=== PATIENT | female | born 1975 | race Caucasian/White ===

== ENCOUNTER → 2017-05-15 11:53 | Outpatient (CLI) | payer OTHER, SELFPAY ==
--- NOTE | 2017-05-15 11:55 | HPBI_ITS ---
MAMMOGRAPHY - BILATERAL SCREENING REASON FOR EXAM: Female, 42 years old. Routine annual screening examination. PERTINENT HISTORY: Sister with breast cancer. Aunts with breast cancer. TECHNIQUE: Digital bilateral breast robert (3D mammographic acquisition) in the CC and MLO projections. 2-D mediolateral oblique (MLO) and craniocaudad (CC) views of both breasts were obtained. CAD: Full Field Digital Mammography with Computer Added Detection was performed. COMPARISON: Comparison is made with prior study dated April 18, 2016 and November 17, 2014. FINDINGS: Breast Composition: There are scattered areas of fibroglandular density. There are no dominant masses or suspicious calcifications. No other significant abnormalities are identified. There has been no significant change since the prior study. HPBI/SCREENING MAMM (CAD), BILAT IMPRESSION: Stable bilateral screening mammogram. Yearly follow-up mammogram recommended. (A) ASSESSMENT CATEGORY: BIRADS Category 1: Negative. A letter regarding these results will be sent to the patient by the facility within 30 days. Approximately 10% of breast cancers are not detected by mammography. A normal mammogram should not delay biopsy of a clinically suspicious abnormality. [id number] Electronically Signed: Matteo Najera MD at 14:32 EDT Tel [phone], Service support ,
== END ==
PROVIDERS: Family Provider Family Medicine; PCP Family Medicine; Visit Provider Obstetrics & Gynecology
DX: Z12.31 Encounter for screening mammogram for malignant neoplasm of breast (principal)
CPT/HCPCS: 77063; 77067

== ENCOUNTER → 2018-06-01 14:48 | Outpatient (CLI) | payer OTHER, SELFPAY ==
--- NOTE | 2018-06-01 15:00 | BD_ITS ---
STUDY: DUAL ENERGY X-RAY ABSORPTIOMETRY / DXA REASON FOR EXAM: Female, 43 years old. Early menopause. Loss of height. TECHNIQUE: Bone Mineral Density (BMD) measurements of lumbar spine and bilateral hips were obtained. COMPARISON: None. FINDINGS: Lumbar Spine (L1-L4): g/cm2 (1.339) / T-score (1.3) / Z-score (1.3) Findings are suggestive of normal bone density with a low fracture risk. Left Femur Total: g/cm2 (1.062) / T-score (0.4) / Z-score (0.7) Left Femoral Neck: g/cm2 (1.075) / T-score (0.3) / Z-score (0.8) Right Femur Total: g/cm2 (0.950) / T-score (-0.5) / Z-score (-0.2) Right Femoral Neck: g/cm2 (0.958) / T-score (-0.6) / Z-score (0.0) BD/Dexa Bone Density Study IMPRESSION: The patient is considered normal as outlined below according to World [place] Organization (WHO) criteria with a low fracture risk. Reference Information: The T-score is the number of standard deviations above or below the standard which is normal for young adults at their peak bone mineral density. The World Health Organization (WHO) interprets the T-scores as follows: Above -1 Normal bone density Between -1 and -2.5 Osteopenia Equal to / or below -2.5 Osteoporosis As a practical clinical guideline, osteopenia may be graded as follows: Mild -1 through -1.5 Moderate -1.6 through -2.0 Severe -2.1 through -2.4 The Z-score is the number of standard deviations above or below age-matched controls. A Z-score of less than -1.5 would be considered abnormal. References: 1. NIH Osteoporosis and Related Bone Diseases http://www.osteo.org 2. International Society for Clinical Densitometry http://www.iscd.org 3. National Osteoporosis Foundation http://www.nof.org Electronically Signed: Matteo Najera, at 11:34 EDT , Service support ,
[2018-06-01 15:44] LABS: Absolute Lymphocyte Count 1.74 X10^3/ul (0.83-4.51); Absolute Neutrophil Count 2.7 X10^3/uL (2.0-7.7); Basophil# 0.03 X10^3/uL; Basophil% 0.6 % (0-1); Hemoglobin 14.2 g/dl (12.0-15.0); Lymphocyte # 1.74 X10^3/ul (4.0); Lymphocyte % 34.8 % (19-41); Mean Corp Hgb Conc 33.8 g/gl (32-36); Mean Corpuscular Hgb 30.1 pg (27.0-32.0); Mean Corpuscular Volume 89.2 fL (81-99); Mean Platelet Vol. 11.3 fl (6.2-12.0); Monocyte# 0.45 X10^3/uL; Neutrophil # 2.67 X10^3/uL (2.7-7.7); Neutrophil % 53.4 % (47-70); Platelet Count 203 K/mm3 (150-450); RBC Distribution Width CV 12.6 % (11.6-14.6); RBC Distribution Width SD 40.6 fl (35.1-43.9); Red Blood Count 4.71 M/mm3 (4.2-5.4)
[2018-06-01 15:45] LABS: POSITIVE COUNT NO; POSITIVE DIFFERENTIAL NO; POSITIVE MORPHOLOGY NO
[2018-06-01 16:06] LABS: Erythrocyte Sedimentation Rate 11 mm/hr (0-20)
[2018-06-01 16:15] LABS: CRP, High Sensitivity Cardiac 1.93 mg/L
[2018-06-01 16:24] LABS: Vitamin D,25 Hydroxy 38.6 ng/mL (29.95-100.01)
[2018-06-03 16:07] LABS: PROEL- A/G Ratio 1.2 (0.7-1.7); PROEL- Albumin 3.9 g/dL (2.9-4.4); PROEL- Alpha-1 Globulin 0.2 g/dL (0.0-0.4); PROEL- Alpha-2 Globulin 0.7 g/dL (0.4-1.0); PROEL- Beta Globulin 1.3 g/dL (0.7-1.3); PROEL- Globulin, Total 3.2 g/dL (2.2-3.9); PROEL- TOTAL PROTEIN 7.1 g/dL (6.0-8.5)
== END ==
LOC: OPBD 14:53 → PAVLAB 15:13
PROVIDERS: Referring Provider Orthopaedic Surgery; Visit Provider Orthopaedic Surgery
DX: M53.3 Sacrococcygeal disorders, not elsewhere classified (principal)
CPT/HCPCS: 36415; 77080; 82306; 84165; 85025; 85652; 86141

== ENCOUNTER → 2018-06-11 10:25 | Outpatient (CLI) | payer OTHER, SELFPAY ==
[2014-12-18 18:49] VITALS: BMI 36.5
--- NOTE | 2018-06-11 10:29 | NM_ITS ---
CLINICAL: 43-year-old female with reported history of bilateral hip, pelvic and low back pain. WHOLE BODY 99m Tc MDP RADIONUCLIDE BONE SCINTIGRAPHY COMPARISON: None available FINDINGS: Following the intravenous administration of 23.3 mCi of 99m Tc MDP, whole body bone images reveal: 1. Increased radiopharmaceutical concentration is identified in the acromioclavicular and sternoclavicular compartments of both shoulders, the patellofemoral compartments of the bilateral knees, second lumbar vertebra posteriorly on the left. 2. The remaining skeletal structures are scintigraphically unremarkable with normal-appearing renal images and urinary bladder activity identified. Facilitated tracer concentration appears evident in the medial femoral and lateral tibial component of the presumably asymptomatic right knee prosthesis. No definitive increased uptake is noted in the left knee arthroplasty. Subtle facilitated uptake is noted in the greater trochanteric aspect of the left proximal femur most consistent with periostitis or trochanteric bursitis. NM/Bone Scan Whole Body IMPRESSION: 1. The increase in radiopharmaceutical concentration finding the acromioclavicular and sternoclavicular compartments of both shoulders, second lumbar vertebra and patellofemoral compartments of the bilateral knees (in the absence of patellar hardware placement) is most consistent with degenerative arthritis. 2. No other definitive scintigraphic abnormalities are defined. Electronically Signed: Gautam Vann DO at 14:10 EDT Tel , Service support ,
== END ==
PROVIDERS: Referring Provider Orthopaedic Surgery; Visit Provider Orthopaedic Surgery
DX: M53.3 Sacrococcygeal disorders, not elsewhere classified (principal)
CPT/HCPCS: 78306

== ENCOUNTER → 2018-06-18 11:52 | Outpatient (CLI) | payer OTHER, SELFPAY ==
--- NOTE | 2018-06-18 11:54 | BI_ITS ---
MAMMOGRAPHY - BILATERAL SCREENING REASON FOR EXAM: Female, 43 years old. Routine annual screening examination. PERTINENT HISTORY: Sister with breast cancer. Aunt with breast cancer. TECHNIQUE: Digital bilateral breast robert (3D mammographic acquisition) in the CC and MLO projections. 2-D mediolateral oblique (MLO) and craniocaudad (CC) views of both breasts were obtained. CAD: Full Field Digital Mammography with Computer Added Detection was performed. COMPARISON: Comparison is made with prior study dated May 15, 2017 and April 18, 1999 FINDINGS: Breast Composition: There are scattered areas of fibroglandular density. There are no dominant masses or suspicious calcifications. Stable small bilateral axillary lymph nodes. No other significant abnormalities are identified. There has been no significant change since the prior study. BI/SCREENING MAMM (CAD), BILAT IMPRESSION: Stable bilateral screening mammogram. Yearly follow-up mammogram recommended. (A) ASSESSMENT CATEGORY: BIRADS Category 2: Benign. A letter regarding these results will be sent to the patient by the facility within 30 days. Approximately 10% of breast cancers are not detected by mammography. A normal mammogram should not delay biopsy of a clinically suspicious abnormality. [id number] Electronically Signed: Matteo Najera, at 13:41 EDT , Service support ,
== END ==
PROVIDERS: Referring Provider Obstetrics & Gynecology; Visit Provider Obstetrics & Gynecology
DX: Z12.31 Encounter for screening mammogram for malignant neoplasm of breast (principal)
CPT/HCPCS: 77063; 77067

== ENCOUNTER → 2018-12-01 14:05 | Outpatient (CLI) | payer OTHER, SELFPAY ==
--- NOTE | 2018-12-01 14:15 | VDLE_ITS ---
Reason For Study: Pain/Edema Procedure LEFT Exam performed in department. GSV is normal. A preliminary report was called and/or faxed CFV is compressible, spontaneous, phasic, to Premiriamsh. competent, and demonstrates normal augmentation. FV is compressible, spontaneous, phasic, competent and demonstrates normal augmentation. POP V is compressible, spontaneous, phasic, competent and demonstrates normal augmentation. T/P Trunk is compressible. PTV is compressible. LT PerV is compressible. Interpretation Summary Deep veins of the left lower extremity are patent and compressible segmentally. There is no evidence of left lower extremity deep vein thrombosis. Valvular competence appears intact within the proximal deep venous system on the left . The left great saphenous vein appears patent and compressible segmentally. Ordering Physician: Hansa Diaz Performed By: Zohra Mathis RVT
== END ==
PROVIDERS: Referring Provider Nurse Practitioner Family; Visit Provider Nurse Practitioner Family
DX: M79.605 Pain in left leg (principal); R60.0 Localized edema
CPT/HCPCS: 93971

== ENCOUNTER 2018-12-03 13:00 | Outpatient (RCR) | payer OTHER, SELFPAY ==
--- NOTE | 2018-11-12 13:56 | HP.PTEVAL_ITS ---
Patient's Visit Information OZZY BAILON is a 43 year old F referred to Physical Therapy by Zaire Severino MD with a diagnosis of bursitis, DDD, radiculopathy. 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 - Subjective Findings: Has multiple injections in LB and L and R hips. Has had bonescans and MRIs. Has h/o B TKA. H/O SI paina nd sciatica. L hip hurts laterally. Turning in bed really hurts L hip . Doctor thinks it is coming from her LB. Has two falls long ago which hurt back/tailbone area. Can't walk too long. Loves to golf and has not been able to due to this injury this year. Swimming on vacation seemed to help. Drives an hour to work here in [place] for 10 years. L hip has hurt for 2 years. Injecctions have not helped. Had therapy for LB and hip which did not help. Had massage whcih did not help. Sleeping is tough as she cannot roll in bed. 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 Has tried to stand and is slightly better. Has some LBP but not as bad as hip. Sometimes gets numb and tingly in L leg with sitting. No problem coughing or sneexing - Pain L hip Pain Intensity (Out of 10): 0 Pain Intensity Range: 0, 9 LBP Pain Intensity (Out of 10): 0 Pain Intensity Range: 0, 10 - Objective Walks normal. Trasnfers slowly and painfully hesitantly from supine. I out of chair. L/S AROM limited in extension with slight L deviation but no pain. SB min limited without pain. flexion feels tight in LB but no increased pain. Tender to touch B gluts and into ITB and torchanteric area. Sensation WNl to gross light touch in LE. reflexes 1/3 patella and achilles. Strength LE 3+/5 hip abd and ext adn flexion without pain, knee flexion/ext 4-, ankles strength 4-. HS mod tight at -45 L 90/90 test limited with pain + SLR and -30 on R. - R SLR. ITB mod tight B. Weak core and hesitant to move especially supine. Normal hip AROM without increased pain. - Goals Goal 1:: I approp HEP water or land for stretching and ROM of LB and core strength. Goal Time Frame: 4-6 Weeks Goal 2:: LEFS <20% disability Goal Time Frame: 4-6 Weeks Goal 3:: Patient feel 50% better overall with pain no worse than 4/10 Goal Time Frame: 4-6 Weeks Goal 4:: Transfer from supine without pain or hesitancy Goal Time Frame: 4-6 Weeks - Rehabilitation Potential Physical Therapy Diagnosis: Radiculopathy and FM pain Rehabilitation Potential: Questionable - Anticipated Interventions Patient/Client Instruction: Educate patient on: Condition, Plan of Care For the Purpose of:: To decrease pain, To increase ROM, To improve muscle performance and motor function, To improve ability of physical actions for home/community/work/leisure Therapeutic Exercise to Include: Strength training, Flexibilty training, In an aquatic setting, Passive ROM, Active ROM, Dynamic Lumbar Stabilization For the Purpose of:: To decrease pain, To improve muscle performance and motor function, To improve ability of physical actions for home/communit y/work/leisure, To improve gait and locomotor functions Thank you for the opportunity to evaluate your patient. For Medicare and Medicare HMO plans, please review the plan of care and approve it. It will need to be FAXED BACK to us at [phone] for Medicare purposes. For Medicare only, by signing this I certify the plan of care. Please let me know if there are questions or concerns regarding this plan of care. Physician Signature: Date:
--- NOTE | 2018-12-03 13:41 | HP.PTDCSUM ---
HP - PT D/C Summary It has been my pleasure to treat OZZY BAILON under orders from Zaire Severino MD, for the diagnosis of bursitis, DDD, radiculopathy for a total of 5 visit(s). Discharge Date: 12/03/18 Please see the following information for a summary of their discharge status. - Subjective Subjective: Today and yesterday have actually been really good days. But, I have had a lot of issues with back and hip pain for about 2 years and it has really limited my function. - Pain L hip Pain Intensity (Out of 10): 3 LBP Pain Intensity (Out of 10): 3 - Overall Improvement % Improvement: 10 - Objective Objective/Function: Pain is intermittent and fluctuates based on the day. Two straight days of very mild or light discomfort. Able to play with her dog 45 minutes. However, states that her pain is generally very limiting in her activities. Pain free low back range of motion. - Goals Goal 1:: I approp HEP water or land for stretching and ROM of LB and core strength. Goal Progress: Not Progressing Goal 2:: LEFS <20% disability Goal Progress: Not Progressing Goal 3:: Patient feel 50% better overall with pain no worse than 4/10 Goal Progress: Not Progressing Goal 4:: Transfer from supine without pain or hesitancy Goal Progress: not tested - Plan Plan: Per conversation with doctor , d/c PT today for f/u visit with doctor - D/C Information Discharge Comments: per doctor request, will f/u with doctor. If there are questions or concerns regarding this patient's physical therapy, please feel free to call me at [phone]. Thank you for the referral of this patient. Sincerely, Curry Bailey, DPT, OCS, CSCS
== END 2018-12-03 19:00 | disposition home or self-care (01) ==
LOC: PT 13:00
PROVIDERS: Referring Provider Anesthesiology Pain Medicine; Visit Provider Anesthesiology Pain Medicine
DX: M51.37 Other intervertebral disc degeneration, lumbosacral region (principal); M70.72 Other bursitis of hip, left hip; M54.17 Radiculopathy, lumbosacral region
CPT/HCPCS: 97110; 97113; 97162; 97530

== ENCOUNTER → 2020-03-30 11:16 | Outpatient (CLI) | payer OTHER, SELFPAY ==
--- NOTE | 2020-03-30 11:23 | BI_ITS ---
MAMMOGRAPHY - BILATERAL SCREENING REASON FOR EXAM: Female, 44 years old. Routine annual screening examination. PERTINENT HISTORY: Sister with breast cancer. Aunts with breast cancer. TECHNIQUE: Digital bilateral breast abdifatah (3D mammographic acquisition) in the CC and MLO projections. 2-D mediolateral oblique (MLO) and craniocaudad (CC) views of both breasts were obtained. CAD: Full Field Digital Mammography with Computer Added Detection was performed. COMPARISON: Comparison is made with prior examination 06/18/2018 and 05/15/2017. FINDINGS: Breast Composition: There are scattered areas of fibroglandular density. There are no dominant masses or suspicious calcifications. Stable benign-appearing bilateral axillary lymph nodes. No other significant abnormalities are identified. There has been no significant change since the prior study. BI/SCRN MAMM (CAD)W/ABDIFATAH BILAT IMPRESSION: Stable bilateral screening mammogram. Yearly follow-up mammogram recommended. (A) ASSESSMENT CATEGORY: BIRADS Category 2: Benign. A letter regarding these results will be sent to the patient by the facility within 30 days. Approximately 10% of breast cancers are not detected by mammography. A normal mammogram should not delay biopsy of a clinically suspicious abnormality. [id number] Electronically Signed: Matteo Najera MD at 13:48 EST , Service support ,
== END ==
PROVIDERS: Referring Provider Student in an Organized Health Care Education/Training Program; Visit Provider Student in an Organized Health Care Education/Training Program
DX: Z12.31 Encounter for screening mammogram for malignant neoplasm of breast (principal)
CPT/HCPCS: 77063; 77067

== ENCOUNTER 2020-06-20 07:59 | Outpatient (RCR) | payer OTHER, SELFPAY ==
[2014-12-18 18:49] VITALS: BMI 36.5
[2020-06-20] MEDS: COVID-19 VACC, MRNA(PFIZER)/PF 30 MCG/0.3 ML SYRINGE IM (13:23)
[2020-07-11] MEDS: COVID-19 VACC, MRNA(PFIZER)/PF 30 MCG/0.3 ML SYRINGE IM (13:00)
== END 2020-08-07 23:59 ==
LOC: IMMUN 07:59
PROVIDERS: Referring Provider Family Medicine; Visit Provider Family Medicine
DX: Z23 Encounter for immunization (principal)
CPT/HCPCS: 0001A; 0002A; 91300

== ENCOUNTER 2021-02-28 05:23 | Day surgery (SDC) | payer OTHER, SELFPAY ==
[2021-02-28] MEDS: Lactated Ringers 1,000 ML 15 ML IV (05:35)
[2021-02-28 05:50] VITALS: BP 147/80; PULSE 59; RESP 16; TEMP 36.4; O2SAT 95; BMI 35.9
--- NOTE | 2021-02-28 06:30 | EGD_PTH ---
PATIENT: OZZY BAILON LOC: EN U#:[id number] AGE/SX: 45/F ROOM: RE02/28/[address]: Dr. Prosper Eric DO : 1975 BED: DIS: 02/28/2021 SPEC #: [id number] RECD: 02/28/21 11:49 STATUS: DOROTHY ROSAS #: [id number] NIKO: 02/28/21 06:[address]: Prosper Eric DEPT: SURGICAL PATHOLOGY RECD BY: Liv Schneider Tissues: A - Gastric mucous membrane B - Duodenum, NOS C - Esophagus, NOS Procedures: Special Stain Group II Surgery Specimen Level IV Alcian Blue/PAS (control) HEADER OPERATION: [place] [place]OP DIAGNOSIS: Brody?s esophagus, GERD TISSUE SUBMITTED: A ? Gastric antrum biopsy for histo and H. pylori, B ? Duodenum biopsy, C ? Distal esophagus biopsy MICROSCOPIC DIAGNOSIS A. Gastric antrum, biopsy: Chronic active gastritis. See comment. B. Duodenum, biopsy: No pathologic change. C. Distal esophagus, biopsy: Gastroesophageal junction with chronic inflammation. Focal intestinal metaplasia consistent with Brody?s esophagus. No evidence of dysplasia. See comment. AM:eren 03/04/2021 COMMENT A. The results of immunohistochemistry for Helicobacter pylori will be reported separately ([id number]). C. Immunohistochemistry ([id number]) for P53 and Ki-67 will be performed and results will be reported separately. Alcian blue/PAS stain with matched control supports the above diagnosis. MICROSCOPIC DESCRIPTION Slides are reviewed. GROSS DESCRIPTION A - Received in fixative is one container labeled with the patient's name and designated gastric antrum biopsy. The specimen consists of multiple irregular fragments of light dewitt soft tissue that in aggregate measure 1 x 0.5 x 0.1 cm. The specimen is totally submitted in one cassette. B - Received in fixative is one container labeled with the patient's name and designated duodenum biopsy. The specimen consists of multiple irregular fragments of light dewitt soft tissue that in aggregate measure 0.7 x 0.5 x 0.1 cm. The specimen is totally submitted in one cassette. C - Received in fixative is one container labeled with the patient's name and designated distal esophagus biopsy. The specimen consists of multiple irregular fragments of light dewitt soft tissue that in aggregate measure 1.5 x 0.5 x 0.1 cm. The specimen is totally submitted in one cassette. / SJ:rg 02/28/21 TC:3 CPT: 31599 x3, 57792
--- NOTE | 2021-02-28 06:30 | IMM_PTH ---
PATIENT: OZZY BAILON LOC: EN U#:[id number] AGE/SX: 45/F ROOM: RE02/28/[address]: Dr. Prosper Eric DO : 1975 BED: DIS: 02/28/2021 SPEC #: [id number] RECD: 02/28/21 13:06 STATUS: DOROTHY RECandelaria #: [id number] NIKO: 02/28/21 06:[address]: Prosper Eric DEPT: IMMUNOHISTOCHEMISTRY RECD BY: Anne Roman Tissues: A - Stomach, NOS C - Esophagus, NOS Procedures: H Pylori (initial) P53 (initial) KI-67 (add) PHYSICIAN & INSTITUTION [place] [id number] SPECIMEN INFORMATION: Tissue Source: A ? Gastric antrum, C ? Distal esophagus biopsy Clinical Info: Brody?s esophagus, GERD Specimen Number: [id number] A & C CPT code: 27209 x2, 76198 METHODOLOGY: Deparaffinized sections of prefer/formalin-fixed tissue or PAP/DQ stained slides are incubated with monoclonal/polyclonal antibodies/oligonucleotide probes. Localization is made via biotin free immunoperoxidase method. Appropriate controls are performed and reacted as expected. Results on target cell population are indicated in the following table: RESULTS: ANTIBODY / CLONE RESULT Block A H Pylori (polyclonal) negative Block C P53 (DO-7) negative Ki-67 (30-9) positive, low These tests were developed and their performance characteristics determined by [facility]. They may not have been cleared or approved by the U.S. Food and Drug Administration. The FDA has determined that such clearance or approval is not necessary. The above immunohistochemical/dualISH markers are ordered and reviewed by the pathologist. INTERPRETATION: A. Gastric antrum, biopsy: Negative for Helicobacter pylori organisms. C. Distal esophagus, biopsy: No evidence of dysplasia. AM:eren 03/05/2021
--- NOTE | 2021-02-28 06:42 | HP.PCM_ITS ---
History and Physical Date of Admission: 02/28/21 45 F who presents to the office today for Referred to this office for evaluation of GERD. Previously seen by other contracts manager for reflux. Taking omeprazole 20mg daily. Takes Gaviscon PRN for acute reflux. Diet modification has included reduction of spicy foods, elimination of nuts and popcorn. Continues to get some reflux in the middle of the night. Additional history of Barretts esophagus, fibromyalgia with costochondritis, arthritis, osteoarthritis. Last colonoscopy and EGD performed 1999 with reports of Brody?s esophagus. 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 ROS Const Constitutional: No anorexia, fatigue, fever(s), weight change or sleep problems Eyes Eyes: No change in vision ENT ENT: No abnormal hearing, difficulty swallowing, mouth lesions, tongue swelling or throat swelling Resp Respiratory: No cough or shortness of breath Cardio Cardiology: No chest pain at rest, chest pain with exertion, shortness of breath or dyspnea on exertion Gastro GI: No difficulty swallowing Genitourinary-Female: No difficulty urinating or burning urination Musc Musculoskeletal: No joint pain, joint swelling, muscle weakness or decreased muscle mass Skin Skin: No hair loss in leg, yellowing of the eye, itchy eyes, rash, skin ulcer or skin swelling Neuro Neurology: No abnormal hearing, abnormal movements, confusion, unsteady gait/balance or memory loss Psych Psychiatric: No anxiety, No confusion and No memory loss Endo Endocrine: No fatigue or weight change Aller/Imm Allergy/Immunologic: No itchy eyes, throat swelling or tongue swelling Esvin/Lymp Hematologic/Lymphatic: No easy bleeding, easy bruising or enlarged lymph nodes Exam Const General: cooperative and comfortable Nutritional Appearance: average body habitus and well nourished [facility] Head: normal to inspection Ears: hearing grossly normal bilaterally Nose: external nose normal Face and sinus: normal facial exam Mouth: oral mucosae normal Throat: posterior oropharynx normal Eyes General: appearance normal, both eyes and all related structures Neck Neck: normal visual inspection Chest Chest palpation & inspection: normal inspection of the chest and normal palpation of entire chest wall Resp Effort & Inspection: normal respiratory effort Auscultation: Bilateral: Clear to Auscultation Cardio Palpation: normal PMI Rate: regular rate Rhythm: regular rhythm GI Inspection: normal to inspection Auscultation: normal bowel sounds Percussion: normal to percussion Palpation: no hepatosplenomegaly Skin General: no rashes or lesions noted Neuro General: patient alert Extrem General: normal to inspection Psych Affect: normal affect Quality Reporting Tobacco Screening ([facility] 138) Smoking Status: Never smoker Assessment and Plan Assessment and Plan (1) Gastroesophageal reflux disease: Plan - Dr. Cheng Friend, DO: Since she is having breakthrough GERD. We will add famotidine at night. (2) Brody esophagus: Status: Acute Plan - Dr. Cheng Friend, DO: We will continue a.m. PPI therapy. We will also perform upper endoscopy for surveillance of Brody's esophagus. She was explained alternatives, risk, benefits including not withstanding bleeding, infection, sepsis, perforation, need for urgent . Have ASA of 1. 3 she will undergo sreening colonoscopy she was explained alternatives, risk, benefits including not withstanding bleeding, infection, sepsis, perforation, need for emergent urgent . She will have ASA of 1. Plan Details Other Medications: New: famotidine 40 mg PO QHS 90 tabs 3RF I have re-examined the patient. There are no clinical changes since date of exam.
[2021-02-28 07:00] VITALS: BP 119/55; BP 147/80; PULSE 55; RESP 16; TEMP 36.1; O2SAT 100
--- NOTE | 2021-02-28 07:02 | OP.EGD_ITS ---
Patient Name: Evy Alves Procedure Date: 02/28/2021 6:13 AM Date of : 1975 Age: 45 Procedure: Upper GI endoscopy Indications: Brody's esophagus Providers: Prosper Eric DO Medicines: See the Anesthesia note for documentation of the administered medications Patient Profile: This is a 45 year old female. Refer to note in patient chart for documentation of history and physical. Patient has symptoms of chronic heartburn. She is status post EGD for Brody's biopsy within the past three years. Complications: No immediate complications. Procedure: Pre-Anesthesia Assessment: - Prior to the procedure, a History and Physical was performed, and patient medications and allergies were reviewed. The patient is competent. The risks and benefits of the procedure and the sedation options and risks were discussed with the patient. All questions were answered and informed consent was obtained. Patient identification and proposed procedure were verified by the physician in the pre-procedure area. Mental Status Examination: alert and oriented. Airway Examination: normal oropharyngeal airway and neck mobility. Respiratory Examination: clear to auscultation. CV Examination: normal. Prophylactic Antibiotics: The patient does not require prophylactic antibiotics. Prior Anticoagulants: The patient has taken no previous anticoagulant or antiplatelet agents. ASA Grade Assessment: II - A patient with mild systemic disease. After reviewing the risks and benefits, the patient was deemed in satisfactory condition to undergo the procedure. The anesthesia plan was to use moderate sedation / analgesia (conscious sedation). Immediately prior to administration of medications, the patient was re-assessed for adequacy to receive sedatives. The heart rate, respiratory rate, oxygen saturations, blood pressure, adequacy of pulmonary ventilation, and response to care were monitored throughout the procedure. The physical status of the patient was re-assessed after the procedure. After obtaining informed consent, the endoscope was passed under direct vision. Throughout the procedure, the patient's blood pressure, pulse, and oxygen saturations were monitored continuously. The Endoscope was introduced through the mouth, and advanced to the second part of duodenum. The upper GI endoscopy was accomplished without difficulty. The patient tolerated the procedure well. Moderate Sedation: Moderate (conscious) sedation was administered by the endoscopy nurse and supervised by the endoscopist. The patient's oxygen saturation, heart rate, blood pressure and response to care were monitored. Total physician intraservice time was 15 minutes. Scope In: 6:49:12 AM Scope Out: 6:56:13 AM Total Procedure Duration Time 0 hours 7 minutes 1 second Findings: LA Grade A (one or more mucosal breaks less than 5 mm, not extending between tops of 2 mucosal folds) esophagitis with no bleeding was found 33 to 37 cm from the incisors. Biopsies were taken with a cold forceps for histology. Verification of patient identification for the specimen was done. Estimated blood loss was minimal. Localized mildly erythematous mucosa without bleeding was found in the gastric antrum. Biopsies were taken with a cold forceps for histology. Estimated blood loss was minimal. Patchy mildly erythematous mucosa without active bleeding and with no stigmata of bleeding was found in the duodenal bulb, in the first portion of the duodenum and in the second portion of the duodenum. This was biopsied with a cold forceps for histology. Verification of patient identification for the specimen was done. Estimated blood loss was minimal. Impression: - LA Grade A reflux esophagitis. Rule out Brody's esophagus. Biopsied. - Erythematous mucosa in the antrum. Biopsied. Recommendation: - Discharge patient to home. - Resume previous diet. - Continue present medications. - Await pathology results. - Repeat upper endoscopy in 1 year for surveillance based on pathology results. - Return to GI office in 2 weeks. Procedure Code(s): --- Professional --- 67086, Esophagogastroduodenoscopy, flexible, transoral; with biopsy, single or multiple 87388, 59, Moderate sedation services provided by the same physician or other qualified health transitional care liaison performing the diagnostic or therapeutic service that the sedation supports, requiring the presence of an independent trained observer to assist in the monitoring of the patient's level of consciousness and physiological status; initial 15 minutes of intraservice time, patient age 5 years or older CPT copyright 2017 [employer]. All rights reserved. The codes documented in this report are preliminary and upon barratte operator review may be revised to meet current compliance requirements. Prosper Eric DO 02/28/2021 7:01:29 AM This report has been signed electronically. Number of Addenda: 1 Note Initiated On: 02/28/2021 6:13 AM Addendum Number: 1 Addendum Date: 11/06/2021 7:29:19 AM MAC was used instead of moderate sedation for the patient. Prosper Eric DO 11/06/2021 7:29:23 AM This report has been signed electronically.
[2021-02-28 07:05] VITALS: BP 115/62; BP 147/80; PULSE 53; RESP 16; O2SAT 98
[2021-02-28 07:10] VITALS: BP 110/70; BP 147/80; PULSE 54; RESP 16; O2SAT 97
[2021-02-28 07:15] VITALS: BP 112/52; BP 147/80; PULSE 55; RESP 16; TEMP 36.2; O2SAT 98
[2021-02-28 07:25] VITALS: BP 147/80
== END 2021-02-28 07:43 | disposition home or self-care (01) ==
LOC: EN 05:27 → AC 05:28
PROVIDERS: Referring Provider Internal Medicine Gastroenterology; Visit Provider Internal Medicine Gastroenterology
PROC: 0DJ08ZZ Inspection of Upper Intestinal Tract, Via Natural or Artificial Opening Endoscopic (ICD-10-PCS; CPT 43235; principal; 2021-02-28 06:25)
DX: K29.50 Unspecified chronic gastritis without bleeding (principal); K21.00 Gastro-esophageal reflux disease with esophagitis, without bleeding; K22.70 Barrett's esophagus without dysplasia; K31.89 Other diseases of stomach and duodenum; M19.90 Unspecified osteoarthritis, unspecified site; Z79.899 Other long term (current) drug therapy
CPT/HCPCS: 43239; 88305; 88313; 88341; 88342; J7120; J2405

== ENCOUNTER 2021-04-01 15:14 | Outpatient (CLI) | payer OTHER, SELFPAY ==
--- NOTE | 2021-04-01 15:16 | BI_ITS ---
MAMMOGRAPHY - BILATERAL SCREENING REASON FOR EXAM: Female, 45 years old. Routine annual screening examination. PERTINENT HISTORY: Sister with breast cancer. Aunts with breast cancer. TECHNIQUE: Digital bilateral breast abdifatah (3D mammographic acquisition) in the CC and MLO projections. 2-D mediolateral oblique (MLO) and craniocaudad (CC) views of both breasts were obtained. CAD: Full Field Digital Mammography with Computer Added Detection was performed. COMPARISON: Comparison is made with prior study dated 03/30/2020 and 06/18/2018. FINDINGS: Breast Composition: There are scattered areas of fibroglandular density. There are no dominant masses or suspicious calcifications. No other significant abnormalities are identified. There has been no significant change since the prior study. BI/SCRN MAMM (CAD)W/ABDIFATAH BILAT IMPRESSION: Stable bilateral screening mammogram. Yearly follow-up mammogram recommended. (A) ASSESSMENT CATEGORY: BIRADS Category 1: Negative. A letter regarding these results will be sent to the patient by the facility within 30 days. Approximately 10% of breast cancers are not detected by mammography. A normal mammogram should not delay biopsy of a clinically suspicious abnormality. [id number] Electronically Signed: Matteo Najera MD at 8:34 EST ,
== END 2021-04-01 23:59 | disposition short-term general hospital (02) ==
LOC: OPBI 15:15
PROVIDERS: Referring Provider Obstetrics & Gynecology; Visit Provider Obstetrics & Gynecology
DX: Z12.31 Encounter for screening mammogram for malignant neoplasm of breast (principal)
CPT/HCPCS: 77063; 77067

== ENCOUNTER 2021-04-08 15:07 | Outpatient (CLI) | payer OTHER, SELFPAY | END 2021-04-08 23:59 | disposition home or self-care (01) | LOC: IMMUN 04-09 15:07 | PROVIDERS: Referring Provider Family Medicine; Visit Provider Family Medicine | DX: Z23 Encounter for immunization (principal) ==

== ENCOUNTER → 2022-06-03 | Outpatient (CLI) | payer OTHER, SELFPAY ==
--- NOTE | 2022-06-03 12:57 | BI_ITS ---
MAMMOGRAPHY - BILATERAL SCREENING REASON FOR EXAM: Female, 47 years old. Routine annual screening examination. PERTINENT HISTORY: Sister with breast cancer. Aunts with breast cancer. TECHNIQUE: Digital bilateral breast abdifatah (3D mammographic acquisition) in the CC and MLO projections. 2-D mediolateral oblique (MLO) and craniocaudad (CC) views of both breasts were obtained. CAD: Full Field Digital Mammography with Computer Added Detection was performed. COMPARISON: Comparison is made with prior study dated April 01, 2021 and March 30, 2020. FINDINGS: Breast Composition: There are scattered areas of fibroglandular density. There are no dominant masses or suspicious calcifications. No other significant abnormalities are identified. There has been no significant change since the prior study. BI/SCRN MAMM (CAD)W/ABDIFATAH BILAT IMPRESSION: Stable bilateral screening mammogram. Yearly follow-up mammogram recommended. (A) ASSESSMENT CATEGORY: BIRADS Category 1: Negative. A letter regarding these results will be sent to the patient by the facility within 30 days. Approximately 10% of breast cancers are not detected by mammography. A normal mammogram should not delay biopsy of a clinically suspicious abnormality. [id number] Electronically Signed: Matteo Najera MD at 15:16 EDT ,
== END | disposition home or self-care (01) ==
LOC: OPBI 12:55
PROVIDERS: PCP Family Medicine; Visit Provider Obstetrics & Gynecology
DX: Z12.31 Encounter for screening mammogram for malignant neoplasm of breast (principal)
CPT/HCPCS: 77063; 77067

== ENCOUNTER 2022-06-12 05:23 | Day surgery (SDC) | payer OTHER, SELFPAY ==
[2022-06-12] VITALS (8 sets, daily range): BP systolic 112–128; BP diastolic 61–76; PULSE 62–69; RESP 16–18; TEMP 36.2–36.9; O2SAT 95–100; BMI 36.8
--- NOTE | 2022-06-12 | GASB_PTH ---
PATIENT: OZZY BAILON LOC: EN U#:[id number] AGE/SX: 47/F ROOM: RE06/12/[address]: Dr. Prosper Eric DO : 1975 BED: DIS: 06/12/2022 SPEC #: [id number] RECD: 06/12/22 12:17 STATUS: DOROTHY RECandelaria #: [id number] NIKO: 06/12/22 00:[address]: rPosper Eric DEPT: SURGICAL PATHOLOGY RECD BY: John Dhaliwal ENTERED: 06/12/22 12:18 SP TYPE: Gastric Bx OTHR DR: Karey Urbina DO Tissues: A - Gastric mucous membrane B - Esophageal mucous membrane Procedures: Special Stain Group II Surgery Specimen Level IV Alcian Blue/PAS (control) HEADER OPERATION: Colonoscopy, EGD ([facility]), biopsy PRE-OP DIAGNOSIS: Brody?s esophagus, gastric reflux, screening TISSUE SUBMITTED: A ? Gastric body biopsy, B ? Distal esophagus biopsy MICROSCOPIC DIAGNOSIS A. Gastric body, biopsy: Mild gastritis. See microscopic description and comment. B. Distal esophagus, biopsy: Fragments of gastric mucosa with chronic inflammation. Intestinal metaplasia (goblet cell metaplasia) not identified. See comment. SJ:rg 06/13/2022 COMMENT A. The results of immunohistochemistry for Helicobacter pylori will be reported separately ([id number]). B. Alcian blue/PAS stain with matched control is used in the evaluation of the specimen. MICROSCOPIC DESCRIPTION Slides are reviewed. A. The specimen shows fragments of gastric mucosa with chronic inflammatory cell infiltrates in the lamina propria consisting of lymphocytes and plasma cells, consistent with mild chronic gastritis. GROSS DESCRIPTION A - Received in fixative is one container labeled with the patient's name and designated gastric body biopsy. The specimen consists of two irregular fragments of light dewitt soft tissue that in aggregate measure 0.6 x 0.3 x 0.1 cm. The specimen is totally submitted in one cassette. B - Received in fixative is one container labeled with the patient's name and designated distal esophagus biopsy. The specimen consists of two irregular fragments of light dewitt soft tissue that in aggregate measure 0.6 x 0.3 x 0.1 cm. The specimen is totally submitted in one cassette. / JOSI:eren 06/12/2022 TC:3 CPT: 05919 x2, 04309
[2022-06-12] MEDS: Lactated Ringers 1,000 ML 15 ML IV (05:57)
--- NOTE | 2022-06-12 06:30 | IMM_PTH ---
PATIENT: OZZY BAILON LOC: EN U#:[id number] AGE/SX: 47/F ROOM: RE06/12/[address]: Dr. Prosper Eric DO : 1975 BED: DIS: 06/12/2022 SPEC #: [id number] RECD: 06/12/22 14:23 STATUS: DOROTHY REQ #: [id number] NIKO: 06/12/22 06:[address]: Prosper Eric DEPT: IMMUNOHISTOCHEMISTRY RECD BY: Anne Roman ENTERED: 06/12/22 14:23 SP TYPE: IMMUNO OTHR DR: Karey Urbina DO Tissues: A - Stomach, NOS Procedures: H Pylori (initial) PHYSICIAN & INSTITUTION [address] [address] SPECIMEN INFORMATION: Tissue Source: A ? Gastric body biopsy Clinical Info: Brody?s esophagus, gastric reflux, screening Specimen Number: [id number] CPT code: 62333 METHODOLOGY: Deparaffinized sections of prefer/formalin-fixed tissue or PAP/DQ stained slides are incubated with monoclonal/polyclonal antibodies/oligonucleotide probes. Localization is made via biotin free immunoperoxidase method. Appropriate controls are performed and reacted as expected. Results on target cell population are indicated in the following table: RESULTS: ANTIBODY / CLONE RESULT Block A H Pylori (polyclonal) negative These tests were developed and their performance characteristics determined by [facility]. They may not have been cleared or approved by the U.S. Food and Drug Administration. The FDA has determined that such clearance or approval is not necessary. The above immunohistochemical/dualISH markers are ordered and reviewed by the Pathologist. INTERPRETATION: A. Gastric body, biopsy: Negative for Helicobacter pylori organisms. SJ:eren 06/13/2022
--- NOTE | 2022-06-12 06:35 | PCM.HP.BLA ---
History and Physical Date of Admission: 06/12/22 OZZY BAILON, is a 46 F who presents to the office today for Follow up. PMH fibromyalgia with costochondritis; arthritis/osteoarthritis GI, outside, established previously for reflux with recommendation for omeprazole 20mg QD and PRN Gaviscon. Reports endoscopy in 1999?s with Brody?s esophagus finding. *BGI established 02.21.21. ?EGD 02.28.21?LA Grade A reflux esophagitis, Brody?s; erythematous antrum and duodenal bulb, gastritis. ?Start sucralfate, omeprazole 40mgQAM and famotidine 40mg QHS Feels she is doing well overall since LV. Reports that with omeprazole 40mg she is not having any symptoms. Currently taking Omeprazole 40mg only. ROS Const Constitutional: No anorexia, fatigue, fever(s), weight change or sleep problems Eyes Eyes: No change in vision ENT ENT: No abnormal hearing, difficulty swallowing, mouth lesions, tongue swelling or throat swelling Resp Respiratory: No cough or shortness of breath Cardio Cardiology: No chest pain at rest, chest pain with exertion, shortness of breath or dyspnea on exertion Gastro GI: No difficulty swallowing Genitourinary-Female: No difficulty urinating or burning urination Musc Musculoskeletal: No joint pain, joint swelling, muscle weakness or decreased muscle mass Skin Skin: No hair loss in leg, yellowing of the eye, itchy eyes, rash, skin ulcer or skin swelling Neuro Neurology: No abnormal hearing, abnormal movements, confusion, unsteady gait/balance or memory loss Psych Psychiatric: No anxiety, No confusion and No memory loss Endo Endocrine: No fatigue or weight change Aller/Imm Allergy/Immunologic: No itchy eyes, throat swelling or tongue swelling Esvin/Lymp Hematologic/Lymphatic: No easy bleeding, easy bruising or enlarged lymph nodes Exam Const General: cooperative and comfortable Nutritional Appearance: average body habitus and well nourished [facility] Head: normal to inspection Ears: hearing grossly normal bilaterally Nose: external nose normal Face and sinus: normal facial exam Mouth: oral mucosae normal Throat: posterior oropharynx normal Eyes General: appearance normal, both eyes and all related structures Neck Neck: normal visual inspection Chest Chest palpation & inspection: normal inspection of the chest and normal palpation of entire chest wall Resp Effort & Inspection: normal respiratory effort Auscultation: Bilateral: Clear to Auscultation Cardio Palpation: normal PMI Rate: regular rate Rhythm: regular rhythm GI Inspection: normal to inspection Auscultation: normal bowel sounds Percussion: normal to percussion Palpation: no hepatosplenomegaly Skin General: no rashes or lesions noted Neuro General: patient alert Extrem General: normal to inspection Psych Affect: normal affect Quality Reporting Tobacco Screening ([facility] 138) Smoking Status: Never smoker Assessment and Plan Assessment and Plan (1) Brody esophagus: ?Status:?Chronic ?Plan: Patient doing very well on pantoprazole.? She has had 1 or 2 breakthrough episodes of acid reflux disease.? She denies any nausea.? She denies any chest pain or shortness of breath.? She does not seem to be experiencing any side effects from PPI therapy.? She takes a vitamin D supplement, probiotic supplement, zinc supplement and vitamin D supplement along with calcium.? She will undergo surveillance upper endoscopy.? She was explained alternatives, risk, benefits including outstanding bleeding, infection, sepsis, perforation, need for emergent surgery? and .? She will have an ASA of 1. (2) Gastric reflux: ?Status:?Chronic (3) Screening for colon cancer: ?Status:?Acute ?Plan: She will need to undergo screening for colon cancer.? National guidelines for screening for colonoscopy is 45 years of age.? She is 46 years old.? She does not have any abdominal pain.? She is not having any cramping.? She has had no change in bowel movements.? She is not having any bleeding per rectum.? Overall she is in very good health.? She was explained alternatives, risk, benefits including not withstanding bleeding, infection, sepsis, perforation, need for emergent surgery and .? She will have an ASA 1. I have examined the patient and the H&P has been reviewed. There are no clinical changes since date of exam.
--- NOTE | 2022-06-12 07:10 | OP.EGD_ITS ---
Patient Name: Evy Alves Procedure Date: 06/12/2022 6:21 AM Date of : 1975 Age: 47 Procedure: Upper GI endoscopy Indications: Esophageal reflux Providers: Prosper Eric DO Referring MD: Prosper Eric DO Medicines: Monitored Anesthesia Care Patient Profile: This is a 47 year old female. Refer to note in patient chart for documentation of history and physical. Patient has symptoms of chronic heartburn. Complications: No immediate complications. Procedure: Pre-Anesthesia Assessment: - Prior to the procedure, a History and Physical was performed, and patient medications and allergies were reviewed. The risks and benefits of the procedure and the sedation options and risks were discussed with the patient. All questions were answered and informed consent was obtained. Patient identification and proposed procedure were verified by the physician in the pre-procedure area. Mental Status Examination: alert and oriented. Airway Examination: normal oropharyngeal airway and neck mobility. Respiratory Examination: clear to auscultation. CV Examination: normal. Prophylactic Antibiotics: The patient does not require prophylactic antibiotics. Prior Anticoagulants: The patient has taken no previous anticoagulant or antiplatelet agents. After reviewing the risks and benefits, the patient was deemed in satisfactory condition to undergo the procedure. The anesthesia plan was to use monitored anesthesia care (MAC). Immediately prior to administration of medications, the patient was re-assessed for adequacy to receive sedatives. The heart rate, respiratory rate, oxygen saturations, blood pressure, adequacy of pulmonary ventilation, and response to care were monitored throughout the procedure. The physical status of the patient was re-assessed after the procedure. After obtaining informed consent, the endoscope was passed under direct vision. Throughout the procedure, the patient's blood pressure, pulse, and oxygen saturations were monitored continuously. The Colonoscope was introduced through the mouth, and advanced to the second part of duodenum. The upper GI endoscopy was accomplished without difficulty. The patient tolerated the procedure well. Scope In: 6:39:43 AM Scope Out: 6:44:38 AM Total Procedure Duration Time 0 hours 4 minutes 55 seconds Findings: The Z-line was irregular and was found 40 cm from the incisors. Biopsies were taken with a cold forceps for histology. Verification of patient identification for the specimen was done. Estimated blood loss was minimal. A small hiatal hernia was present. No other significant abnormalities were identified in a careful examination of the stomach. The second portion of the duodenum was normal. Patchy mildly erythematous mucosa without bleeding was found in the gastric body. Biopsies were taken with a cold forceps for histology. Verification of patient identification for the specimen was done. Estimated blood loss was minimal. Impression: - Z-line irregular, 40 cm from the incisors. Biopsied. - Small hiatal hernia. - Normal second portion of the duodenum. - Erythematous mucosa in the gastric body. Biopsied. Recommendation: - Discharge patient to home. - Resume previous diet. - Continue present medications. Procedure Code(s): --- Professional --- 95963, Esophagogastroduodenoscopy, flexible, transoral; with biopsy, single or multiple CPT copyright 2017 [employer]. All rights reserved. The codes documented in this report are preliminary and upon beater operator review may be revised to meet current compliance requirements. Prosper Eric DO 06/12/2022 7:09:43 AM This report has been signed electronically. Number of Addenda: 0 Note Initiated On: 06/12/2022 6:21 AM
--- NOTE | 2022-06-12 07:10 | OP.CCLET_ITS ---
06/12/2022 Karey Urbina Do Re : Upper GI endoscopy procedure for Evy Alves Dear Ciara This procedure was performed on May. My impressions and recommendations are as follows: Impressions : - Z-line irregular, 40 cm from the incisors. Biopsied. - Small hiatal hernia. - Normal second portion of the duodenum. - Erythematous mucosa in the gastric body. Biopsied. Recommendations : - Discharge patient to home. - Resume previous diet. - Continue present medications. My findings are described in the full procedure note, which is enclosed. If I can be of further assistance, please feel free to contact me at . Sincerely, Prosper Eric, 06/12/2022 7:09:43 AM This report has been signed electronically.
--- NOTE | 2022-06-12 07:12 | OP.COLON_ITS ---
Patient Name: Evy Alves Procedure Date: 06/12/2022 6:44 AM Date of : 1975 Age: 47 Procedure: Colonoscopy Indications: Screening for colorectal malignant neoplasm Providers: Prosper Eric DO Referring MD: Prosper Eric DO Medicines: Monitored Anesthesia Care Patient Profile: This is a 47 year old female. Refer to note in patient chart for documentation of history and physical. Patient has symptoms of chronic heartburn. Last Colonoscopy: none. The patient's first colonoscopy is today. Complications: No immediate complications. Procedure: Pre-Anesthesia Assessment: - Prior to the procedure, a History and Physical was performed, and patient medications and allergies were reviewed. The risks and benefits of the procedure and the sedation options and risks were discussed with the patient. All questions were answered and informed consent was obtained. Patient identification and proposed procedure were verified by the physician in the pre-procedure area. Mental Status Examination: alert and oriented. Airway Examination: normal oropharyngeal airway and neck mobility. Respiratory Examination: clear to auscultation. CV Examination: normal. Prophylactic Antibiotics: The patient does not require prophylactic antibiotics. Prior Anticoagulants: The patient has taken no previous anticoagulant or antiplatelet agents. After reviewing the risks and benefits, the patient was deemed in satisfactory condition to undergo the procedure. The anesthesia plan was to use monitored anesthesia care (MAC). Immediately prior to administration of medications, the patient was re-assessed for adequacy to receive sedatives. The heart rate, respiratory rate, oxygen saturations, blood pressure, adequacy of pulmonary ventilation, and response to care were monitored throughout the procedure. The physical status of the patient was re-assessed after the procedure. After I obtained informed consent, the scope was passed under direct vision. Throughout the procedure, the patient's blood pressure, pulse, and oxygen saturations were monitored continuously. The Colonoscope was introduced through the anus and advanced to the cecum, identified by appendiceal orifice and ileocecal valve. The colonoscopy was performed without difficulty. The patient tolerated the procedure well. The quality of the bowel preparation was fair. Scope In: 6:46:49 AM Scope Withdrawal Time 0 hours 11 minutes 44 seconds Scope Out: 7:03:12 AM Total Procedure Duration Time 0 hours 16 minutes 23 seconds Findings: The perianal and digital rectal examinations were normal. Semi-liquid stool was found in the sigmoid colon, at the hepatic flexure, in the ascending colon and in the cecum, making visualization difficult. Lavage of the area was performed, resulting in clearance with fair visualization. The exam was otherwise without abnormality on direct and retroflexion views. Impression: - Preparation of the colon was fair. - Stool in the sigmoid colon, at the hepatic flexure, in the ascending colon and in the cecum. - The examination was otherwise normal on direct and retroflexion views. - No specimens collected. Recommendation: - Discharge patient to home. - Resume previous diet. - Continue present medications. - Repeat colonoscopy in 5 years for screening purposes. Procedure Code(s): --- Professional --- G0121, Colorectal cancer screening; colonoscopy on individual not meeting criteria for high risk CPT copyright 2017 [employer]. All rights reserved. The codes documented in this report are preliminary and upon lead software tester review may be revised to meet current compliance requirements. Prosper Eric DO 06/12/2022 7:12:27 AM This report has been signed electronically. Number of Addenda: 0 Note Initiated On: 06/12/2022 6:44 AM
--- NOTE | 2022-06-12 07:13 | OP.CCLET_ITS ---
06/12/2022 Karey Urbina Do Re : Colonoscopy procedure for Evy Alves Dear Ciara This procedure was performed on May. My impressions and recommendations are as follows: Impressions : - Preparation of the colon was fair. - Stool in the sigmoid colon, at the hepatic flexure, in the ascending colon and in the cecum. - The examination was otherwise normal on direct and retroflexion views. - No specimens collected. Recommendations : - Discharge patient to home. - Resume previous diet. - Continue present medications. - Repeat colonoscopy in 5 years for screening purposes. My findings are described in the full procedure note, which is enclosed. If I can be of further assistance, please feel free to contact me at . Sincerely, Prosper Eric, 06/12/2022 7:12:27 AM This report has been signed electronically.
[2022-06-12] MEDS: Mag Hydrox/Al Hydrox/Simeth 30 ML UDC 15 ML PO (08:04)
== END 2022-06-12 08:19 | disposition home or self-care (01) ==
LOC: EN 05:24 → AC 05:27
PROVIDERS: PCP Family Medicine; Referring Provider Family Medicine; Visit Provider Internal Medicine Gastroenterology
PROC: 0DJD8ZZ Inspection of Lower Intestinal Tract, Via Natural or Artificial Opening Endoscopic (ICD-10-PCS; CPT 45378; principal; 2022-06-12 06:25)
DX: Z12.11 Encounter for screening for malignant neoplasm of colon (principal); K44.9 Diaphragmatic hernia without obstruction or gangrene; K31.89 Other diseases of stomach and duodenum; K22.70 Barrett's esophagus without dysplasia; K29.70 Gastritis, unspecified, without bleeding; K21.00 Gastro-esophageal reflux disease with esophagitis, without bleeding
CPT/HCPCS: 43239; G0121; 88305; 88313; 88342; J7120; J2405

== ENCOUNTER → 2023-04-13 | Outpatient (CLI) | payer OTHER, SELFPAY ==
--- OUTSIDE RECORDS SUMMARY | 2023-04-13 09:58 | XMS RPT_ITS | CCD ---
Author Name Unknown Address [address] [place] [address] Organization [facility] Care Team Providers Care On Air Director Name Role Phone SRIKANTH SOLIZ Unavailable Unavailable SRIKANTH SOLIZ Unavailable Unavailable SRIKANTH SOLIZ Unavailable Unavailable Srikanth Soliz Unavailable Beverly Warner Primary Care Provider [phone] Srikanth Soliz Unavailable Beverly Warner MD Primary Care Provider [phone] SRIKANTH SOLIZ MD Primary Care Physician [phone] CHEKO LONG, SILVIO Goldsmith Attending Unavailable MARTÍNEZ SCHOFIELD., DR. SRIKANTH Hernandez Primary Care Unavai lable Allergies Allergy Classification Reported Allergen(s) Allergy Type Date of Onset Reaction(s) Facility Contrast Media (2 sources) Contrast media Substance Allergy 05-08-2017 [facility] Opioid Agonists (4 sources) Codeine Drug Allergy 05-27-2007 Vomiting [facility] Work Phone: Penicillins (antibiotic) (2 sources) Penicillins Drug Allergy 05-27-2007 [facility] Work Phone: (8 sources) Codeine Drug Allergy 05-27-2007 Vomiting [facility] (4 sources) Contrast media Drug Allergy 05-08-2017 [facility] (4 sources) Penicillins Propensity to adverse reactions 05-27-2007 [facility] Medications Completed/Discontinued Medications Medication Drug Class(es) Dates Sig (Normalized) Sig (Original) ascorbic acid 1000 mg oral tablet (6 sources) Vitamin C Start: 05-28-2007 ascorbic acid(VITAMIN C 1,000 MG TAB) Take one(1) tablet daily. 0 05/28/2007 Active Problems Active Problems Problem Classification Problem Date Documented Date Episodic/Chronic Esophageal disorders (7 sources) Gastroesophageal reflux disease without esophagitis; Translations: [Gastro-esophageal reflux disease without esophagitis] Onset: 08-26-2015 05-08-2017 Chronic Other circulatory disease (1 source) Elevated blood-pressure reading without diagnosis of hypertension; Translations: [Elevated blood pressure reading without diagnosis of hypertension] Episodic Other non-traumatic joint disorders (1 source) Joint pain; Translations: [Pain in unspecified joint] Episodic Other screening for suspected conditions (not mental disorders or infectious disease) (1 source) Patient encounter status; Translations: [Encounter for screening mammogram for malignant neoplasm of breast] Episodic Unclassified (1 source) Unknown / UNK(Unknown) Onset: 09-10-2016 Unclassified (3 sources) Patient encounter status; Translations: [Routine lab draw] Past or Other Problems Problem Classification Problem Date Documented Da te Episodic/Chronic Unclassified (1 source) XRAY OF SPINE, T14.8,M54.5 Onset: 09-10-2016 Results Test Name Value Interpretation Reference Range Facil ity Vital Signs Date Time Vital Sign Value Performing Clinician Faci lity 05-03-2021 13:18-0500 Body height 180.3 cm Beverly Warner MD Work Phone: [facility] 05-03-2021 13:18-0500 Body temperature 97.2 [degF] Beverly Warner MD Work Phone: [facility] 05-03-2021 13:18-0500 Body weight 119.3 kg Beverly Warner MD Work Phone: [facility] 05-03-2021 13:18-0500 Diastolic blood pressure 80 mm[Hg] Beverly Warner MD Work Phone: [facility] 05-03-2021 13:18-0500 Heart rate 87 /min Beverly Warner MD Work Phone: [facility] 05-03-2021 13:18-0500 SaO2% (BldA) [Mass fraction] 97 % Beverly Warner MD Work Phone: [facility] 05-03-2021 13:18-0500 Systolic blood pressure 124 mm[Hg] Beverly Warner MD Work Phone: [facility] 03-09-2020 15:52-0500 BP Diastolic 100 mm[Hg] [facility] 03-09-2020 15:52-0500 BP Systolic 140 mm[Hg] [facility] 03-09-2020 12:58-0500 Body Temperature 97.9 [degF] [facility] 03-09-2020 12:58-0500 Body weight 123.38 kg [facility] 03-09-2020 12:58-0500 Height 180.3 cm [facility] 03-09-2020 12:58-0500 Pulse (Heart Rate) 73 /min [facility] 03-09-2020 12:58-0500 Pulse Oximetry 97 % [facility] Encounters Encounter Date Encounter Type Care Provider Facility Start: 01-10-2022 End: 01-11-2022 ambulatory SILVIO STILL PA-C Facility:B Start: 01-10-2022 End: 01-10-2022 Patient encounter procedure SILVIO STILL PA-C [facility] Start: 05-03-2021 End: 05-03-2021 Patient encounter procedure Beverly Warner MD Work Phone: [facility] Primary Care Procedures Date Procedure Procedure Detail Performing Clinician Start: 05-03-2021 Adult depression scr eening assessment Beverly Warner MD Work Phone: Start: 04-15-2021 Mammography Beverly terrazas MD Work Phone: Start: 03-09-2020 Adult depression scr eening assessment Beverly Warner MD Work Phone: Start: 12-06-2018 Mammography [facility] Provid er Plan of Treatment Date Care Activity Detail Author Start: 05-09-2027 Urine microalbumin profile [facility] Start: 06-22-2025 LIPID SCREEN LIPID SCREEN [facility] Start: 06-23-2023 DIABETES SCREEN DIABETES SCREEN [facility] Start: 05-09-2022 LIPID SCREEN LIPID SCREEN [facility] Start: 05-03-2022 Adult depression scr eening assessment DEPRESSION SCREENING [facility] Start: 04-15-2022 Mammography MAMMOGRAM [facility] Start: 03-04-2022 DIABETES SCREEN DIABETES SCREEN [facility] Start: 08-29-2021 Influenza vaccination INFLUENZA (#1) [facility] Immunizations Immunization Date Immunization Notes Care Provider Fa cility 05-08-2017 tetanus toxoid, redu rosalva diphtheria toxoid, and acellular pertussis vaccine, adsorbed [facility] Provider [facility] 10-01-2016 tetanus toxoid, redu rosalva diphtheria toxoid, and acellular pertussis vaccine, adsorbed [facility] Provider [facility] 12-31-2012 influenza, seasonal, injectable [facility] Provider [facility] Payers Date Payer Category Payer Unknown [id number] 2013 Unknown [id number] 1975 Unknown [id number] Social History Date Type Detail Facility Start: 05-08-2017 End: 04-22-2019 Tobacco smoking status NHIS Never smoker [facility] Start: 05-08-2017 End: 04-22-2019 Tobacco use and exposure Never used [facility] Start: 04-22-2019 End: 05-03-2021 Alcohol intake Current drinker of alcohol (finding) [facility] Start: 05-08-2017 Alcohol Comment sometimes [facility] Start: 1975 Sex Assigned At Not on file [facility] Exposure to SARS-CoV -2 (event) Not sure [facility] Tobacco smoking status No Smokin g Status Entered [facility] Sex Assigned At Female [facility] Clinical Notes 06-28-2020 to 01-10-2022 Patient Kai Warner MD - 05/03/2021 1:18 PM ESTTelephone Encounter - Za Lux - 01/16/2021 11:11 AM ESTTelephone Encounter - Ara Yepez Ma - 06/28/2020 2:06 PM EDT Note Date & Type Note Facility 01-10-2022 Note ORIGINAL EXAMINATION: MRI OF THE RIGHT ELBOW WITHOUT CONTRAST 01/10/2022 11:35 am TECHNIQUE: Multiplanar multisequence MRI of the right elbow was performed without the administration of intravenous contrast. COMPARISON: None. HISTORY: ORDERING SYSTEM PROVIDED HISTORY: Reason for Exam: CONTUSION OF RIGHT ELBOW, SPRAIN OF RIGHT ELBOW FINDINGS: The biceps tendon and triceps tendon appear intact. The common extensor tendon and common flexor tendons appear intact with mild increased signal. The ulnar collateral ligament, lateral ligament complex and annular ligament appear intact. There is a an elbow effusion. No asymmetric muscle atrophy or intramuscular edema seen. No fracture or aggressive bony lesion identified. IMPRESSION: Joint effusion Mild tendinosis of the common flexor and common extensor tendons. Interpreted by: Zachary Granda MD Preliminary Report By: Zachary Granda MD Electronically signed By Zachary Granda MD Dictated Date: 01/10/2022 12:50:14 PM Prelim Date: 01/10/2022 12:53:13 PM Sign Date: 01/10/2022 12:53:13 PM Ordering Provider: [facility] [address] 01-10-2022 Note ORIGINAL EXAMINATION: MRI OF THE RIGHT ELBOW WITHOUT CONTRAST 01/10/2022 11:35 am TECHNIQUE: Multiplanar multisequence MRI of the right elbow was performed without the administration of intravenous contrast. COMPARISON: None. HISTORY: ORDERING SYSTEM PROVIDED HISTORY: Reason for Exam: CONTUSION OF RIGHT ELBOW, SPRAIN OF RIGHT ELBOW FINDINGS: The biceps tendon and triceps tendon appear intact. The common extensor tendon and common flexor tendons appear intact with mild increased signal. The ulnar collateral ligament, lateral ligament complex and annular ligament appear intact. There is a an elbow effusion. No asymmetric muscle atrophy or intramuscular edema seen. No fracture or aggressive bony lesion identified. IMPRESSION: Joint effusion Mild tendinosis of the common flexor and common extensor tendons. Interpreted by: Zachary Granda MD Preliminary Report By: Zachary Granda MD Electronically signed By Zachary Granda MD Dictated Date: 01/10/2022 12:50:14 PM Prelim Date: 01/10/2022 12:53:13 PM Sign Date: 01/10/2022 12:53:13 PM Ordering Provider: SILVIO STILL [facility] 05-03-2021 Note HNO ID: [id number] Author: Beverly Warner MD Service: ? Author Type: Physician Type: Progress Notes Filed: 05/03/2021 1:50 PM Note Text: Subjective Evy Alves is a 45 year old female who presents for Physical The history is provided by the patient. 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 She has family history of rheumatoid arthritis in mother. Review of Systems Constitutional: Negative for fever, malaise/fatigue and weight loss. HENT: Negative for hearing loss and tinnitus. Eyes: Negative for blurred vision and double vision. Respiratory: Negative for cough and shortness of breath. Cardiovascular: Negative for chest pain and palpitations. Gastrointestinal: Negative for abdominal pain, constipation, diarrhea, nausea and vomiting. Genitourinary: Negative for dysuria, frequency, hematuria and urgency. Musculoskeletal: Negative for falls and myalgias. Skin: Negative for rash. Neurological: Negative for dizziness, tingling, sensory change and weakness. Endo/Heme/Allergies: Negative for polydipsia. Psychiatric/Behavioral: Negative for depression. PAST MEDICAL HISTORY Diagnosis Date - Arthritis - Rothman's esophagus - Diarrhea - Fibromyalgia - Osteoarthritis PAST SURGICAL HISTORY Procedure Laterality Date - COLONOSCOP W/ OR W/O [facility] SPEC 1999 Colonoscopy - EGD W/O OR W/BRUSH/WASH 1999 EGD - HYSTERECTOMY 2013 - LAPAROSCOPY W/BIOPSY - PAST SURGICAL HISTORY OF rigth knee partial kneecap remeoved - PAST SURGICAL HISTORY OF both feet, bunion and hammertoes - PAST SURGICAL HISTORY OF right elbow - PAST SURGICAL HISTORY OF right patella broken. removed pieces. - PAST SURGICAL HISTORY OF 1989 bunion removal - PAST SURGICAL HISTORY OF left elbow. arthoscopic - REMOVAL GALLBLADDER 2011 - REMOVAL OF KNEE CARTILAGE 1999 right knee - REMOVAL OF TONSILS,<12 Y/O Tonsillectomy - TOTAL KNEE REPLACEMENT left - TOTAL KNEE REPLACEMENT 2014 right FAMILY HISTORY Problem Relation Age of Onset - Heart disease Mother - Diabetes Father - Cancer Sister - Cancer Brother rothman's Social History Tobacco Use - Smoking status: Never Smoker - Smokeless tobacco: Never Used Vaping Use - Vaping Use: Never used Substance Use Topics - Alcohol use: Yes Comment: sometimes - Drug use: No Current Meds famotidine (PEPCID) 40 mg tablet Take 40 mg by mouth daily at bedtime. VITAMIN E ORAL Take by mouth once daily. organ concentrates (ADRENAL ORAL) Take by mouth. adrenalstability. CALCIUM CARB/MAGNESIUM CARB (CALCIUM AND MAGNESIUM CARBONATES ORAL) Take by mouth. ascorbic acid(VITAMIN C 1,000 MG TAB) Take one(1) tablet daily. MULTIVITAMIN TAB Take one(1) tablet daily. benzonatate (TESSALON PERLES) 100 mg capsule Take 1 capsule by mouth three times daily as needed for Cough. topiramate (TOPAMAX) 100 mg tablet Take 100 mg by mouth as needed. omeprazole (PRILOSEC) 20 mg capsule Take 20 mg by mouth once daily. Objective There were no vitals taken for this visit. Physical Exam Vitals reviewed. Constitutional: Appearance: Normal appearance. HENT: Head: Normocephalic and atraumatic. Right Ear: Tympanic membrane, ear canal and external ear normal. There is no impacted cerumen. Left Ear: Tympanic membrane, ear canal and external ear normal. There is no impacted cerumen. Eyes: General: Right eye: No discharge. Left eye: No discharge. Extraocular Movements: Extraocular movements intact. Conjunctiva/sclera: Conjunctivae normal. Pupils: Pupils are equal, round, and reactive to light. Cardiovascular: Rate and Rhythm: Normal rate and regular rhythm. Heart sounds: Normal heart sounds. Pulmonary: Effort: Pulmonary effort is normal. No respiratory distress. Breath sounds: Normal breath sounds. No stridor. No wheezing. Abdominal: General: Bowel sounds are normal. There is no distension. Palpations: Abdomen is soft. There is no mass. Tenderness: There is no abdominal tenderness. Musculoskeletal: General: Normal range of motion. Cervical back: Normal range of motion and neck supple. Skin: General: Skin is warm and dry. Neurological: Mental Status: She is alert and oriented to person, place, and time. Psychiatric: Mood and Affect: Mood and affect normal. Cognition and Memory: Memory normal. ASSESSMENT/PLAN: 1. Annual physical exam - ICD9: V70.0, ICD10: Z00.00 (primary diagnosis) - Counseled on healthy diet and regular exercise - CBC + DIFF - COMP METABOLIC PANEL - LIPID PANEL BASIC -She had a mammogram done earlier this year, she is up-to-date with Pap smear 3. Arthralgia, unspecified joint - ICD9: 719.40, ICD10: M25.50 - RHEUMATOID FACTOR BL Beverly Warner MD [facility] 05-03-2021 Instructions Beverly Warner MD - 05/03/2021 1:41 PM EST Please get fasting blood work done. Fasting is for at least 12 hours and nothing to eat. You may drink plenty of water during that time. Our lab downstairs is open at 7am on mornings and 8am on Thursday mornings. We will print your lab slips for you to take with you today. documented in this encounter [facility] 05-03-2021 History of Presen t illness Narrative Subjective Evy Alves is a 45 year old female who presents for Physical The history is provided by the patient. 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 She has family history of rheumatoid arthritis in mother. Review of Systems Constitutional: Negative for fever, malaise/fatigue and weight loss. HENT: Negative for hearing loss and tinnitus. Eyes: Negative for blurred vision and double vision. Respiratory: Negative for cough and shortness of breath. Cardiovascular: Negative for chest pain and palpitations. Gastrointestinal: Negative for abdominal pain, constipation, diarrhea, nausea and vomiting. Genitourinary: Negative for dysuria, frequency, hematuria and urgency. Musculoskeletal: Negative for falls and myalgias. Skin: Negative for rash. Neurological: Negative for dizziness, tingling, sensory change and weakness. Endo/Heme/Allergies: Negative for polydipsia. Psychiatric/Behavioral: Negative for depression. PAST MEDICAL HISTORY Diagnosis Date Arthritis Rothman's esophagus Diarrhea Fibromyalgia Osteoarthritis PAST SURGICAL HISTORY Procedure Laterality Date COLONOSCOP W/ OR W/O [facility] SPEC 1999 Colonoscopy EGD W/O OR W/BRUSH/WASH 1999 EGD HYSTERECTOMY 2013 LAPAROSCOPY W/BIOPSY PAST SURGICAL HISTORY OF rigth knee partial kneecap remeoved PAST SURGICAL HISTORY OF both feet, bunion and hammertoes PAST SURGICAL HISTORY OF right elbow PAST SURGICAL HISTORY OF right patella broken. removed pieces. PAST SURGICAL HISTORY OF 1989 bunion removal PAST SURGICAL HISTORY OF left elbow. arthoscopic REMOVAL GALLBLADDER 2012 REMOVAL OF KNEE CARTILAGE 1999 right knee REMOVAL OF TONSILS,<12 Y/O Tonsillectomy TOTAL KNEE REPLACEMENT left TOTAL KNEE REPLACEMENT 2015 right FAMILY HISTORY Problem Relation Age of Onset Heart disease Mother Diabetes Father Cancer Sister Cancer Brother rothman's Social History Tobacco Use Smoking status: Never Smoker Smokeless tobacco: Never Used Vaping Use Vaping Use: Never used Substance Use Topics Alcohol use: Yes Comment: sometimes Drug use: No Current Meds famotidine (PEPCID) 40 mg tablet Take 40 mg by mouth daily at bedtime. VITAMIN E ORAL Take by mouth once daily. organ concentrates (ADRENAL ORAL) Take by mouth. adrenalstability. CALCIUM CARB/MAGNESIUM CARB (CALCIUM & MAGNESIUM CARBONATES ORAL) Take by mouth. ascorbic acid(VITAMIN C 1,000 MG TAB) Take one(1) tablet daily. MULTIVITAMIN TAB Take one(1) tablet daily. benzonatate (TESSALON PERLES) 100 mg capsule Take 1 capsule by mouth three times daily as needed for Cough. topiramate (TOPAMAX) 100 mg tablet Take 100 mg by mouth as needed. omeprazole (PRILOSEC) 20 mg capsule Take 20 mg by mouth once daily. Objective There were no vitals taken for this visit. Physical Exam Vitals reviewed. Constitutional: Appearance: Normal appearance. HENT: Head: Normocephalic and atraumatic. Right Ear: Tympanic membrane, ear canal and external ear normal. There is no impacted cerumen. Left Ear: Tympanic membrane, ear canal and external ear normal. There is no impacted cerumen. Eyes: General: Right eye: No discharge. Left eye: No discharge. Extraocular Movements: Extraocular movements intact. Conjunctiva/sclera: Conjunctivae normal. Pupils: Pupils are equal, round, and reactive to light. Cardiovascular: Rate and Rhythm: Normal rate and regular rhythm. Heart sounds: Normal heart sounds. Pulmonary: Effort: Pulmonary effort is normal. No respiratory distress. Breath sounds: Normal breath sounds. No stridor. No wheezing. Abdominal: General: Bowel sounds are normal. There is no distension. Palpations: Abdomen is soft. There is no mass. Tenderness: There is no abdominal tenderness. Musculoskeletal: General: Normal range of motion. Cervical back: Normal range of motion and neck supple. Skin: General: Skin is warm and dry. Neurological: Mental Status: She is alert and oriented to person, place, and time. Psychiatric: Mood and Affect: Mood and affect normal. Cognition and Memory: Memory normal. ASSESSMENT/PLAN: 1. Annual physical exam - ICD9: V70.0, ICD10: Z00.00 (primary diagnosis) - Counseled on healthy diet and regular exercise - CBC + DIFF - COMP METABOLIC PANEL - LIPID PANEL BASIC -She had a mammogram done earlier this year, she is up-to-date with Pap smear 3. Arthralgia, unspecified joint - ICD9: 719.40, ICD10: M25.50 - RHEUMATOID FACTOR BL Beverly Warner MD documented in this encounter [facility] 01-16-2021 Miscellaneous Notes ----- Message from Jessica Alves sent at 01/16/2021 10:53 AM EST ----- Regarding: Medicine / [Timmy] / [Issue] Patient has been identified by name and Date of (Y/N): Y Patient: Evy Alves Date of : 1975 Provider for this encounter: Beverly Warner MD Reason for the call/escalation: Requesting a referral for Dr. Cheng, Friend- gastro , shes not she if she needs a referral since its a specialist. She does have gerd or acid reflux Was Patient Referred to [facility]/Seek Emergency Treatment (Y/N): n/a Did Patient Agree (Y/N): n/a Was An Attempt Made To Transfer The Patient To The Office (Y/N): n/a Were You Able To Reach Someone At The Office (Y/N): n/a If Yes - Patient Was Transferred To (Caregivers Name): n/a If No - Which [facility] Leadership On Air Director Did You Speak With Regarding This Patient: n/a Was an appointment scheduled (Y/N): Y Reason patient was requesting visit (RFV/signs and symptoms/diagnosis) : Requesting a possible referral to be put in Person calling if other than patient: n/a Return call to if other than patient: n/a Best contact number: [phone] Thank you, Jessica Alves January 16, 2021 10:53 AM documented in this encounter [facility] 06-28-2020 Miscellaneous Notes Pt informed of the message below. Understanding voiced; no additional questions or concerns at this time. Ara Yepez CMA Called pt; no answer, left VM to return our call. Ara Yepez CMA ----- Message from Beverly Warner sent at 06/25/2020 3:34 PM EDT ----- Blood work is normal, recommend continuing with healthy lifestyle including monitoring diet, avoiding fried and fatty foods, eating whole grain foods and moderate exercises for 150 min a week or 5 times a week for 30 minutes advised. documented in this encounter [facility] Evaluation + Plan note No data available for this section [facility] Diagnosis Annual physical exam- Primary Routine general medical examination at a health care facility Encounter for screening mammogram for breast cancer Arthralgia, unspecified joint [facility] No data available for this section [facility] Summary Purpose Family History No Family History Records FoundNo Family History Records FoundNo Family History Records FoundNo Family History Records Found Advance Directives No Advanced Directives Records FoundNo Advanced Directives Records FoundNo Advanced Directives Records FoundNo Advanced Directives Records Found Instructions * Patient Instructions* Beverly Warner - 03/09/2020 1:23 PM EST Please get fasting blood work done. Fasting is for at least 12 hours and nothing to eat. You may drink plenty of water during that time. Our lab downstairs is open at 7am on mornings and 8am on Thursday mornings. We will print your lab slips for you to take with you today. We will call withresults or send them securely through [employer]. documented in this encounter History of Present Illness * Beverly Warner - 03/09/2020 1:01 PM EST Subjective Evy Alves is a 44 year old female who presents for a Physical. No issues voiced. Has a mammogram scheduled for the end of March. HEPATITIS C SCREENING due on 05/06/1991 HIV SCREENING due on 05/06/1991 She had a labrum tear in left hip s/p surgery in December 2019 and therefore has not been exercising, hence gained 17 lbs last year HPI Review of Systems Constitutional: Negative for fever, malaise/fatigue and weight loss. HENT: Negative for ear pain, hearing loss and tinnitus. Eyes: Negative for blurred vision and double vision. Respiratory: Negative for cough and shortness of breath. Cardiovascular: Negative for chest pain and palpitations. Gastrointestinal: Negative for abdominal pain, constipation, diarrhea, nausea and vomiting. Genitourinary: Negative for dysuria, frequency, hematuria and urgency. Musculoskeletal: Negative for falls and myalgias. Skin: Negative for rash. Neurological: Negative for dizziness, tingling, sensory change and weakness. Endo/Heme/Allergies: Negative for polydipsia. Psychiatric/Behavioral: Negative for depression. PAST MEDICAL HISTORY Diagnosis Date Arthritis Rothman's esophagus Diarrhea Fibromyalgia Osteoarthritis PAST SURGICAL HISTORY Procedure Laterality Date COLONOSCOP W/ OR W/O [facility] SPEC 1999 Colonoscopy EGD W/O OR W/BRUSH/WASH 1999 EGD HYSTERECTOMY 2014 LAPAROSCOPY W/BIOPSY PAST SURGICAL HISTORY OF rigth knee partial kneecap remeoved PAST SURGICAL HISTORY OF both feet, bunion and hammertoes PAST SURGICAL HISTORY OF right elbow PAST SURGICAL HISTORY OF right patella broken. removed pieces. PAST SURGICAL HISTORY OF 1989 bunion removal PAST SURGICAL HISTORY OF left elbow. arthoscopic REMOVAL GALLBLADDER 2012 REMOVAL OF KNEE CARTILAGE 1999 right knee REMOVAL OF TONSILS,<12 Y/O Tonsillectomy TOTAL KNEE REPLACEMENT left TOTAL KNEE REPLACEMENT 2015 right FAMILY HISTORY Problem Relation Age of Onset Heart disease Mother Diabetes Father Cancer Sister Cancer Brother rothman's Social History Tobacco Use Smoking status: Never Smoker Smokeless tobacco: Never Used Substance Use Topics Alcohol use: Yes Comment: sometimes Drug use: No Current Meds VITAMIN E ORAL Take by mouth once daily. organ concentrates (ADRENAL ORAL) Take by mouth. adrenalstability. CALCIUM CARB/MAGNESIUM CARB (CALCIUM & MAGNESIUM CARBONATES ORAL) Take by mouth. ascorbic acid(VITAMIN C 1,000 MG TAB) Take one(1) tablet daily. MULTIVITAMIN TAB Take one(1) tablet daily. benzonatate (TESSALON PERLES) 100 mg capsule Take 1 capsule by mouth three times daily as needed for Cough. topiramate (TOPAMAX) 100 mg tablet Take 100 mg by mouth as needed. omeprazole (PRILOSEC) 20 mg capsule Take 20 mg by mouth once daily. Objective BP 140/100 Pulse 73 Temp 36.6 C (97.9 F) (Tympanic) Ht 180.3 cm (5' 11 ) Wt 123.4 kg (272 lb) SpO2 97% BMI 37.94 kg/m Physical Exam Constitutional: She is oriented to person, place, and time and well-developed, well-nourished, and in no distress. No distress. HENT: Head: Normocephalic and atraumatic. Right Ear: External ear normal. Left Ear: External ear normal. Eyes: Pupils are equal, round, and reactive to light. Conjunctivae and EOM are normal. Left eye exhibits no discharge. No scleral icterus. Neck: No thyromegaly present. Cardiovascular: Normal rate, regular rhythm and normal heart sounds. No murmur heard. Pulmonary/Chest: Effort normal and breath sounds normal. No respiratory distress. She has no wheezes. She has no rales. Abdominal: Soft. Bowel sounds are normal. She exhibits no distension. There is no abdominal tenderness. There is no rebound. Musculoskeletal: General: Normal range of motion. Cervical back: Normal range of motion and neck supple. Neurological: She is alert and oriented to person, place, and time. No cranial nerve deficit. Gait normal. Coordination normal. Skin: Skin is warm and dry. She is not diaphoretic. No erythema. Psychiatric: Mood, memory and affect normal. ASSESSMENT/PLAN: 1. Annual physical exam - ICD9: V70.0, ICD10: Z00.00 (primary diagnosis) - Set up for mammogram, yearly mammogram recommended - Encouraged monthly Breast Self Exam - Recommended regular aerobic exercise. - Discussed need and benefit for weight loss. BMI 37.94 kg/(m^2) - Check CBC with diff, BMP, HbA1C and fasting lipid panel - Follow up for annual exam in one year. 2. Elevated blood pressure reading without diagnosis of hypertension - ICD9: 796.2, ICD10: R03.0 - Encouraged dietary sodium restriction/DASH diet - Recommended regular aerobic exercise. - Recommend home blood pressure monitoring, to bring results in on next visit - Discussed need and benefit for weight loss. - Goal of BP <130/80 3. Routine lab draw - ICD9: V72.60, ICD10: Z01.89 - CBC + DIFF - COMP METABOLIC PANEL 4. Screening for endocrine, nutritional, metabolic and immunity disorder - ICD9: V77.99, ICD10: Z13.29, Z13.21, Z13.228, Z13.0 - LIPID PANEL BASIC - HGB A1C - VITAMIN D 25 HYDROXY Beverly Warner MD documented in this encounter Assessments Diagnosis Annual physical exam- Primary Routine general medical examination at a health care facility Elevated blood pressure reading without diagnosis of hypertension Routine lab draw Laboratory examination ordered as part of a routine general medical examination Screening for endocrine, nutritional, metabolic and immunity disorder Screening for other and unspecified endocrine, nutritional, metabolic, and immunity disorders Reason for Referral Specialty Diagnoses / Procedures Referred By Contact Referred To Contact Gastroenterology / GASTROENTEROLOGY Diagnoses GERD without esophagitis Procedures CONSULT TO GASTROENTEROLOGY NEW PATIENT VISIT LEVEL 5 Beverly Warner MD 1948 [facility] [address] [place] [address] [facility] [address] [place] [address] Referral ID Status Reason Start Date Expiration Date V isits Requested Visits Authorized [id number] Closed PCP Requested Referral 01/16/2021 01/16/2022 1 1 Additional Source Comments INFORMATION SOURCE (unrecogn ized section and content) DATE CREATED AUTHOR AUTHOR'S ORGANIZ ATION 04/22/2019 [facility] DATE CREATED AUTHOR AUTHOR'S ORGANIZ ATION 05/28/2021 [facility] DATE CREATED AUTHOR AUTHOR'S ORGANIZ ATION 01/22/2022 [facility] ([place]) Source Comments (unrecognize d section and content) In the event this informatio n is protected by the Federal Confidentiality of Alcohol and Drug Abuse Patient Records regulations: The Federal rules restrict any use of the information to criminally investigate or prosecute any alcohol or drug abuse patient.[facility] the event this information is protected by the Federal Confidentiality of Alcohol and Drug Abuse Patient Records regulations: The Federal rules restrict any use of the information to criminally investigate or prosecute any alcohol or drug abuse patient.[facility] the event this information is protected by the Federal Confidentiality of Alcohol and Drug Abuse Patient Records regulations: The Federal rules restrict any use of the information to criminally investigate or prosecute any alcohol or drug abuse patient.[facility] the event this information is protected by the Federal Confidentiality of Alcohol and Drug Abuse Patient Records regulations: The Federal rules restrict any use of the information to criminally investigate or prosecute any alcohol or drug abuse patient.[facility] the event this information is protected by the Federal Confidentiality of Alcohol and Drug Abuse Patient Records regulations: The Federal rules restrict any use of the information to criminally investigate or prosecute any alcohol or drug abuse patient.[facility] the event this information is protected by the Federal Confidentiality of Alcohol and Drug Abuse Patient Records regulations: The Federal rules restrict any use of the information to criminally investigate or prosecute any alcohol or drug abuse patient.[facility] Reason for Visit (unrecogniz ed section and content) Reason Comments Results Reason Comments Referral Request Care Teams (unrecognized sec tion and content) On Air Director Relationship Specialty Start Date End Date Beverly Warner MD 1947 [facility] [address] [place] [address] PCP - General Internal Medicine 03/03/18 Srikanth Soliz [address] [place] [address] 04/09/17 Care Team (unrecognized sect ion and content) Care Team Personnel Name: SRIKANTH SOLIZ MD Position: P4 Physician - Primary Care Member Role: Primary Care Physician Address: Address: [address] [place], [place] [id number] [place] [address] Care Team Related Persons Name: MISHEL ALVES Address: Home [address] [place] [address] FOR RECORDS PERTAINING TO PATIENTS WHO ARE OR HAVE BEEN ENROLLED IN A CHEMICAL DEPENDENCY/SUBSTANCEABUSE PROGRAM, SOME INFORMATION MAY BE OMITTED. This clinical summary was aggregated from multiple sources. Caution should be exercised in using it in the provision of clinical care. This summary normalizes information from multiple sources, and as a consequence, information in this document may materially change the coding, format and clinical context of patient data. In addition, data may be omitted in some cases. CLINICAL DECISIONS SHOULD BE BASED ON THE PRIMARY CLINICAL RECORDS. [employer] [facility]. provides no warranty or guarantee of the accuracy or completeness of information in this document.
[2023-04-13 10:28] LABS: Absolute Lymphocyte Count 2.16 X10^3/uL (0.83-4.51); Absolute Neutrophil Count 2.5 X10^3/uL (2.0-7.7); Basophil# 0.05 X10^3/uL; Basophil% 0.9 % (0-1); Eosinophil# 0.19 X10^3/uL; Eosinophils% 3.6 % (0-5); Hematocrit 44.4 % (37-47); Hemoglobin 14.7 g/dL (12.0-15.0); Lymphocyte # 2.16 X10^3/ul (0.83-4.51); Lymphocyte % 40.6 % (19-41); Mean Corp Hgb Conc 33.1 g/dL (32-36); Mean Corpuscular Hgb 29.9 pg (27.0-32.0); Mean Corpuscular Volume 90.4 fL (81-99); Mean Platelet Vol. 10.9 fl (6.2-12.0); Monocyte# 0.39 X10^3/uL; Monocyte% 7.3 % (0-10); NRBC Flagged by Analyzer 0 % (0-5); Neutrophil # 2.52 X10^3/uL (2.7-7.7); Neutrophil % 47.4 % (47-70); Platelet Count 197 K/mm3 (150-450); RBC Distribution Width CV 12.1 % (11.6-14.6); Red Blood Count 4.91 M/mm3 (4.2-5.4); White Blood Count 5.3 K/mm3 (4.4-11.0)
[2023-04-13 12:26] LABS: ALB/GLOB Ratio 1.4 RATIO (0.9-2.4); AST(SGOT) 34 U/L (15-37); Alanine Aminotransfer ALT/SGPT 73 U/L (13-56); Albumin, Serum 4.2 g/dL (3.2-5.0); Alkaline Phosphatase 69 U/L (45-117); Anion Gap 7 (5-15); BUN 24 mg/dL (7-18); Calcium,Total 9.1 mg/dL (8.5-10.1); Chloride 108 mmol/L (98-107); Cholesterol 233 mg/dL (200); Creatinine, Serum 0.92 mg/dL (0.55-1.02); EST Glomerular Filtration Rate 68 mL/min (>60); Est Glom Filt Rate - Afr Amer 83 mL/min (>60); Glucose 114 mg/dL (74-106); High Density Lipoprotein 57 mg/dL; Protein, Total 7.2 g/dL (6.4-8.2); Sodium Level 144 mmol/L (136-145); Thyroid Stim Hormone (TSH) 1.82 uIU/mL (0.358-3.74); Triglycerides 173 mg/dL; Very Low Density Lipoprotein 35 mg/dL (5-40)
[2023-04-13 14:42] LABS: Hemoglobin A1c 5.6 % (3.8-5.6)
== END | disposition home or self-care (01) ==
PROVIDERS: PCP Family Medicine; Referring Provider Family Medicine; Visit Provider Family Medicine
DX: Z13.0 Encounter for screening for diseases of the blood and blood-forming organs and certain disorders involving the immune mechanism (principal); Z13.228 Encounter for screening for other metabolic disorders
CPT/HCPCS: 36415; 80053; 80061; 83036; 84443; 85025

== ENCOUNTER → 2024-03-01 | Outpatient (CLI) | payer OTHER, SELFPAY ==
--- NOTE | 2024-03-01 14:59 | BI_ITS ---
MAMMOGRAPHY - BILATERAL SCREENING 3-D TOMOSYNTHESIS REASON FOR EXAM: Female, 48 years old. breast cancer screening PERTINENT HISTORY: No significant family history. TECHNIQUE: 2-D mammograms and 3-D Tomosynthesis of the breast (s) were performed. CAD was performed. COMPARISON: 06/03/2022 FINDINGS: The breast composition is composed of scattered fibroglandular density. Scattered benign calcifications are seen. No dense spiculated masses or suspicious microcalcifications are identified. No architectural distortion is identified. There is no skin thickening or retraction. There has been no significant change since the prior study. BI/SCRN MAMM (CAD)W/ABDIFATAH BILAT IMPRESSION: No mammographic signs of malignancy. Routine yearly mammograms recommended. ASSESSMENT CATEGORY: BIRADS Category 1: Negative. A letter regarding these results will be sent to the patient by the facility within 30 days. FOLLOW UP RECOMMENDATION: Yearly follow up mammogram recommended. (A) Approximately 10% of breast cancers are not detected by mammography. A normal mammogram should not delay biopsy of a clinically suspicious abnormality. Electronically Signed: Gautam Naylor MD at 19:56 EST ,
== END | disposition home or self-care (01) ==
LOC: OPBI 14:59
PROVIDERS: PCP Family Medicine; Referring Provider Nurse Practitioner Women's Health; Visit Provider Nurse Practitioner Women's Health
DX: Z12.31 Encounter for screening mammogram for malignant neoplasm of breast (principal)
CPT/HCPCS: 77063; 77067

== ENCOUNTER → 2024-09-09 | Outpatient (CLI) | payer OTHER, SELFPAY ==
--- OUTSIDE RECORDS SUMMARY | 2024-09-09 07:32 | XMS RPT_ITS | CCD ---
Author Organization [facility] Care Team Providers Care Hostel Manager Name Role Phone SRIKANTH MORALES Unavailable Unavailable SRIKANTH MORALES Unavailable Unavailable SRIKANTH MORALES Unavailable Unavailable Srikanth Morales Unavailable [phone] John Warner Primary Care Provider Srikanth Morales Unavailable John Warner MD Primary Care Provider [phone] SRIKANTH MORALES MD Primary Care Physician SILVIO STILL PA-C Attending Unavailable MARTÍNEZ GONSALES, DR. SRIKANTH [facility]dez [facility] Samira Smith Attending Provider Friend, Dr. Bolanos Attending Provider Friend, Dr. Bolanos Other Provider DO Karey Urbina Primary Care Provider DO Karey Urbina Referring Provider Aleida [employer] COMPANYJeannette Attending Unavailable Jeannette Shin NP Referring Unavailable Amberly, Chalon Primary Care Unavailable Miesha Avila Attending Unavailable Amberly, Chalon Primary Care Unavailable Amberly, Chalon Referring Unavailable Allergies Allergy Classification Reported Allergen(s) Allergy Type Date of Onset Reaction(s) Facility Contrast Media (2 sources) Contrast media Substance Allergy 8 Hives [facility] Opioid Agonists (4 sources) Codeine Drug Allergy 8 Vomiting [facility] Work Phone: Penicillins (antibiotic) (2 sources) Penicillins Drug Allergy 8 [facility] Work Phone: (10 sources) Codeine Drug Allergy 8 Vomiting [facility] (4 sources) Contrast media Drug Allergy 8 Hives [facility] (7 sources) Penicillins; Translations: [Penicillins] Propensity to adverse reactions 8 Other [facility] (1 source) Codeine Drug Allergy 5 [facility] Repository Medications Current Medications Medication Drug Class(es) Dates Sig (Normalized) Sig (Original) Adrenalessence (2 sources) Start: 01-05-2014 take 1 tablet by mouth once daily Adrenalessence Active 1 TABLET PO DAILY January 05, 2014 12:00am Start: 01-05-2014 take 1 tablet by jemima th once daily Adrenalessence Active 1 TABLET PO DAILY January 05, 2014 1:00am calcium ascorbate 500 mg oral tablet (2 sources) Start: 04-26-2013 take 500 mg by mouth once daily Ascorbate Calcium (Vitamin C) Active 500 MG PO DAILY April 26, 2013 12:00am calcium carbonate 1500 mg / cholecalciferol 0.01 mg oral tablet (2 sources) Vitamin D Start: 04-26-2013 Calcium Carbonate-Vitamin D3 (Caltrate With Vitamin D3) 1 TAB tablet Active 1 TABLET PO DAILY@0800 April 26, 2013 12:00am Lactobacillus Combination No.4 (Probiotic) 3 billion cell capsule (2 sources) Start: 03-10-2022 take 3 capsules by mouth once daily Lactobacillus Combination No.4 (Probiotic) 3 billion cell capsule Active 3000 MMU CELLS PO DAILY March 10, 2022 12:00am administer with a meal Start: 03-10-2022 take 3 capsules by m outh once daily Lactobacillus Combination No.4 (Probiotic) 3 billion cell capsule Active 3000 MMU CELLS PO DAILY March 10, 2022 1:00am administer with a meal Multivitamin With Folic Acid (Thera) 1 TABLET tablet (2 sources) Start: 04-26-2013 take 1 tablet by mouth once daily Multivitamin With Folic Acid (Thera) 1 TABLET tablet Active 1 TABLET PO DAILY April 26, 2013 12:00am Start: 04-26-2013 take 1 tablet by jemima th once daily Multivitamin With Folic Acid (Thera) 1 TABLET tablet Active 1 TABLET PO DAILY April 26, 2013 1:00am [place]-3 Fatty Acids (2 sources) Start: 03-10-2022 take 1000 mg by mout h once daily [place]-3 Fatty Acids Active 1000 MG PO DAILY March 10, 2022 12:00am Start: 03-10-2022 take 1000 mg by mouth once ha ly [place]-3 Fatty Acids Active 1000 MG PO DAILY March 10, 2022 1:00am vitamin e 600 unt oral capsule (4 sources) Start: 02-26-2021 take 600 [IU] by mouth once daily Vitamin E Active 600 UNIT PO DAILY February 26, 2021 12:00am Start: 04-26-2013 End: 02-04-2021 take 400 [IU] by mouth once daily Vitamin E (Dl, Acetate) Discontinued 400 UNITS PO DAILY April 26, 2013 12:00am February 04, 2021 2:18pm Zinc (2 sources) Start: 02-26-2021 take 50 mg by mouth once daily Zinc Active 50 MG PO DAILY February 26, 2021 12:00am Start: 02-26-2021 take 50 mg by mouth once daily Zinc Active 50 MG PO DAILY February 26, 2021 1:00am Completed/Discontinued Medications Medication Drug Class(es) Dates Sig (Normalized) Sig (Original) acetaminophen 325 mg / oxyCODONE hydrochloride 5 mg oral tablet (2 sources) Opioid Agonist Start: 12-20-2014 End: 02-04-2021 take 1 tablet by mouth every four hours as needed Oxycodone-Acetamin ophen Discontinued 1 - 2 TABLET PO EVERY 4 HOURS NEEDED 90 December 19, 2014 11:00pm February 04, 2021 2:18pm ascorbic acid 1000 mg oral tablet (6 sources) Vitamin C Start: 05-28-2007 ascorbic acid(VITAMIN C 1,000 MG TAB) Take one(1) tablet daily. 0 05/28/2007 Active Comment on above: Take one(1) tablet d aily. aspirin 325 mg oral tablet (2 sources) Platelet Aggregation Inhibitor, Nonsteroidal Anti-inflammatory Drug Start: 12-20-2014 End: 02-04-2021 take 325 mg by mouth twice daily at mealtime Aspirin Discontinued 325 MG PO TWICE DAILY WITH MEALS 60 December 19, 2014 11:00pm February 04, 2021 2:20pm benzonatate 100 mg oral capsule (6 sources) Non-narcotic Antitussive Start: 04-22-2019 take 1 capsule by mouth every eight hours as needed for cough and cough benzonatate (TESSALON PERLES) 100 mg capsule Indications: Cough Take 1 capsule by mouth three times daily as needed for Cough. 21 capsule 0 04/22/2019 Active Comment on above: Take 1 capsule by [facility] three times daily as needed for Cough. Biocleanse (2 sources) Start: 12-07-2014 End: 02-04-2021 take 2 tablets by mouth once daily Biocleanse Discontinued 2 TABLET PO DAILY December 06, 2014 11:00pm February 04, 2021 2:20pm Start: 12-07-2014 End: 02-04-2021 take 2 tablets by mouth once daily Biocleanse Discontinued 2 TABLET PO DAILY December 07, 2014 12:00am February 04, 2021 3:20pm Black Cohosh Root Extract (2 sources) Start: 01-05-2014 End: 02-04-2021 take 80 mg by mouth once daily [place] Root Extract Discontinued 80 MG PO DAILY January 05, 2014 12:00am February 04, 2021 2:20pm Start: 01-05-2014 End: 02-04-2021 take 80 mg by mouth once daily [place] Root Extra ct Discontinued 80 MG PO DAILY January 05, 2014 1:00am February 04, 2021 3:20pm CALCIUM CARB/MAGNESIUM CARB (CALCIUM & MAGNESIUM CARBONATES ORAL) (6 sources) CALCIUM CARB/MAGNESIUM CARB (CALCIUM & MAGNESIUM CARBONATES ORAL) Take by mouth. 0 Active Comment on above: Take by mouth. famotidine 40 mg oral tablet (5 sources) Histamine-2 Receptor Antagonist Start: 02-22-20 End: 03-10-19 take 40 mg by mouth at bedtime Famotidine Discontinued 40 MG PO AT BEDTIME March 20, 2021 12:12pm March 10, 2022 2:11pm Comment on above: Take 40 mg by mouth daily at bedtime. ibuprofen 600 mg oral tablet (2 sources) Nonsteroidal Anti-inflammatory Drug Start: 01-06-20 14 End: 02-05-20 take 600 mg by mouth every six hours Ibuprofen Discontinued 600 MG PO EVERY 6 HOURS January 05, 2014 11:31am February 04, 2021 2:19pm Mrjyj-Ga-6-Dha-Epa-Lucinda spho-Ast (2 sources) Start: 12-08-19 End: 02-05-20 Mtmss-Ra-1-Dha-Epa-Ph ospho-Ast Discontinued 2 EACH PO DAILY December 06, 2014 11:00pm February 04, 2021 2:20pm Start: 12-07-2014 End: 02-04-2021 Fczbw-Rf-1-Asl-Yay-Fuoogeb-A st Discontinued 2 EACH PO DAILY December 07, 2014 12:00am February 04, 2021 3:20pm lysine 500 mg oral tablet (2 sources) Start: 02-04-2021 End: 03-10-2022 take 500 mg by mouth once daily Lysine Discontinued 500 MG PO DAILY February 04, 2021 12:00am March 10, 2022 2:12pm MULTIVITAMIN TAB (6 sources) Start: 05-28-2007 MULTIVITAMIN T AB Take one(1) tablet daily. 0 05/28/2007 Active Comment on above: Take one(1) tablet d aily. naproxen 500 mg oral tablet (2 sources) Nonsteroidal Anti-inflammatory Drug Start: 01-05-2014 End: 02-04-2021 take 1 tablet by mouth twice daily Naproxen (Naprosyn) 500 MG tablet Discontinued 500 MG PO TWICE A DAY January 05, 2014 12:00am February 04, 2021 2:18pm omeprazole 40 mg delayed release oral capsule (14 sources) Proton Pump Inhibitor Start: 02-04-2021 End: 06-11-2022 take 40 mg by mouth once daily Omeprazole Discontinued 40 MG PO DAILY March 20, 2021 12:11pm June 11, 2022 3:18pm Start: 04-26-2013 End: 02-04-2021 take 20 mg by mouth once daily Omeprazole Discontinued 20 MG PO DAILY April 26, 2013 12:00am February 04, 2021 2:18pm Comment on above: Take 20 mg by mouth once daily. organ concentrates (ADRENAL ORAL) (6 sources) organ concentrat es (ADRENAL ORAL) Take by mouth. adrenalstability. 0 Active Comment on above: Take by mouth. adr enalstability. 72 hr scopolamine 0.0139 mg/hr transdermal system (2 sources) Anticholinergic Start: 015 End: 021 Scopolamine Base Discontinued 1 PATCH TRANSDERM. Every 3 Days December 19, 2014 11:00pm February 04, 2021 2:20pm sucralfate 1000 mg oral tablet (2 sources) Aluminum Complex Start: 022 End: 023 take 1 tablet by mouth three times daily 1 hour(s) before mealtime Sucralfate (Carafate) 1 gram tablet Discontinued 1 GM PO before meals March 13, 2021 12:00am March 10, 2022 2:12pm take three times a day, one hour before meals on an empty stomach for thirty days. topiramate 100 mg oral tablet (6 sources) topiramate (TOPAMAX) 100 mg tablet Take 100 mg by mouth as needed. 0 Active Comment on above: Take 100 mg by mouth as needed. traMADol hydrochloride 50 mg oral tablet (4 sources) Opioid Agonist Start: 014 End: take 50 mg by mouth every six hours as needed Tramadol Discontinued 50 MG PO EVERY 6 HOURS NEEDED December 19, 2014 11:00pm February 04, 2021 2:18pm VITAMIN E ORAL (6 sources) VITAMIN E ORAL T [place] by mouth once daily. 0 Active Comment on above: Take by mouth once d aily. Problems Active Problems Problem Classification Problem Date Documented Date Episodic/Chronic Abdominal pain (2 sources) Pain in pelvis; Translations: [Pelvic and perineal pain] 02-04-2021 Episodic Endometriosis (2 sources) Endometriosis (clinical); Translations: [Endometriosis, unspecified] 02-04-2021 Chronic Esophageal disorders (13 sources) Gastroesophageal reflux disease without esophagitis; Translations: [Gastro-esophageal reflux disease without esophagitis] Onset: 08-26-2015 05-08-2017 Chronic Menstrual disorders (2 sources) Menorrhagia; Translations: [Excessive and frequent menstruation with regular cycle] 02-04-2021 Chronic Other circulatory disease (1 source) Elevated blood-pressure reading without diagnosis of hypertension; Translations: [Elevated blood pressure reading without diagnosis of hypertension] Episodic Other non-traumatic joint disorders (1 source) Joint pain; Translations: [Pain in unspecified joint] Episodic Other screening for suspected conditions (not mental disorders or infectious disease) (5 sources) Patient encounter status; Translations: [Encounter for screening mammogram for malignant neoplasm of breast] Onset: 05-27-2024 Episodic Unclassified (1 source) Unknown / UNK(Unknown) Onset: 09-10-2016 Unclassified (3 sources) Patient encounter status; Translations: [Routine lab draw] Past or Other Problems Problem Classification Problem Date Documented Da te Episodic/Chronic Unclassified (1 source) XRAY OF SPINE, T14.8,M54.5 Onset: 09-10-2016 Results Test Name Value Interpretation Reference Range Facility Facilities Locator Office Visit Reporton 05-27-2024 Facilities Locator Office Visit Report 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 Is patient in pain?: No Allergies codeine Adverse Reaction (Verified 05/27/24 08:05) Other Penicillins Adverse Reaction (Verified 05/27/24 08:05) Other Medications ???Medication ???Instructions ???Recorded ???Confirmed ???Type ascorbate calcium (vitamin C) 500 500 mg PO DAILY 04/26/13 05/27/24 History mg tablet calcium 600 mg (as 1 tab PO DAILY@0800 04/26/1305/27 History carbonate)-vitamin D3 20 mcg (800 unit) tablet (Caltrate with Vitamin D3) multivitamin with folic acid 400 1 tab PO DAILY 04/26/13 05/27/24 H istory mcg tablet (Thera) Adrenalessence 1 tab PO DAILY 01/05/14 05/27/24 H istory vitamin E 600 unit capsule 600 unit PO DAILY 02/26/21 5 History zinc 50 mg capsule 50 mg PO DAILY 02/26/21 05/27/24 H istory lactobacillus combination no.4 3 3,000 mmu cells PO DAILY 03/10/22 05/27/24 History billion cell capsule (Probiotic) omega-3 fatty acids 1,000 mg 1,000 mg PO DAILY 03/10/22 5 History capsule omeprazole 40 mg capsule,delayed 40 mg PO DAILY #90 caps 06/23/23 0 05/27/24 Rx release Control Method: hyst PFSH Medical History Wears glasses Post-menopausal History of echocardiogram Alcohol use Arthritis Migraine headache History of IBS Gastric reflux Non-smoker Surgical History Hx of colonoscopy History of esophagogastroduodenoscopy (EGD) Hx of tonsillectomy Tear of labium Hx of cholecystectomy H/O elbow surgery History of foot surgery History of bunionectomy Total knee replacement status H/O: hysterectomy Family History Sister Breast cancer, Onset Age: 40 40's Aunt Breast cancer, Onset Age: 35 Aunt Breast cancer, Onset Age: 95 Mother Endometriosis Social History Smoking Status: Never smoker alcohol intake: current substance use type: does not use caffeine: Yes seatbelt use: always additional 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 She is interested in weight management program; she would like to lose approx 75 lbs at most. 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 Last PAP: prior to hyst. History of abnormal PAP: none Last mammogram: 2023; normal History of abnormal mammogram: no Colon cancer screenin; normal Other preventative health care screenings: Eric Gaming; PCP. Female Reproductive History Questions: metorrhagia: No, sexually active: Yes, dyspareunia: No and PCB: No ROS Const Constitutional: Denies chills, fatigue, fever(s), headache(s) or weight loss Eyes Eyes: Denies change in vision ENT ENT: Denies dizziness Cardio Card: Denies palpitations Resp Resp: Denies cough GI GI: Denies abdominal pain, constipation or nausea : Denies difficulty voiding, dysuria, hematuria, nipple discharge, pelvic pain, prolapse symptoms, urinary incontinence, vaginal discharge, vaginal dryness, vaginal odor or vaginal pruritus Skin Skin/Breast: Denies alopecia, rash, breast mass, breast pain, breast skin changes or nipple discharge Neuro Neuro: Denies dizziness Psych Psych: Denies anxiety or depression Endo Endo: Denies cold intolerance, excessive sweating or heat intolerance Exam Const General: cooperative, healthy appearing, comfortable, no acute distress, well groomed and well hydrated Nutritional Appearance: well nourished Orientation: alert, awake and oriented x3 HENMT Head: normal to inspection and normocephalic Ears: hearing grossly normal bilaterally and external ears normal Nose: external nose normal Face and sinus: normal facial exam Eyes General: appearance normal, both eyes and all related structures Neck Neck: normal visual inspection, full ROM and no lymphadenopathy Thyroid: thyroid normal Chest Chest palpation inspection: normal inspection of the ch (more content not included)... Normal [facility] SCRN MAMM (CAD)W/ABDIFATAH BILATo n 03-01-2024 SCRN MAMM (CAD)W/ABDIFATAH BILAT [facility] Imaging Services [address] [place] [address] [id number] SCRN MAMM (CAD)W/ABDIFATAH BILAT MR#: [id number] Acct: [id number] Name: EVY BAILON ALTHEA Rep #: [id number] : 1975 F 48 From: Gautam Naylor MD PCP: Dr. Eric Gaming MD Status: [facility] Study: SCRN MAMM (CAD)W/ABDIFATAH BILAT Date of Exam: 02/01 03/25 Exam# [id number] Ordering Dr: Jeannette Shin NP [employer] -C :[id number] MAMMOGRAPHY - BILATERAL SCREENING 3-D TOMOSYNTHESIS REASON FOR EXAM: Female, 48 years old. breast cancer screening PERTINENT HISTORY: No significant family history. TECHNIQUE: 2-D mammograms and 3-D Tomosynthesis of the breast (s) were performed. CAD was performed. COMPARISON: 06/03/2022 FINDINGS: The breast composition is composed of scattered fibroglandular density. Scattered benign calcifications are seen. No dense spiculated masses or suspicious microcalcifications are identified. No architectural distortion is identified. There is no skin thickening or retraction. There has been no significant change since the prior study. BI/SCRN MAMM (CAD)W/ABDIFATAH BILAT IMPRESSION: No mammographic signs of malignancy. Routine yearly mammograms recommended. ASSESSMENT CATEGORY: BIRADS Category 1: Negative. A letter regarding these results will be sent to the patient by the facility within 30 days. FOLLOW UP RECOMMENDATION: Yearly follow up mammogram recommended. (A) Approximately 10% of breast cancers are not detected by mammography. A normal mammogram should not delay biopsy of a clinically suspicious abnormality. Electronically Signed: Gautam Naylor MD at 19:56 EST , CC: HERMILO Shin; Dr. Eric Gaming MD Combination Presser: Signed Normal [facility] Absolute lymphocyte countOrd ered By: Karey Urbina on 04-13-2023 Lymphocytes Auto (Unsp spec) [#/Vol] 2.16 10*3/uL 0.83-4.51 [facility] Automated lymphocyte count a s percentage of total leukocytesOrdered By: Karey Urbina on 04-13-2023 Lymphocytes/100 WBC Auto (Unsp spec) 40.6 % 19-41 [facility] Basophil percentageOrdered B y: Karey Urbina on 04-13-2023 Basophils/100 WBC (Bld) 0.9 % 0-1 [facility] Bilirubin [Mass/Vol] 0.60 mg/dL 0.20-1.00 [facility] Comment on above: For patients on eltr ombopag therapy, use of Dimension [place] TBIL is not recommended. Chloride [Moles/Vol] 108 mmol/L 98-107 [facility] Cholesterol [Mass/Vol] 233 mg/dL <200 [facility] Comment on above: <200 mg/dL Desirable 200-240 mg/dL Borderline >240 mg/dL High Risk Eosinophils/100 WBC (Bld) 3.6 % 0-5 [facility] Glucose [Mass/Vol] 114 mg/dL 74-106 [facility] Comment on above: Fasting Glucose resu lt from 100 to 125 mg/dL suggests IMPAIRED HOMEOSTASIS per A.D.A. criteria. Hemoglobin (Bld) [Mass/Vol] 14.7 g/dL 12.0-15.0 [facility] Monocytes/100 WBC (Bld) 7.3 % 0-10 [facility] Neutrophils (Bld) [#/Vol] 2.5 10*3/uL 2.0-7.7 [facility] Neutrophils/100 WBC (Bld) 47.4 % 47-70 [facility] Potassium [Moles/Vol] 4.0 mmol/L 3.5-5.1 [facility] Protein [Mass/Vol] 7.2 g/dL 6.4-8.2 [facility] Sodium [Moles/Vol] 144 mmol/L 136-145 [facility] Triglyceride [Mass/Vol] 173 mg/dL <199 [facility] Comment on above: The drugs N-Acetylcy steine and Metamizole may falsely depress this assay.Serum Triglycerides Reference Interval Normal <150 mg/dL Borderline high 150 - 199 mg/dL High 200 - 499 mg/dL Very High > or = 500 mg/dL WBC (Bld) [#/Vol] 5.3 10*3/uL 4.4-11.0 [facility] Determination of erythrocyte mean corpuscular volume (MCV)Ordered By: Karey Urbina on 04-13-2023 MCV (RBC) [Entitic vol] 90.4 fL 81-99 [facility] Erythrocyte distribution wid th ratioOrdered By: Karey Urbina on 04-13-2023 Erythrocyte distribution width (RBC) [Ratio] 12.1 % 11.6-14.6 [facility] Erythrocyte distribution wid th standard deviationOrdered By: Karey Urbina on 04-13-2023 Erythrocyte distribution width (RBC) [Entitic vol] 40.0 fL 35.1-43.9 [facility] Hematocrit Auto (Bld) [Volum e fraction]Ordered By: Karey Urbina on 04-13-2023 Hematocrit (Bld) [Volume fraction] 44.4 % 37-47 [facility] Immature granulocytes/100 WB C Auto (Bld)Ordered By: Karey Urbina on 04-13-2023 Immature granulocytes/100 WBC (Bld) 0.200 % 0.0-0.9 [facility] Comment on above: IG% - Immature Granu locytes (promyelocytes, myelocytes and metamyelocytes) > 1% indicates that a LEFT SHIFT is Present. Laboratory - Chemistry and C hemistry - challengeOrdered By: Karey Urbina on 04-13-2023 Albumin/Globulin [Mass ratio] 1.4 {ratio} 0.9-2.4 [facility] ALP [Catalytic activity/Vol] 69 U/L 45-117 [facility] ALT [Catalytic activity/Vol] 73 U/L 13-56 [facility] Cholesterol in HDL [Mass/Vol] 57 mg/dL >40 [facility] Comment on above: The drugs N-Acetylcy steine and Metamizole may falsely depress this assay. Reference Range HDL <40 mg/dL Low HDL Cholesterol HDL >or= 60 mg/dL High HDL Cholesterol Cholesterol in LDL [Mass/Vol] 141 mg/dL 0-130 [facility] CO2 [Moles/Vol] 29.0 mmol/L 21.0-32.0 [facility] Globulin (S) [Mass/Vol] 3.0 g/dL 2.2-4.2 [facility] Urea nitrogen/Creatinine [Mass ratio] 26.0 mg/mg 10-20 [facility] Laboratory - Hematology and Cell countsOrdered By: Karey Urbina on 04-13-2023 MCH (RBC) [Entitic mass] 29.9 pg 27.0-32.0 [facility] MCHC (RBC) [Mass/Vol] 33.1 g/dL 32-36 [facility] Nucleated RBC/100 WBC (Bld) [Ratio] 0 % 0-5 [facility] Platelet mean volume (Bld) [Entitic vol] 10.9 fL 6.2-12.0 [facility] Platelets (Bld) [#/Vol] 197 10*3/uL 150-450 [facility] No Panel InformationOrdered By: Karey Urbina on 04-13-2023 Estimated GFR (MDRD) Amer 83 mL/min >60 [facility] Comment on above: GFR Calc Estimated GFR (MDRD) Non-Af Amer 68 mL/min >60 [facility] Comment on above: Non- GFR Calc VLDL Cholesterol 35 mg/dL 5-40 [facility] RBC Auto (Bld) [#/Vol]Ordere d By: Karey Urbina on 04-13-2023 RBC (Bld) [#/Vol] 4.91 10*6/uL 4.2-5.4 [facility] Serum or plasma calcium shimon urement (mass/volume)Ordered By: Karey Urbina on 04-13-2023 Calcium [Mass/Vol] 9.1 mg/dL 8.5-10.1 [facility] Serum or plasma creatinine m easurement (mass/volume)Ordered By: Karey Urbina on 04-13-2023 Creatinine [Mass/Vol] 0.92 mg/dL 0.55-1.02 [facility] Comment on above: The validity of the calculated GFR & GFRAA in patients over 70 years has not been determined. Clinical correlation is essential. Serum or plasma thyroid stim ulating hormone (TSH) measurement (units/volume)Ordered By: Karey Urbina on 04-13-2023 TSH Qn 1.82 uIU/mL 0.358-3.74 [facility] Serum or plasma urea nitroge n measurement (mass/volume)Ordered By: Karey Urbina on 04-13-2023 Urea nitrogen [Mass/Vol] 24 mg/dL 7-18 [facility] Thin prep Papanicolaou smear with manual screeningOrdered By: Karey Urbina on 04-13-2023 Thin prep Papanicolaou smear with manual screening 4.2 g/dL 3.2-5.0 [facility] Thin prep Papanicolaou smear with manual screening 34 U/L 15-37 [facility] [facility] Thin prep Papanicolaou smear with manual screening 7 5-15 [facility] Whole blood hemoglobin A1c/t otal hemoglobin ratio (mass fraction)Ordered By: Karey Urbina on 04-13-2023 HbA1c (Bld) [Mass fraction] 5.6 % 3.8-5.6 [facility] Comment on above: Normal < 5.7 % Predi abetic 5.7 - 6.4 % Diabetic >or= 6.5 % Please note range changes. MRI ELBOW W/O CONTRAST RIGHT on 01-10-2022 MRI ELBOW W/O CONTRAST RIGHT ORIGINAL EXAMINATION: MRI OF THE RIGHT ELBOW [...] Date: 01/10/2022 12:53:13 PM Ordering Provider: [facility]ILVIO [facility] ([place] [place] [facility] CNPN Telephone (AGGPC) VEY BAILON ([id number]) 1975 F Date Time Provider Department 05/27/21 JOHN WARNER During your visit today, we recorded the following information about you: Brandie Lanier MA 05/27/2021 11:17 AM Signed ----- Message from John Warner MD sent at 05/27/2021 11:13 AM EDT ----- There is worsening of cholesterol levels, consider starting a cholesterol medication. She should also continue to work on her diet and also exercise regularly Brandie Lanier MA 05/27/2021 11:20 AM Signed Patient advised of message AND is asking if there is something natural or over the counter she can take for her cholesterol? AND is asking about her RA level, does she have this? How was her lab results compared to her last results from 2020. Please advise ANDREA Oneill MD 05/27/2021 11:23 AM Signed Her rheumatoid factor is negative. LDL cholesterol has worsened from 121 last year to 168 this year. She can try to control LDL by avoiding refined, packaged food material, avoid fried and fatty foods. Include more fresh fruits and vegetables and exercising regularly. We can repeat her levels in 6 months, if still elevated can consider statins Brandie Lanier MA 05/27/2021 11:30 AM Signed Patient advised of message. ANDREA Oneill MA 05/27/2021 11:30 AM Signed She would like to wait and see how her levels are in 6 months Brandie Lanier MA Allergies As of Date: 05/27/2021 Noted Allergy Reaction CODEINE 05/27/2007 CODEINE 05/08/2017 11 - Vomiting PENICILLINS 05/27/2007 Comments: yeast infection RED DYE 05/08/2017 4 - Hives Date Reviewed: 05/03/2021 Reviewed by: John Warner MD - Fully Assessed Reason for Visit: Results [95] Prescriptions as of 05/27/2021 - famotidine (PEPCID) 40 mg tablet Take 40 mg by mouth daily at bedtime. - benzonatate (TESSALON PERLES) 100 mg capsule Take 1 capsule by mouth three times daily as needed for Cough. - topiramate (TOPAMAX) 100 mg tablet Take 100 mg by mouth as needed. - VITAMIN E ORAL Take by mouth once daily. - organ concentrates (ADRENAL ORAL) Take by mouth. adrenalstability. - omeprazole (PRILOSEC) 20 mg capsule Take 20 mg by mouth once daily. - CALCIUM CARB/MAGNESIUM CARB (CALCIUM AND MAGNESIUM CARBONATES ORAL) Take by mouth. - ascorbic acid(VITAMIN C 1,000 MG TAB) Take one(1) tablet daily. - MULTIVITAMIN TAB Take one(1) tablet daily. Problem List As Of Date 05/27/2021 Noted Resolved Gastro-esophageal reflux disease without esopha*08/26/2015 Encounter Status:Closed by BRANDIE LANIER on 05/27/21 Normal [facility] CBC W Auto Differential pane l (Bld)on 05-17-2021 Basophils (Bld) [#/Vol] 0.04 10*3/uL Normal <0.11 [facility] Comment on above: Order Comment: Speci men Type: BLOOD SPECIMEN Ordering Facility: [facility] Address: [address] [place] [address] Performed By: #### 5 7021-8 #### [facility] CLIA [id number] [address] [place] Basophils/100 WBC (Bld) 0.8 % Normal [facility] Comment on above: Order Comment: Speci men Type: BLOOD SPECIMEN Ordering Facility: [facility] Address: [address] [place] [address] Performed By: #### 5 7021-8 #### [facility] CLIA [id number] [address] [place] Differential cell count method Nom (Bld) Auto Normal [facility] Comment on above: Order Comment: Speci men Type: BLOOD SPECIMEN Ordering Facility: [facility] Address: [address] [address] Performed By: #### 5 7021-8 #### [facility] CLIA [id number] [address] [place] [address] [place] Eosinophils (Bld) [#/Vol] 0.18 10*3/uL Normal <0.46 [facility] Comment on above: Order Comment: Speci men Type: BLOOD SPECIMEN Ordering Facility: [facility] Address: [facility] [address] Performed By: #### 5 7021-8 #### [facility] CLIA [id number] [address] [place] Eosinophils/100 WBC (Bld) 3.6 % Normal [facility] Comment on above: Order Comment: Speci men Type: BLOOD SPECIMEN Ordering Facility: [facility] Address: [facility] [address] [address] Performed By: #### 5 7021-8 #### [facility] CLIA [id number] [address] Erythrocyte distribution width (RBC) [Ratio] 12.3 % Normal 11.5-15.0 [facility] Comment on above: Order Comment: Speci men Type: BLOOD SPECIMEN Ordering Facility: [facility] Address: [address] [place] [address] Performed By: #### 5 7021-8 #### [facility] CLIA [id number] [address] Hematocrit (Bld) [Volume fraction] 43.4 % Normal 36.0-46.0 [facility] Comment on above: Order Comment: Speci men Type: BLOOD SPECIMEN Ordering Facility: [facility] Address: [address] [place] [address] Performed By: #### 5 7021-8 #### [facility] CLIA [id number] [address] Hemoglobin (Bld) [Mass/Vol] 14.2 g/dL Normal 11.5-15.5 [facility] Comment on above: Order Comment: Speci men Type: BLOOD SPECIMEN Ordering Facility: [facility] Address: [address] [address] Performed By: #### 5 7021-8 #### [facility] CLIA [id number] [address] IMMATURE GRAN % 0.2 % Normal [facility] Comment on above: Order Comment: Speci men Type: BLOOD SPECIMEN Ordering Facility: [facility] Address: [address] [place] [address] Performed By: #### 5 7021-8 #### [facility] CLIA [id number] [address] IMMATURE GRAN ABS <0.03 Normal <0.10 [facility] Comment on above: Order Comment: Speci men Type: BLOOD SPECIMEN Ordering Facility: [facility] Address: [address] [place] [address] Performed By: #### 5 7021-8 #### [facility] CLIA [id number] [address] Lymphocytes (Bld) [#/Vol] 2.10 10*3/uL Normal 1.00-4.00 [facility] Comment on above: Order Comment: Speci men Type: BLOOD SPECIMEN Ordering Facility: [facility] Address: [address] [place] [address] Performed By: #### 5 7021-8 #### [facility] CLIA [id number] [address] Lymphocytes/100 WBC (Bld) 41.6 % Normal [facility] Comment on above: Order Comment: Speci men Type: BLOOD SPECIMEN Ordering Facility: [facility] Address: [address] [place] [address] Performed By: #### 5 7021-8 #### [facility] CLIA [id number] [address] MCH (RBC) [Entitic mass] 29.9 pg Normal 26.0-34.0 [facility] Comment on above: Order Comment: Speci men Type: BLOOD SPECIMEN Ordering Facility: [facility] Address: [address] [place] [address] Performed By: #### 5 7021-8 #### [facility] CLIA [id number] [address] MCHC (RBC) [Mass/Vol] 32.7 g/dL Normal 30.5-36.0 [facility] Comment on above: Order Comment: Speci men Type: BLOOD SPECIMEN Ordering Facility: [facility] Address: [address] [place] [address] Performed By: #### 5 7021-8 #### [facility] CLIA [id number] [address] [place] MCV (RBC) [Entitic vol] 91.4 fL Normal 80.0-100.0 [facility] Comment on above: Order Comment: Speci men Type: BLOOD SPECIMEN Ordering Facility: [facility] Address: [address] [place] [address] Performed By: #### 5 7021-8 #### [facility] CLIA [id number] [address] [place] Monocytes (Bld) [#/Vol] 0.43 10*3/uL Normal <0.87 [facility] Comment on above: Order Comment: Speci men Type: BLOOD SPECIMEN Ordering Facility: [facility] Address: [address] [place] [address] Performed By: #### 5 7021-8 #### [facility] CLIA [id number] [address] Monocytes/100 WBC (Bld) 8.5 % Normal [facility] Comment on above: Order Comment: Speci men Type: BLOOD SPECIMEN Ordering Facility: [facility] Address: [address] [place] [address] Performed By: #### 5 7021-8 #### [facility] CLIA [id number] [address] [place] Neutrophils (Bld) [#/Vol] 2.29 10*3/uL Normal 1.45-7.50 [facility] Comment on above: Order Comment: Speci men Type: BLOOD SPECIMEN Ordering Facility: [facility] Address: [address] [place] [address] Performed By: #### 5 7021-8 #### [facility] CLIA [id number] [address] [place] Neutrophils/100 WBC (Bld) 45.3 % Normal [facility] Comment on above: Order Comment: Speci men Type: BLOOD SPECIMEN Ordering Facility: [facility] Address: [address] [address] Performed By: #### 5 7021-8 #### [facility] CLIA [id number] [address] Nucleated RBC (Bld) [#/Vol] 10*3/uL Normal <0.01 [facility] Comment on above: Order Comment: Speci men Type: BLOOD SPECIMEN Ordering Facility: [facility] Address: [address] [address] Performed By: #### 5 7021-8 #### [facility] CLIA [id number] [address] Nucleated RBC/100 WBC (Bld) [Ratio] 0.0 /100 WBC Normal [facility] Comment on above: Order Comment: Speci men Type: BLOOD SPECIMEN Ordering Facility: [facility] Address: [address] [address] Performed By: #### 5 7021-8 #### [facility] CLIA [id number] [address] [place] Platelet mean volume (Bld) [Entitic vol] 11.5 fL Normal 9.0-12.7 [facility] Comment on above: Order Comment: Speci men Type: BLOOD SPECIMEN Ordering Facility: [facility] Address: [address] [address] Performed By: #### 5 7021-8 #### [facility] CLIA [id number] [address] [place] Platelets (Bld) [#/Vol] 200 10*3/uL Normal 150-400 [facility] Comment on above: Order Comment: Speci men Type: BLOOD SPECIMEN Ordering Facility: [facility] Address: [address] [address] Performed By: #### 5 7021-8 #### [facility] CLIA [id number] [address] [place] RBC (Bld) [#/Vol] 4.75 10*6/uL Normal 3.90-5.20 [facility] Comment on above: Order Comment: Speci men Type: BLOOD SPECIMEN Ordering Facility: [facility] Address: [address] [place] [address] Performed By: #### 5 7021-8 #### [facility] CLIA [id number] [address] WBC (Bld) [#/Vol] 5.05 10*3/uL Normal 3.70-11.00 [facility] Comment on above: Order Comment: Speci men Type: BLOOD SPECIMEN Ordering Facility: [facility] Address: [address] [place] [address] Performed By: #### 5 7021-8 #### [facility] CLIA [id number] [address] Comprehensive metabolic 2000 panelon 05-17-2021 Albumin [Mass/Vol] 4.5 g/dL Normal 3.9-4.9 [facility] Comment on above: Order Comment: Speci men Type: BLOOD SPECIMEN Ordering Facility: [facility] Address: [address] [place] [address] Performed By: #### 2 4323-8, LIPB #### [facility] CLIA [id number] [address] ALP [Catalytic activity/Vol] 63 U/L Normal 34-123 [facility] Comment on above: Order Comment: Speci men Type: BLOOD SPECIMEN Ordering Facility: [facility] Address: [address] [place] [address] Performed By: #### 2 4323-8, LIPB #### [facility] CLIA [id number] [address] ALT With P-5'-P [Catalytic activity/Vol] 39 U/L High 7-38 [facility] Comment on above: Order Comment: Speci men Type: BLOOD SPECIMEN Ordering Facility: [facility] Address: [address] [place] [address] Performed By: #### 2 4323-8, LIPB #### [facility] CLIA [id number] [address] [place] Anion gap [Moles/Vol] 12 mmol/L Normal 9-18 [facility] Comment on above: Order Comment: Speci men Type: BLOOD SPECIMEN Ordering Facility: [facility] Address: [address] [place] [address] Performed By: #### 2 4323-8, LIPB #### [facility] CLIA [id number] [address] [place] AST With P-5'-P [Catalytic activity/Vol] 32 U/L Normal 13-35 [facility] Comment on above: Order Comment: Speci men Type: BLOOD SPECIMEN Ordering Facility: [facility] Address: [address] [place] [address] Performed By: #### 2 4323-8, LIPB #### [facility] CLIA [id number] [address] [place] Bilirubin [Mass/Vol] 0.5 mg/dL Normal 0.2-1.3 [facility] Comment on above: Order Comment: Speci men Type: BLOOD SPECIMEN Ordering Facility: [facility] Address: [address] [place] [address] Performed By: #### 2 4323-8, LIPB #### [facility] CLIA [id number] [address] [place] Calcium [Mass/Vol] 9.6 mg/dL Normal 8.5-10.2 [facility] Comment on above: Order Comment: Speci men Type: BLOOD SPECIMEN Ordering Facility: [facility] Address: [address] [place] [address] Performed By: #### 2 4323-8, LIPB #### [facility] CLIA [id number] [address] [place] Chloride [Moles/Vol] 101 mmol/L Normal 97-105 [facility] Comment on above: Order Comment: Speci men Type: BLOOD SPECIMEN Ordering Facility: [facility] Address: [address] [place] [address] Performed By: #### 2 4323-8, LIPB #### [facility] CLIA [id number] [address] [place] CO2 [Moles/Vol] 30 mmol/L Normal 22-30 [facility] Comment on above: Order Comment: Speci men Type: BLOOD SPECIMEN Ordering Facility: [facility] Address: [address] [place] [address] Performed By: #### 2 4323-8, LIPB #### [facility] CLIA [id number] [address] Creatinine [Mass/Vol] 0.91 mg/dL Normal 0.58-0.96 [facility] Comment on above: Order Comment: Speci men Type: BLOOD SPECIMEN Ordering Facility: [facility] Address: [address] [place] [address] Performed By: #### 2 4323-8, LIPB #### [facility] CLIA [id number] [address] ESTIMATED GLOMERULAR FILTRATION RATE 78 mL/min/1.73m??? Normal >=60 [facility] Comment on above: Order Comment: Speci men Type: BLOOD SPECIMEN Ordering Facility: [facility] Address: [address] [place] [address] Result Comment: Gretchen mated Glomerular Filtration Rate (eGFR) is calculated using the 2020 CKD-EPI creatinine equation. This equation utilizes serum creatinine, sex, and age as parameters. The creatinine assay has traceable calibration to isotope dilution-mass spectrometry. Refer to KDIGO guidelines for clinical interpretation. In patients with unstable renal function, e.g. those with acute kidney injury, the eGFR may not accurately reflect actual GFR. Performed By: #### 2 4323-8, LIPB #### [facility] CLIA [id number] [address] [place] Glucose [Mass/Vol] 102 mg/dL High 74-99 [facility] Comment on above: Order Comment: Speci men Type: BLOOD SPECIMEN Ordering Facility: [facility] Address: [address] [place] [address] Result Comment: The [place] Diabetes Association (ADA) provides guidance for cutoff values for fasting glucose and random glucose. The ADA defines fasting as no caloric intake for at least 8 hours. Fasting plasma glucose results between 100 to 125 mg/dL indicate increased risk for diabetes (prediabetes). Fasting plasma glucose results greater than or equal to 126 mg/dL meet the criteria for diagnosis of diabetes. In the absence of unequivocal hyperglycemia, results should be confirmed by repeat testing. In a patient with classic symptoms of hyperglycemia or hyperglycemic crisis, random plasma glucose results greater than or equal to 200 mg/dL meet the criteria for diagnosis of diabetes. Reference: Standards of Medical Care in Diabetes 2016, [place] [employer]. Diabetes Care. 2016.39(Suppl 1). Performed By: #### 2 4323-8, LIPB #### [facility] CLIA [id number] [address] [place] Potassium [Moles/Vol] 4.8 mmol/L Normal 3.7-5.1 [facility] Comment on above: Order Comment: Speci men Type: BLOOD SPECIMEN Ordering Facility: [facility] Address: [address] [place] [address] Performed By: #### 2 4323-8, LIPB #### [facility] CLIA [id number] 1 [place] [address] [place] Protein [Mass/Vol] 6.8 g/dL Normal 6.3-8.0 [facility] Comment on above: Order Comment: Speci men Type: BLOOD SPECIMEN Ordering Facility: [facility] Address: [address] [place] [address] Performed By: #### 2 4323-8, LIPB #### [facility] CLIA [id number] 1 [place] [address] [place] Sodium [Moles/Vol] 143 mmol/L Normal 136-144 [facility] Comment on above: Order Comment: Speci men Type: BLOOD SPECIMEN Ordering Facility: [facility] Address: [address] [place] [address] Performed By: #### 2 4323-8, LIPB #### [facility] CLIA [id number] [address] [place] Urea nitrogen [Mass/Vol] 17 mg/dL Normal 7-21 [facility] Comment on above: Order Comment: Speci men Type: BLOOD SPECIMEN Ordering Facility: [facility] Address: [address] [place] [address] Performed By: #### 2 4323-8, LIPB #### [facility] CLIA [id number] [address] LIPID PANEL BASICon 05-18-19 22 Cholesterol [Mass/Vol] 248 mg/dL High <200 [facility] Comment on above: Order Comment: Speci men Type: BLOOD SPECIMEN Ordering Facility: [facility] Address: [address] [place] [address] Result Comment: <200 mg/dL, Desirable 200-239 mg/dL, Borderline high >239 mg/dL, High Performed By: #### 2 4323-8, LIPB #### [facility] CLIA [id number] [address] Cholesterol in HDL [Mass/Vol] 56 mg/dL Normal >39 [facility] Comment on above: Order Comment: Speci men Type: BLOOD SPECIMEN Ordering Facility: [facility] Address: [address] [place] [address] Result Comment: 40-5 9 mg/dL, Acceptable >59 mg/dL, High: Negative risk factor for coronary heart disease <40 mg/dL, Low: Positive risk factor for coronary heart disease Performed By: #### 2 4323-8, LIPB #### [facility] CLIA [id number] [address] [place] Cholesterol in LDL [Mass/Vol] 168 mg/dL High <100 [facility] Comment on above: Order Comment: Speci men Type: BLOOD SPECIMEN Ordering Facility: [facility] Address: [address] [address] Result Comment: <100 mg/dL, Optimal 100-129 mg/dL, Near optimal/above optimal 130-159 mg/dL, Borderline high 160-189 mg/dL, High >189 mg/dL, Very high Secondary prevention optimal LDL Cholesterol levels are recommended to be < 70 mg/dL Performed By: #### 2 4323-8, LIPB #### [facility] CLIA [id number] [address] Cholesterol in LDL/Cholesterol in HDL [Mass ratio] 3.00 {ratio} High <2.54 [facility] Comment on above: Order Comment: Chava borges Type: BLOOD SPECIMEN Ordering Facility: [facility] Address: [address] [place] [address] Result Comment: Refe rence: 1. National Cholesterol Education Program ATP III Guideline At-A-Glance Quick Desk Reference: National Heart, Lung, and Blood [place]. National Institutes of Health. 2001: NIH Publication No. 01-3305. 2. An International Atherosclerosis Society position paper: global recommendations for the management of dyslipidemia: executive summary, Atherosclerosis. 2014: 232(2):410-413. Performed By: #### 2 4323-8, LIPB #### [facility] CLIA [id number] [address] Cholesterol in VLDL [Mass/Vol] 24 mg/dL Normal <30 [facility] Comment on above: Order Comment: Chava borges Type: BLOOD SPECIMEN Ordering Facility: [facility] Address: [address] [address] Performed By: #### 2 4323-8, LIPB #### [facility] CLIA [id number] [address] [place] Cholesterol non HDL [Mass/Vol] 192 mg/dL High <130 [facility] Comment on above: Order Comment: Chava katerina Type: BLOOD SPECIMEN Ordering Facility: [facility] Address: [address] [address] Result Comment: <130 mg/dL, Optimal 130-159 mg/dL, Near optimal/above optimal 160-189 mg/dL, Borderline high 190-219 mg/dL, High >219 mg/dL, Very high Secondary prevention optimal non HDL Cholesterol levels are recommended to be <100 mg/dL Performed By: #### 2 4323-8, LIPB #### [facility] CLIA [id number] [address] Cholesterol.total/Ch olesterol in HDL [Mass ratio] 4.43 {ratio} Normal <5.10 [facility] Comment on above: Order Comment: Speci men Type: BLOOD SPECIMEN Ordering Facility: [facility] Address: [address] [place] [address] Performed By: #### 2 4323-8, LIPB #### [facility] CLIA [id number] [address] [place] [address] FASTING TIME 12 hrs Normal [facility] Comment on above: Order Comment: Speci men Type: BLOOD SPECIMEN Ordering Facility: [facility] Address: [address] [place] [address] Performed By: #### 2 4323-8, LIPB #### [facility] CLIA [id number] [address] Triglyceride [Mass/Vol] 118 mg/dL Normal <150 [facility] Comment on above: Order Comment: Speci men Type: BLOOD SPECIMEN Ordering Facility: [facility] Address: [address] [place] [address] Result Comment: <150 mg/dL, Normal 150-199 mg/dL, Borderline high 200-499 mg/dL, High >499 mg/dL, Very high Performed By: #### 2 4323-8, LIPB #### [facility] CLIA [id number] [address] RHEUMATOID FACTOR BLon 05-17 Rheumatoid factor Qn [IU]/mL Normal <16 [facility] Comment on above: Order Comment: Speci men Type: BLOOD SPECIMEN Ordering Facility: [facility] Address: [address] [place] [id number] Performed By: #### R F #### [facility] CLIA [id number] [address] [place] [address] [place] CNOVon 05-03-2021 CNOV Office Visit (INTGRE ) ADAMARISEVY ([id number]) 1975 F Date Time Provider Department 05/03/21 1:20 PM JOHN WARNER During your visit today, we recorded the following information about you: Temperature Pulse Blood pressure Weight 97.2 degrees 87/minute 124/80 119.3 kg Height 1.803 m John Warner MD 05/03/2021 1:50 PM Signed Subjective Evy Bailon is a 45 year old female who [...] Laterality Date - COLONOSCOP W/ OR W/O [facility] SPEC 1999 Colonoscopy - EGD W/O OR [...] KNEE REPLACEMENT left - TOTAL KNEE REPLACEMENT 2015 right FAMILY HISTORY [...] this year, she is up-to-date with Pap s (more content not included)... Normal [facility] 01-16-2021 CNPN Telephone (AGGPC) EVY BAILON ([id number]) 1975 F Date Time Provider Department 01/16/21 JOHN WARNER [facility] During your visit today, we recorded the following information about you: Za Cabrera 01/16/2021 11:11 AM Signed ----- Message from Jessica Alves sent at 01/16/2021 10:53 AM EST ----- Regarding: Medicine / [Timmy] / [Issue] Patient has been identified by name and Date of (Y/N): Y Patient: Evy Bailon Date of : 1975 Provider for this encounter: John Warner MD Reason for the call/escalation: Requesting a referral for Dr. Bolanos, Friend- gastro , shes not she if she needs a referral since its a specialist. She does have gerd or acid reflux Was Patient Referred to [facility]/Seek Emergency Treatment (Y/N): n/a Did Patient Agree (Y/N): n/a Was An Attempt Made To Transfer The Patient To The Office (Y/N): n/a Were You Able To Reach Someone At The Office (Y/N): n/a If Yes - Patient Was Transferred To (Caregivers Name): n/a If No - Which [facility] Leadership Hostel Manager Did You Speak With Regarding This Patient: n/a Was an appointment scheduled (Y/N): Y Reason patient was requesting visit (RFV/signs and symptoms/diagnosis) : Requesting a possible referral to be put in Person calling if other than patient: n/a Return call to if other than patient: n/a Best contact number: [phone] Thank you, Jessica Alves January 16, 2021 10:53 AM Raquel Ludwig 01/30/2021 9:27 AM Signed REFERRAL FAXED TO DR. BOLANOS PER PT REQUEST. FAX [phone] Raquel Ludwig Allergies As of Date: 01/16/2021 Noted Allergy Reaction CODEINE 05/27/2007 CODEINE 05/08/2017 11 - Vomiting PENICILLINS 05/27/2007 Comments: yeast infection RED DYE 05/08/2017 4 - Hives Date Reviewed: 03/09/2020 Reviewed by: John Warner - Fully Assessed Reason for Visit: Referral Request [124] Primary Visit Diagnosis:GERD without esophagitis [K21.9] Order(s):CONSULT TO GASTROENTEROLOGY [9010] Order #: [id number]: 1 FUTURE Prescriptions as of 01/30/2021 - benzonatate (TESSALON PERLES) 100 mg capsule Take 1 capsule by mouth three times daily as needed for Cough. - topiramate (TOPAMAX) 100 mg tablet Take 100 mg by mouth as needed. - VITAMIN E ORAL Take by mouth once daily. - organ concentrates (ADRENAL ORAL) Take by mouth. adrenalstability. - omeprazole (PRILOSEC) 20 mg capsule Take 20 mg by mouth once daily. - CALCIUM CARB/MAGNESIUM CARB (CALCIUM AND MAGNESIUM CARBONATES ORAL) Take by mouth. - ascorbic acid(VITAMIN C 1,000 MG TAB) Take one(1) tablet daily. - MULTIVITAMIN TAB Take one(1) tablet daily. Problem List As Of Date 01/16/2021 Noted Resolved Gastro-esophageal reflux disease without esopha*08/26/2015 Encounter Status:Closed by ZA CABRERA on 01/29/21 Normal [facility] CNPCuca 06-28-2020 CNPN Telephone (INTGRE) EVY BAILON ([id number]) 1975 F Date Time Provider Department 06/28/20 JOHN WARNER During your visit today, we recorded the following information about you: Ara Yepez Ma 06/28/2020 1:23 PM Signed ----- Message from John Warner sent at 06/25/2020 3:34 PM EDT ----- Blood work is normal, recommend continuing with healthy lifestyle including monitoring diet, avoiding fried and fatty foods, eating whole grain foods and moderate exercises for 150 min a week or 5 times a week for 30 minutes advised. Ara Yepez Ma 06/28/2020 1:34 PM Signed Called pt; no answer, left VM to return our call. YAMILA Mike Ma 06/28/2020 2:06 PM Signed Pt informed of the message below. Understanding voiced; no additional questions or concerns at this time. Ara Yepez CMA Allergies As of Date: 06/28/2020 Noted Allergy Reaction CODEINE 05/27/2007 CODEINE 05/08/2017 11 - Vomiting PENICILLINS 05/27/2007 Comments: yeast infection RED DYE 05/08/2017 4 - Hives Date Reviewed: 03/09/2020 Reviewed by: John Warner - Fully Assessed Reason for Visit: Results [95] Prescriptions as of 06/28/2020 Sig: BENZONATATE 100 MG CAPSULE Take 1 capsule by mouth three* Patient not taking: Reported on 03/09/2020 TOPIRAMATE 100 MG TABLET Take 100 mg by mouth as neede* VITAMIN E ORAL Take by mouth once daily. ADRENAL ORAL Take by mouth. adrenalstabi* OMEPRAZOLE 20 MG CAPSULE,ENMA* Take 20 mg by mouth once ajay* CALCIUM AND MAGNESIUM CARBONATE* Take by mouth. VITAMIN C 1,000 MG TABLET Take one(1) tablet daily. MULTIVITAMIN TABLET Take one(1) tablet daily. Problem List As Of Date 06/28/2020 Noted Resolved Gastro-esophageal reflux disease without esopha*08/26/2015 Encounter Status:Closed by ARA YEPEZ MA on 06/28/20 Normal [facility] CBC W Auto Differential pane l (Bld)on 06-22-2020 Basophils (Bld) [#/Vol] 0.06 10*3/uL Normal <0.11 [facility] Comment on above: Order Comment: Speci men Type: BLOOD SPECIMEN Performed By: #### 5 7021-8 #### [facility] CLIA [id number] [address] [place] [address] Basophils/100 WBC (Bld) 1.5 % Normal [facility] Comment on above: Order Comment: Speci men Type: BLOOD SPECIMEN Performed By: #### 5 7021-8 #### [facility] CLIA [id number] [address] [place] [address] Differential cell count method Nom (Bld) Auto Normal [facility] Comment on above: Order Comment: Speci men Type: BLOOD SPECIMEN Performed By: #### 5 7021-8 #### [facility] CLIA [id number] [address] [place] [address] Eosinophils (Bld) [#/Vol] 0.16 10*3/uL Normal <0.46 [facility] Comment on above: Order Comment: Speci men Type: BLOOD SPECIMEN Performed By: #### 5 7021-8 #### [facility] CLIA [id number] [address] [place] [address] Eosinophils/100 WBC (Bld) 4.1 % Normal [facility] Comment on above: Order Comment: Speci men Type: BLOOD SPECIMEN Performed By: #### 5 7021-8 #### [facility] CLIA [id number] [address] [place] [address] Erythrocyte distribution width (RBC) [Ratio] 12.3 % Normal 11.5-15.0 [facility] Comment on above: Order Comment: Speci men Type: BLOOD SPECIMEN Performed By: #### 5 7021-8 #### [facility] CLIA [id number] [address] [place] [address] Hematocrit (Bld) [Volume fraction] 47.5 % High 36.0-46.0 [facility] Comment on above: Order Comment: Speci men Type: BLOOD SPECIMEN Performed By: #### 5 7021-8 #### [facility] CLIA [id number] [address] [place] [address] Hemoglobin (Bld) [Mass/Vol] 15.4 g/dL Normal 11.5-15.5 [facility] Comment on above: Order Comment: Speci men Type: BLOOD SPECIMEN Performed By: #### 5 7021-8 #### [facility] CLIA [id number] [address] [place] [address] IMMATURE GRAN % 0.3 % Normal [facility] Comment on above: Order Comment: Speci men Type: BLOOD SPECIMEN Performed By: #### 5 7021-8 #### [facility] CLIA [id number] [address] [place] [address] IMMATURE GRAN ABS <0.03 Normal <0.10 [facility] Comment on above: Order Comment: Speci men Type: BLOOD SPECIMEN Performed By: #### 5 7021-8 #### [facility] CLIA [id number] [address] [place] [address] Lymphocytes (Bld) [#/Vol] 1.20 10*3/uL Normal 1.00-4.00 [facility] Comment on above: Order Comment: Speci men Type: BLOOD SPECIMEN Performed By: #### 5 7021-8 #### [facility] CLIA [id number] [address] [place] [address] Lymphocytes/100 WBC (Bld) 30.6 % Normal [facility] Comment on above: Order Comment: Speci men Type: BLOOD SPECIMEN Performed By: #### 5 7021-8 #### [facility] CLIA [id number] [address] [place] [address] MCH (RBC) [Entitic mass] 30.1 pg Normal 26.0-34.0 [facility] Comment on above: Order Comment: Speci men Type: BLOOD SPECIMEN Performed By: #### 5 7021-8 #### [facility] CLIA [id number] [address] [place] [address] MCHC (RBC) [Mass/Vol] 32.4 g/dL Normal 30.5-36.0 [facility] Comment on above: Order Comment: Speci men Type: BLOOD SPECIMEN Performed By: #### 5 7021-8 #### [facility] CLIA [id number] [address] [place] [address] MCV (RBC) [Entitic vol] 93.0 fL Normal 80.0-100.0 [facility] Comment on above: Order Comment: Speci men Type: BLOOD SPECIMEN Performed By: #### 5 7021-8 #### [facility] CLIA [id number] [address] [place] [address] Monocytes (Bld) [#/Vol] 0.48 10*3/uL Normal <0.87 [facility] Comment on above: Order Comment: Speci men Type: BLOOD SPECIMEN Performed By: #### 5 7021-8 #### [facility] CLIA [id number] [address] [place] [address] Monocytes/100 WBC (Bld) 12.2 % Normal [facility] Comment on above: Order Comment: Speci men Type: BLOOD SPECIMEN Performed By: #### 5 7021-8 #### [facility] CLIA [id number] [address] [place] [address] Neutrophils (Bld) [#/Vol] 2.01 10*3/uL Normal 1.45-7.50 [facility] Comment on above: Order Comment: Speci men Type: BLOOD SPECIMEN Performed By: #### 5 7021-8 #### [facility] CLIA [id number] [address] [place] [address] Neutrophils/100 WBC (Bld) 51.3 % Normal [facility] Comment on above: Order Comment: Speci men Type: BLOOD SPECIMEN Performed By: #### 5 7021-8 #### [facility] CLIA [id number] [address] [place] [address] Nucleated RBC (Bld) [#/Vol] 10*3/uL Normal <0.01 [facility] Comment on above: Order Comment: Speci men Type: BLOOD SPECIMEN Performed By: #### 5 7021-8 #### [facility] CLIA [id number] [address] [place] [address] Nucleated RBC/100 WBC (Bld) [Ratio] 0.0 /100 WBC Normal 0.0 [facility] Comment on above: Order Comment: Speci men Type: BLOOD SPECIMEN Performed By: #### 5 7021-8 #### [facility] CLIA [id number] [address] [place] [address] Platelet mean volume (Bld) [Entitic vol] 11.8 fL Normal 9.0-12.7 [facility] Comment on above: Order Comment: Speci men Type: BLOOD SPECIMEN Performed By: #### 5 7021-8 #### [facility] CLIA [id number] [address] [place] [address] Platelets (Bld) [#/Vol] 181 10*3/uL Normal 150-400 [facility] Comment on above: Order Comment: Speci men Type: BLOOD SPECIMEN Performed By: #### 5 7021-8 #### [facility] CLIA [id number] [address] [place] [address] RBC (Bld) [#/Vol] 5.11 10*6/uL Normal 3.90-5.20 [facility] Comment on above: Order Comment: Speci men Type: BLOOD SPECIMEN Performed By: #### 5 7021-8 #### [facility] CLIA [id number] [address] [place] [address] WBC (Bld) [#/Vol] 3.92 10*3/uL Normal 3.70-11.00 [facility] Comment on above: Order Comment: Speci men Type: BLOOD SPECIMEN Performed By: #### 5 7021-8 #### [facility] CLIA [id number] [address] [place] [address] Comprehensive metabolic 2000 panelon 06-22-2020 Albumin [Mass/Vol] 4.7 g/dL Normal 3.9-4.9 [facility] Comment on above: Order Comment: Speci men Type: BLOOD SPECIMEN Performed By: #### 2 4323-8, LIPB ####[facility] [id number] [place] [address] ALP [Catalytic activity/Vol] 67 U/L Normal 34-123 [facility] Comment on above: Order Comment: Speci men Type: BLOOD SPECIMEN Performed By: #### 2 4323-8, LIPB ####[facility] [id number] [place] [address] ALT With P-5'-P [Catalytic activity/Vol] 47 U/L High 7-38 [facility] Comment on above: Order Comment: Speci men Type: BLOOD SPECIMEN Performed By: #### 2 4323-8, LIPB ####[facility] [id number] [place] [address] Anion gap [Moles/Vol] 7 mmol/L Low 9-18 [facility] Comment on above: Order Comment: Speci men Type: BLOOD SPECIMEN Performed By: #### 2 4323-8, LIPB ####[facility] [id number] [place] [address] AST With P-5'-P [Catalytic activity/Vol] 34 U/L Normal 13-35 [facility] Comment on above: Order Comment: Speci men Type: BLOOD SPECIMEN Performed By: #### 2 4323-8, LIPB ####[facility] [id number] [place] [address] Bilirubin [Mass/Vol] 0.5 mg/dL Normal 0.2-1.3 [facility] Comment on above: Order Comment: Speci men Type: BLOOD SPECIMEN Performed By: #### 2 4323-8, LIPB ####[facility] [id number] [place] [address] Calcium [Mass/Vol] 9.6 mg/dL Normal 8.5-10.2 [facility] Comment on above: Order Comment: Speci men Type: BLOOD SPECIMEN Performed By: #### 2 4323-8, LIPB ####[facility] [id number] [place] [address] Chloride [Moles/Vol] 104 mmol/L Normal 97-105 [facility] Comment on above: Order Comment: Speci men Type: BLOOD SPECIMEN Performed By: #### 2 4323-8, LIPB ####[facility] [id number] [place] [address] CO2 [Moles/Vol] 31 mmol/L High 22-30 [facility] Comment on above: Order Comment: Speci men Type: BLOOD SPECIMEN Performed By: #### 2 4323-8, LIPB ####[facility] [id number] [place] [address] Creatinine [Mass/Vol] 0.83 mg/dL Normal 0.58-0.96 [facility] Comment on above: Order Comment: Speci men Type: BLOOD SPECIMEN Performed By: #### 2 4323-8, LIPB ####[facility] [id number] [place] [address] GFR/1.73 sq M.predicted MDRD (S/P/Bld) [Vol rate/Area] mL/min/{1.73_m2} Normal [facility] Comment on above: Order Comment: Speci men Type: BLOOD SPECIMEN Result Comment: >60 eGFR (Estimated GFR) Units of measure: mL/min/1.73 meters squared eGFR is derived from the reexpressed MDRD Study equation using the following parameters: serum creatinine, age, gender and race. The creatinine assay has been calibrated to be traceable to IDMS. An eGFR <60 mL/min/1.73m2 for >3 months is consistent with chronic kidney disease. Refer to KDOQI guidelines for clinical interpretation. In patients with unstable renal function, e.g. those with acute kidney injury, the eGFR may not accurately reflect actual GFR. Performed By: #### 2 4323-8, LIPB ####[facility] [id number] [place] [address] Glucose [Mass/Vol] 97 mg/dL Normal 74-99 [facility] Comment on above: Order Comment: Speci men Type: BLOOD SPECIMEN Result Comment: The [place] Diabetes Association (ADA) provides guidance for cutoff values for fasting glucose and random glucose. The ADA defines fasting as no caloric intake for at least 8 hours. Fasting plasma glucose results between 100 to 125 mg/dL indicate increased risk for diabetes (prediabetes). Fasting plasma glucose results greater than or equal to 126 mg/dL meet the criteria for diagnosis of diabetes. In the absence of unequivocal hyperglycemia, results should be confirmed by repeat testing. In a patient with classic symptoms of hyperglycemia or hyperglycemic crisis, random plasma glucose results greater than or equal to 200 mg/dL meet the criteria for diagnosis of diabetes. Reference: Standards of Medical Care in Diabetes 2016, [place] [employer] Association. Diabetes Care. 2016.39(Suppl 1). Performed By: #### 2 4323-8, LIPB ####[facility]IA [id number] [place] [address] Potassium [Moles/Vol] 4.9 mmol/L Normal 3.7-5.1 [facility] Comment on above: Order Comment: Speci men Type: BLOOD SPECIMEN Performed By: #### 2 4323-8, LIPB ####[facility] [id number] [place] [address] Protein [Mass/Vol] 7.0 g/dL Normal 6.3-8.0 [facility] Comment on above: Order Comment: Speci men Type: BLOOD SPECIMEN Performed By: #### 2 4323-8, LIPB ####[facility] [id number] [place] [address] Sodium [Moles/Vol] 142 mmol/L Normal 136-144 [facility] Comment on above: Order Comment: Speci men Type: BLOOD SPECIMEN Performed By: #### 2 4323-8, LIPB ####[facility] [id number] [place] [address] Urea nitrogen [Mass/Vol] 14 mg/dL Normal 7-21 [facility] Comment on above: Order Comment: Speci men Type: BLOOD SPECIMEN Performed By: #### 2 4323-8, LIPB ####[facility] [id number] [place] [address] HGB A1Con 06-22-2020 Average glucose Estimated from glycated hemoglobin (Bld) [Mass/Vol] 114 mg/dL Normal [facility] Comment on above: Order Comment: Speci men Type: BLOOD SPECIMEN Result Comment: eAG: (Estimated average glucose) is a calculated value from HgbA1c and is customer development representative of the average blood glucose level in the last 2-3 month period. Performed By: #### H BA1C ####[facility]IA [id number] [place] [address] HbA1c (Bld) [Mass fraction] 5.6 % Normal 4.3-5.6 [facility] Comment on above: Order Comment: Speci men Type: BLOOD SPECIMEN Performed By: #### H BA1C ####[facility] [id number] [place] [address] LIPID PANEL BASICon 06-23-19 21 Cholesterol [Mass/Vol] 204 mg/dL High <200 [facility] Comment on above: Order Comment: Speci men Type: BLOOD SPECIMEN Result Comment: <200 mg/dL, Desirable 200-239 mg/dL, Borderline high >239 mg/dL, High Performed By: #### 2 4323-8, LIPB ####[facility] [id number] [place] [address] Cholesterol in HDL [Mass/Vol] 54 mg/dL Normal >39 [facility] Comment on above: Order Comment: Speci men Type: BLOOD SPECIMEN Result Comment: 40-5 9 mg/dL, Acceptable >59 mg/dL, High: Negative risk factor for coronary heart disease <40 mg/dL, Low: Positive risk factor for coronary heart disease Performed By: #### 2 4323-8, LIPB ####[facility] [id number] [place] [address] Cholesterol in LDL [Mass/Vol] 121 mg/dL High <100 [facility] Comment on above: Order Comment: Speci men Type: BLOOD SPECIMEN Result Comment: <100 mg/dL, Optimal 100-129 mg/dL, Near optimal/above optimal 130-159 mg/dL, Borderline high 160-189 mg/dL, High >189 mg/dL, Very high Secondary prevention optimal LDL Cholesterol levels are recommended to be < 70 mg/dL Performed By: #### 2 4323-8, LIPB ####[facility]IA [id number] [place] [address] Cholesterol in LDL/Cholesterol in HDL [Mass ratio] 2.24 {ratio} Normal <2.54 [facility] Comment on above: Order Comment: Speci men Type: BLOOD SPECIMEN Result Comment: Refe rence: 1. National Cholesterol Education Program ATP III Guideline At-A-Glance Quick Desk Reference: National Heart, Lung, and Blood [place]. National Institutes of Health. 2001: NIH Publication No. 01-3305. 2. An International Atherosclerosis Society position paper: global recommendations for the management of dyslipidemia: executive summary, Atherosclerosis. 2014: 232(2):410-413. Performed By: #### 2 4323-8, LIPB ####[facility]ORYCLIA [id number] [place] [address] Cholesterol in VLDL [Mass/Vol] 29 mg/dL Normal <30 [facility] Comment on above: Order Comment: Speci men Type: BLOOD SPECIMEN Performed By: #### 2 4323-8, LIPB ####[facility]IA [id number] [place] [address] Cholesterol non HDL [Mass/Vol] 150 mg/dL High <130 [facility] Comment on above: Order Comment: Speci men Type: BLOOD SPECIMEN Result Comment: <130 mg/dL, Optimal 130-159 mg/dL, Near optimal/above optimal 160-189 mg/dL, Borderline high 190-219 mg/dL, High >219 mg/dL, Very high Secondary prevention optimal non HDL Cholesterol levels are recommended to be <100 mg/dL Performed By: #### 2 4323-8, LIPB ####[facility]ORYCLIA [id number] [place] [address] Cholesterol.total/Ch olesterol in HDL [Mass ratio] 3.78 {ratio} Normal <5.10 [facility] Comment on above: Order Comment: Speci men Type: BLOOD SPECIMEN Performed By: #### 2 4323-8, LIPB ####[facility]ORY[facility]IA [id number] [place] [address] FASTING TIME 12 hrs Normal [facility] Comment on above: Order Comment: Speci men Type: BLOOD SPECIMEN Performed By: #### 2 4323-8, LIPB ####[facility]ORY[facility] [id number] [place] [address] Triglyceride [Mass/Vol] 144 mg/dL Normal <150 [facility] Comment on above: Order Comment: Speci men Type: BLOOD SPECIMEN Result Comment: <150 mg/dL, Normal 150-199 mg/dL, Borderline high 200-499 mg/dL, High >499 mg/dL, Very high Performed By: #### 2 4323-8, LIPB ####[facility]ORYCLIA [id number] [place] [address] VITAMIN D 25 HYDROXYon 06-22 25-hydroxyvitamin D3 [Mass/Vol] 36.0 ng/mL Normal 30.0-100.0 [facility] Comment on above: Order Comment: Speci men Type: BLOOD SPECIMEN Result Comment: Clas sification of 25 [place] Vitamin D status: Deficiency: < 20 ng/ml. Insufficientcy: 20-30 ng/ml. Sufficiency: 30-100 ng/ml. Performed By: #### V ITD ####[facility]ORYCLIA [id number] [place] [address] Comprehensive Panelon 2019 Creatinine [Mass/Vol] 0.95 mg/dL Normal 0.51-0.95 [facility] Comment on above: Performed By: #### P 14 #### [facility] [address] [place], [place] [address] ALP [Catalytic activity/Vol] 76 U/L Normal 45-117 [facility] Comment on above: Performed By: #### P 14 #### [facility] [address] [place], [place] [address] Bilirubin [Mass/Vol] 0.5 mg/dL Normal 0.2-1.0 [facility] Comment on above: Performed By: #### P 14 #### [facility] [address] [place], [place] [address] Protein [Mass/Vol] 7.5 g/dL Normal 6.4-8.2 [facility] Comment on above: Performed By: #### P 14 #### [facility] [address] [place], [place] [address] ALT [Catalytic activity/Vol] 60 U/L Normal 12-78 [facility] Comment on above: Performed By: #### P 14 #### [facility] [address] [place], [place] [address] AST [Catalytic activity/Vol] 27 U/L Normal 15-37 [facility] Comment on above: Performed By: #### P 14 #### [facility] [address] [place], [place] [address] Glucose [Mass/Vol] 100 mg/dL High 70-99 [facility] Comment on above: Performed By: #### P 14 #### [facility] [address] [place], [place] [address] Albumin [Mass/Vol] 4.6 g/dL Normal 3.4-5.0 [facility] Comment on above: Performed By: #### P 14 #### [facility] [address] [place], [place] [address] Anion gap [Moles/Vol] 11 mmol/L Normal 8-16 [facility] Comment on above: Performed By: #### P 14 #### [facility] [address] [place], [place] [address] Calcium [Mass/Vol] 10.1 mg/dL Normal 8.5-10.1 [facility] Comment on above: Performed By: #### P 14 #### [facility] [address] [place] [address] CO2 [Moles/Vol] 29 mmol/L Normal 21-32 [facility] Comment on above: Performed By: #### P 14 #### [facility] [address] [place] [address] Urea nitrogen [Mass/Vol] 22 mg/dL High 7-18 [facility] Comment on above: Performed By: #### P 14 #### [facility] [address] [place] [address] Chloride [Moles/Vol] 105 mmol/L Normal 98-107 [facility] Comment on above: Performed By: #### P 14 #### [facility] [address] [place] [address] Potassium [Moles/Vol] 4.8 mmol/L Normal 3.5-5.1 [facility] Comment on above: Performed By: #### P 14 #### [facility] [address] [place] [address] Sodium [Moles/Vol] 140 mmol/L Normal 136-145 [facility] Comment on above: Performed By: #### P 14 #### [place] [address] Hemogram/Diffon 03-04-2019 Abs Immature Grans 0.02 thou/cmm Normal 0.00-0.05 [facility] Comment on above: Performed By: #### C BCD1 #### [facility] [address] [place] [address] Abs Neut (ANC) 3.14 thou/cmm Normal 1.56-6.13 [facility] Comment on above: Performed By: #### C BCD1 #### [place] [address] Abs. Baso 0.03 thou/cmm Normal 0.01-0.08 [facility] Comment on above: Performed By: #### C BCD1 #### [place] [address] Abs. [place] 0.47 thou/cmm Normal 0.27-0.70 [facility] Comment on above: Performed By: #### C BCD1 #### [facility] [address] [place], [place] [address] Basophils/100 WBC (Bld) 0.6 % Normal [facility] Comment on above: Performed By: #### C BCD1 #### [facility] [address] [place], [place] [address] Eosinophils (Bld) [#/Vol] 0.09 thou/cmm Normal 0.00-0.31 [facility] Comment on above: Performed By: #### C BCD1 #### [facility] [address] [place], [place] [address] Eosinophils/100 WBC (Bld) 1.7 % Normal [facility] Comment on above: Performed By: #### C BCD1 #### [place] [address] Erythrocyte distribution width (RBC) [Ratio] 12.3 % Normal 11.7-14.4 [facility] Comment on above: Performed By: #### C BCD1 #### [facility] [address] [place], [place] [address] Hematocrit (Bld) [Volume fraction] 45.0 % High 34.1-44.9 [facility] Comment on above: Performed By: #### C BCD1 #### [facility] [address] [place], [place] [address] Hemoglobin (Bld) [Mass/Vol] 14.8 g/dL Normal 11.2-15.7 [facility] Comment on above: Performed By: #### C BCD1 #### [facility] [address] [place], [place] [address] Immature Grans 0.40 % Normal [facility] Comment on above: Performed By: #### C BCD1 #### [facility] [address] [place], [place] [address] Lymphocytes (Bld) [#/Vol] 1.41 thou/cmm Normal 1.18-3.74 [facility] Comment on above: Performed By: #### C BCD1 #### [facility] [address] [place], [place] [address] Lymphocytes/100 WBC (Bld) 27.3 % Normal [facility] Comment on above: Performed By: #### C BCD1 #### [facility] [address] [place], [place] [address] MCH (RBC) [Entitic mass] 29.6 pg Normal 25.6-32.2 [facility] Comment on above: Performed By: #### C BCD1 #### [facility] [address] [place], [place] [address] MCHC (RBC) [Mass/Vol] 32.9 % Normal 31.6-34.8 [facility] Comment on above: Performed By: #### C BCD1 #### [facility] [address] [place], [place] [address] MCV (RBC) [Entitic vol] 90.0 fL Normal 79.4-94.8 [facility] Comment on above: Performed By: #### C BCD1 #### [facility] [address] [place], [place] [address] Monocytes/100 WBC (Bld) 9.1 % Normal [facility] Comment on above: Performed By: #### C BCD1 #### [facility] [address] [place], [place] [address] Platelet mean volume (Bld) [Entitic vol] 11.6 fL Normal 9.4-12.3 [facility] Comment on above: Performed By: #### C BCD1 #### [facility] [address] [place], [place] [address] Platelets (Bld) [#/Vol] 211 thou/cmm Normal 182-369 [facility] Comment on above: Performed By: #### C BCD1 #### [facility] [address] [place], [place] [address] RBC (Bld) [#/Vol] 5.00 mil/cmm Normal 3.93-5.22 [facility] Comment on above: Performed By: #### C BCD1 #### [facility] [address] [place], [place] [address] RDW SD 40.1 fl Normal 36.4-46.3 [facility] Comment on above: Performed By: #### C BCD1 #### [facility] [address] [place], [place] [address] Seg Neutrophil 60.9 % Normal [facility] Comment on above: Performed By: #### C BCD1 #### [facility] [address] [place], [place] [address] WBC (Bld) [#/Vol] 5.16 thou/cmm Normal 3.98-10.04 [facility] Comment on above: Performed By: #### C BCD1 #### [facility] [address] [place], [place] [address] MDRD GFRon 03-04-2019 GFR/1.73 sq M predicted among non-blacks MDRD (S/P/Bld) [Vol rate/Area] mL/min/{1.73_m2} Normal >60mL/min/1 .73m2 [facility] Comment on above: Result Comment: If t he patient is , multiply the result by 1.210. Performed By: #### G FR #### [facility] [address] [place], [place] [address] CBC (AO)on 09-10-2016 Basophils Auto #/vol (Bld) 0.10 10 3/mcL Normal 0.00-0.19 [facility] Comment on above: Performed By: #### C BCO ####[place] [address] [address] Basophils/100 WBC Auto (Bld) 0.9 % Normal 0.0-2.5 [facility] Comment on above: Performed By: #### C BCO ####rGace [address] [address] Eosinophils 0.20 10 3/mcL Normal 0.00-0.40 [facility] Comment on above: Performed By: #### C BCO ####[place] [address] [address] Eosinophils/100 leukocytes 3.0 % Normal 0.0-7.0 [facility] Comment on above: Performed By: #### C BCO ####[address] [address] Erythrocyte distribution width Auto Ratio (RBC) 13.0 % Normal 11.5-14.5 [facility] Comment on above: Performed By: #### C BCO ####[address] [address] Erythrocytes (RBC) 4.89 10 6/mcL Normal 4.20-5.40 [facility] Comment on above: Performed By: #### C BCO ####[address] [address] Hematocrit (HCT) 43.3 % Normal 37.0-47.0 [facility] Comment on above: Performed By: #### C BCO ####[address] [address] Hemoglobin mass conc (Bld) 14.7 G/dL Normal 12.0-16.0 [facility] Comment on above: Performed By: #### C BCO ####[address] [address] Lymphocytes 2.30 10 3/mcL Normal 0.77-3.85 [facility] Comment on above: Performed By: #### C BCO ####[address] [address] Lymphocytes/100 leukocytes 38.7 % Normal 10.0-50.0 [facility] Comment on above: Performed By: #### C BCO ####[place] [address] [address] MCH 30.1 pg Normal 27.0-31.2 [facility] Comment on above: Performed By: #### C BCO ####[address] [address] MCHC mass conc (RBC) 34.0 G/dL Normal 33.0-37.0 [facility] Comment on above: Performed By: #### C BCO ####[address] [address] MCV 88.6 fL Normal 80.0-94.0 [facility] Comment on above: Performed By: #### C BCO ####[address] [address] Monocytes 0.50 10 3/mcL Normal 0.15-1.00 [facility] Comment on above: Performed By: #### C BCO ####[address] [address] Monocytes/100 leukocytes 8.4 % Normal 1.7-13.0 [facility] Comment on above: Performed By: #### C BCO ####[address] [address] Neutrophils 2.90 10 3/mcL Normal 2.85-6.16 [facility] Comment on above: Performed By: #### C BCO ####[address] [address] Neutrophils/100 WBC Auto (Bld) 49.0 % Normal 37.0-80.0 [facility] Comment on above: Performed By: #### C BCO ####[address] [address] Platelet mean volume (PMV) 9.6 fL Normal 7.4-10.4 [facility] Comment on above: Performed By: #### C BCO ####[address] [address] Platelets 204 10 3/mcL Normal 130-400 [facility] Comment on above: Performed By: #### C BCO ####[address] [address] WBC (Leukocytes) 5.90 10 3/mcL Normal 4.60-10.80 [facility] Comment on above: Performed By: #### C BCO ####[address] [address] Erythrocyte Sed Rateon 09-10 Erythrocytes (RBC) 4 mm/hr Normal 0-20 [facility] Comment on above: Performed By: #### E SR ####[facility], [address] [place] [address] Hepatic Function Panel (AO)o n 09-10-2016 Alanine aminotransferase (ALT) 28 U/L Normal 10-35 [facility] Comment on above: Performed By: #### H FPO ####[address] [address] Alk. Phosphatase 72 IU/L Normal 40-135 [facility] Comment on above: Performed By: #### H FPO ####[address] [address] Aspartate aminotransferase (AST) 22 U/L Normal 10-40 [facility] Comment on above: Performed By: #### H FPO ####[address] [address] T. Protein 7.3 G/dL Normal 6.0-8.3 [facility] Comment on above: Performed By: #### H FPO ####[address] [address] Bilirubin (direct) mg/dL Normal 0.1-0.5 [facility] Comment on above: Performed By: #### H FPO ####[address] [address] Bilirubin (direct) 0.4 mg/dL Normal 0.2-1.0 [facility] Comment on above: Performed By: #### H FPO ####[place] [address] [address] Bilirubin (indirect) NOT VALID Normal [facility] Comment on above: Result Comment: Unab le to calculate this test result accurately. Resultsused to calculate this test are outside the reportable range. Performed By: #### H FPO ####[address] [address] Albumin 4.9 G/dL Normal 3.5-5.0 [facility] Comment on above: Performed By: #### H FPO ####[facility] [address] [place] [address] XR SACRUM/COCCYX MINIMUM 2 V IEWSon 09-10-2016 XR SACRUM/COCCYX MINIMUM 2 VIEWS ORIGINALXR SACRUM/COCCYX MINIMUM 2 VIEWS CLINICAL STATEMENT: Pain COMPARISON: None FINDINGS:No acute fracture or dislocation is identified. No osseous lesion is seen. The sacroiliac joints are normal in appearance. IMPRESSION:No acute process. Interpreted By: Althea Arvizureliminary Report By: Althea Arvizu MDElectronically Signed By: Althea Arvizu MD Dictated Date: 09/10/2016 1:47:35 PM Prelim Date: 09/10/2016 1:47:35 PM Sign Date: 09/10/2016 1:48:43 PM Normal [facility] XR SPINE LUMBAR W/OBLIQUESon 09-10-2016 XR SPINE LUMBAR W/OBLIQUES ORIGINALXR SPINE LUMBAR 5 views CLINICAL STATEMENT: Hip, lumbar spine, and coccyx pain, history of multiple falls Comparison: None FINDINGS: There are five lumbar-type vertebral bodies which are maintained in appropriate alignment. The vertebral body heights are preserved. There is joint space narrowing at L5-S1. There is no fracture or spondylolisthesis. There is a right convex curvature. The sacroiliac joints are unremarkable. There is minimal marginal spurring. Surgical clips are noted in the right upper quadrant of the abdomen. IMPRESSION: Minimal degenerative changes. I have personally reviewed the images of this examination and agree with the resident's findings and interpretation. Interpreted By: Amado Becerrilreliminary Report By: Keri Gutierrez MDElectronically Signed By: Amado Becerril MD Dictated Date: 09/10/2016 10:11:20 AM Prelim Date: 09/10/2016 11:43:35 AM Sign Date: 09/10/2016 11:59:34 AM Normal [facility] Vital Signs Date Time Vital Sign Value Performing Clinician Deniz hoyos 06-12-2022 08:10-0400 Respiratory rate 18 /min Dr. Prosper Eric Work Phone: [facility] 06-12-2022 07:25-0400 Body temperature 97.2 [degF] Dr. Prosper Eric Work Phone: [facility] 06-12-2022 07:25-0400 Diastolic blood pressure 73 mm[Hg] Dr. Prosper Eric Work Phone: 0(659)698-536974 [place] [address] 06-12-2022 07:25-0400 Heart rate 62 /min Dr. Prosper Eric Work Phone: 0(728)368-561974 [place] [address] 06-12-2022 07:25-0400 SaO2% (BldA) [Mass fraction] 95 % Dr. Prosper Eric Work Phone: 4(933)036-986674 [place] [address] 06-12-2022 07:25-0400 Systolic blood pressure 112 mm[Hg] Dr. Prosper Eric Work Phone: 1(869)657-868671 [place] [address] 06-12-2022 05:49-0400 Body height 180.[address] Prosper Eric Work Phone: 4(074)325-269171 [place] [address] 06-12-2022 05:49-0400 Body mass index (BMI) [Ratio] 36.8 kg/m2 Dr. Prosper Eric Work Phone: 3(500)440-478174 [place] [address] 06-12-2022 05:49-0400 Body weight 119.[address] Prosper Eric Work Phone: 4(713)676-380871 [place] [address] 03-10-2022 14:02-0500 Body mass index (BMI) [Ratio] 38.3 kg/m2 Dr. Prosper Eric Work Phone: 3(946)734-380474 [place] [address] 03-10-2022 14:02-0500 Body weight 124.[address] Prosper Eric Work Phone: 3(588)748-623474 [place] [address] 03-10-2022 14:02-0500 Diastolic blood pressure 85 mm[Hg] Dr. Prosper Eric Work Phone: 0(185)892-161471 [place] [address] 03-10-2022 14:02-0500 Systolic blood pressure 144 mm[Hg] Dr. Prosper Eric Work Phone: 0(794)607-844671 [place] [address] 05-03-2021 13:18-0500 Body height 180.3 cm John Warner MD Work Phone: [facility] 05-03-2021 13:18-0500 Body temperature 97.2 [degF] John Warner MD Work Phone: [facility] 05-03-2021 13:18-0500 Body weight 119.3 kg John Warner MD Work Phone: [facility] 05-03-2021 13:18-0500 Diastolic blood pressure 80 mm[Hg] John Warner MD Work Phone: [facility] 05-03-2021 13:18-0500 Heart rate 87 /min John Warner MD Work Phone: [facility] 05-03-2021 13:18-0500 SaO2% (BldA) [Mass fraction] 97 % John Warner MD Work Phone: [facility] 05-03-2021 13:18-0500 Systolic blood pressure 124 mm[Hg] John Warner MD Work Phone: [facility] 03-09-2020 15:52-0500 BP Diastolic 100 mm[Hg] [facility] 03-09-2020 15:52-0500 BP Systolic 140 mm[Hg] [facility] 03-09-2020 12:58-0500 Body Temperature 97.9 [degF] [facility] 03-09-2020 12:58-0500 Body [facility] 123.38 [facility] 03-09-2020 12:58-0500 Height 180.3 cm [facility] 03-09-2020 12:58-0500 Pulse (Heart Rate) 73 /min [facility] 03-09-2020 12:58-0500 Pulse Oximetry 97 % [facility] Encounters Encounter Date Encounter Type Care Provider Facility Start: 05-27-2024 End: 05-27-2024 ambulatory Miesha Avila Facility:[facility] Start: 03-01-2024 End: 03-01-2024 ambulatory Jeannette Shin NP Facility:[facility] Start: 04-13-2023 End: 04-13-2023 ambulatory [facility] Work Phone: Start: 04-13-2023 End: 04-13-2023 Patient encounter procedure [facility] Work Phone: Start: 06-12-2022 Non-patient / Non-visit Dr. Prosper Eric Work Phone: [facility] Start: 06-12-2022 End: 06-12-2022 Admission to same day surgery center Dr. Prosper Eric Work Phone: [facility]-Endoscopy Start: 06-12-2022 End: 06-12-[address] Prosper Eric Work Phone: [facility] Work Phone: Start: 06-03-2022 End: 06-03-[address] Prosper Eric Work Phone: [facility]-Outpatient Breast Imaging Start: 04-08-2022 End: 04-08-[address] Prosper Eric Work Phone: [facility] Start: 03-10-2022 End: 03-10-[address] Prosper Eric Work Phone: [facility] Start: 01-10-2022 End: 01-11-2022 ambulatory SILVIO STILL PA-C Facility:[facility] Start: 01-10-2022 End: 01-10-2022 Patient encounter procedure SILVIO STILL PA-C [facility] Start: 05-03-2021 End: 05-03-2021 Patient encounter procedure John Warner MD Work Phone: [facility] Comment on above: Annual physical exam (Primary Dx); Encounter for screening mammogram for breast cancer; Arthralgia, unspecified joint Start: 01-16-2021 Telephone encounter John terrazas MD Work Phone: [facility] Comment on above: Referral Request Start: 07-05-2020 End: 07-05-2020 Patient encounter procedure [facility] Provider [facility] Start: 06-28-2020 End: 06-28-2020 Telephone encounter John Warner MD Work Phone: [facility] Comment on above: Results Start: 03-09-2020 End: 03-09-2020 Patient encounter procedure John Warner Work Phone: [facility] Comment on above: Annual physical exam (Primary Dx); Elevated blood pressure reading without diagnosis of hypertension; Routine lab draw; Screening for endocrine, nutritional, metabolic and immunity disorder Start: 02-16-2020 End: 02-16-2020 Patient encounter procedure [facility] Provider [facility] Start: 09-10-2016 End: 09-11-2016 Ambulatory SRIKANTH MORALES Facility:[facility] Procedures Date Procedure Procedure Detail Performing Clinician Start: 06-12-[address] Jenae quinteros Friend Work Phone: Start: 06-03-2022 Screening mammography Maykel Bolanos Friend Work Phone: Start: 05-03-2021 Adult depression scr eening assessment John Warner MD Work Phone: Start: 04-15-2021 Mammography John terrazas MD Work Phone: Start: 03-09-2020 Adult depression scr eening assessment John Warner MD Work Phone: Start: 12-06-2018 Mammography [facility] Provid er Plan of Treatment Date Care Activity Detail Author Start: 05-09-2027 Urine microalbumin profile [facility] Start: 06-22-2025 LIPID SCREEN LIPID SCREEN [facility] Start: 06-23-2023 DIABETES SCREEN DIABETES SCREEN [facility] Start: 06-12-2022 Patient discharge [facility] Start: 05-09-2022 LIPID SCREEN LIPID SCREEN [facility] Start: 05-03-2022 Adult depression screening assessment DEPRESSION SCREENING [facility] Start: 04-15-2022 Mammography MAMMOGRAM [facility] Start: 03-04-2022 DIABETES SCREEN DIABETES SCREEN [facility] Start: 08-29-2021 Influenza vaccination INFLUENZA (#1) [facility] Comment on above: Postponed from 10/31 (Declined at this time) Start: 05-03-2021 End: 05-03-2022 CBC W Auto Differential panel - Blood CBC + DIFF Lab Routine Annual physical exam Expected: 05/03/2021, Expires: 05/03/2022 [facility] Work Phone: Comment on above: Expected: 05/03/2021 , Expires: 05/03/2022 Start: 05-03-2021 End: 05-03-2022 Comprehensive metabolic 2000 panel - Serum or Plasma COMP METABOLIC PANEL Lab Routine Annual physical exam Expected: 05/03/2021, Expires: 05/03/2022 [facility] Work Phone: Comment on above: Expected: 05/03/2021 , Expires: 05/03/2022 Start: 05-03-2021 End: 05-03-2022 LIPID PANEL BASIC LIPID PANEL BASIC Lab Routine Annual physical exam Expected: 05/03/2021, Expires: 05/03/2022 [facility] Work Phone: Comment on above: Expected: 05/03/2021 , Expires: 05/03/2022 Start: 05-03-2021 End: 07-03-2021 RHEUMATOID FACTOR BL RHEUMATOID FACTOR BL Lab Routine Arthralgia, unspecified joint Expected: 05/03/2021, Expires: 07/03/2021 [facility] Work Phone: Comment on above: Expected: 05/03/2021 , Expires: 07/03/2021 Start: 03-09-2021 Adult depression screening assessment DEPRESSION SCREENING [facility] Start: 10-31-2020 Influenza vaccination [facility] Start: 08-29-2020 Influenza vaccination INFLUENZA (#1) [facility] Comment on above: Postponed from 10/31 (Declined at this time) Start: 07-11-2020 COVID-19 VACCINE (2 - Pfizer 2-dose series) COVID-19 VACCINE (2 - Pfizer 2-dose series) [facility] Start: 05-07-2020 Mammography MAMMOGRAM [facility] Comment on above: Postponed from 12/06 (Currently Scheduled) Start: 12-07-2019 Mammography MAMMOGRAM [facility] Start: 11-01-2019 Influenza vaccination INFLUENZA (#1) [facility] Start: 2018 COLOGUARD (FIT-DNA) COLOGUARD (FIT-D NA) [facility] Start: 2018 Colonoscopy COLONOSCOPY [facility] Start: 2018 COLORECTAL CANCER SCREENING COLORECTAL CANCER SCREENING [facility] Start: [address] COLONOGRAPHY [facility] Start: 2018 FECAL OCCULT BLOOD FECAL OCCULT BLOO D [facility] Start: 2018 SIGMOIDOSCOPY SIGMOIDOSCOPY [facility] Start: 05-06-1991 HEPATITIS C SCREENING HEPATITIS C SC REENING [facility] Start: 05-06-1991 HIV SCREENING HIV SCREENING [facility] CBC W Auto Different ial panel - Blood CBC + DIFF Lab Routine Routine lab draw 1 Occurrences starting 03/09/2020 [facility] Comment on above: 1 Occurrences starti ng 03/09/2020 Comprehensive metabo lic 2000 panel COMP METABOLIC PANEL Lab Routine Routine lab draw 1 Occurrences starting 03/09/2020 [facility] Comment on above: 1 Occurrences starti ng 03/09/2020 Glucose [Mass/volume ] in Serum or Plasma [facility] HbA1c (Bld) [Mass fraction] HGB A1C Lab Routine Screening for endocrine, nutritional, metabolic and immunity disorder 1 Occurrences starting 03/09/2020 [facility] Comment on above: 1 Occurrences starti ng 03/09/2020 Hemoglobin A1c/Hemoglobin.total in Blood [facility] Lipid 1996 panel - S bret or Plasma [facility] LIPID PANEL BASIC LIPID PANEL BA SIC Lab Routine Screening for endocrine, nutritional, metabolic and immunity disorder 1 Occurrences starting 03/09/2020 [facility] Comment on above: 1 Occurrences starti ng 03/09/2020 Patient referral [facility] Work Phone: VITAMIN D 25 HYDROXY VITAMIN D 2 5 HYDROXY Lab Routine Screening for endocrine, nutritional, metabolic and immunity disorder 1 Occurrences starting 03/09/2020 [facility] Comment on above: 1 Occurrences starti ng 03/09/2020 [facility] Immunization Date Immunization Notes Care Provider Luisa shah 07-11-2020 Covid (Pfizer) Dr. Prosper yun Work Phone: [facility] 06-20-2020 Covid (Pfizer) Dr. Prosper yun Work Phone: [facility] 05-08-2017 tetanus toxoid, redu rosalva diphtheria toxoid, and acellular pertussis vaccine, adsorbed [facility] Provider [facility] 10-01-2016 tetanus toxoid, redu rosalva diphtheria toxoid, and acellular pertussis vaccine, adsorbed [facility] 12-31-2012 influenza, seasonal, injectable [facility] Provider [facility] Payers Date Payer Category Payer Self-pay [id number] 2018 Unknown [id number] 2013 Unknown [id number] 1973 Unknown [id number] Unknown [id number] Unknown [id number] Social History Date Type Detail Facility Start: 05-08-2017 End: 04-22-2019 Tobacco smoking status NHIS Never smoker [facility] Start: 05-08-2017 End: 04-22-2019 Tobacco use and exposure Never used [facility] Start: 04-22-2019 End: 05-03-2021 Alcohol intake Current drinker of alcohol (finding) [facility] Start: 05-08-2017 Alcohol Comment sometimes [place] [facility] Start: 1975 Sex Assigned At Not on file [facility] Exposure to SARS-CoV-2 (event) Not sure [facility] Tobacco smoking status No Smoking Status Entered [facility] Mio Start: 1975 Sex Assigned At Female [facility] Start: 06-10-2022 End: 09-04-2022 Tobacco smoking status NHIS Unknown if ever smoked [facility] NEGATED: Highlighted row [facility] Goals Date Patient Goal Desired Activity /State Mental Status Date Assessment Result Facility 06-12-2022 Cognitive function Level Of Consciousness Sedated [facility] Work Phone: 06-12-2022 Cognitive function Patient Orien tation Person;Place;Time [facility] Work Phone: Clinical Notes 06-28-2020 to 06-12-2022 Patient Kai Warner MD - 05/03/2021 1:18 PM ESTTelephone Encounter - Za Cabrera - 01/16/2021 11:11 AM ESTTelephone Encounter - Ara Yepez Ma - 06/28/2020 2:06 PM EDT Note Date & Type Note Facility 06-12-2022 Procedure note [facility] 06-12-2022 Procedure note [facility] 06-12-2022 Procedure note [facility] 06-12-2022 Procedure note [facility] 01-10-2022 Note ORIGINAL EXAMINATION: MRI OF THE [...] Sign Date: 01/10/2022 12:53:13 PM Ordering Provider: [facility] 01-10-2022 Note ORIGINAL EXAMINATION: MRI OF THE [...] Sign Date: 01/10/2022 12:53:13 PM [facility] Note HNO ID: [id number] Author: John Warner MD Service: ? Author Type: Physician Type: Progress Notes Filed: 05/03/2021 1:50 PM Note Text: Bharati Bailon is a 45 year old female who [...] Laterality Date - COLONOSCOP W/ OR W/O [facility] SPEC 1999 Colonoscopy - EGD W/O OR [...] KNEE REPLACEMENT left - TOTAL KNEE REPLACEMENT 2015 right FAMILY HISTORY [...] 719.40, ICD10: M25.50 - RHEUMATOID FACTOR BL John Warner MD [facility] 05-03-2021 Instructions John Warner MD - 05/03/2021 1:41 PM EST Please get fasting blood work done. Fasting is for at least 12 hours and nothing to eat. You may drink plenty of water during that time. Our lab downstairs is open at 7am on weekday mornings and 8am on Thursday mornings. We will print your lab slips for you to take with you today. documented in this encounter [facility] 05-03-2021 History of Presen t illness Narrative Bharati Bailon is a 45 year old female who [...] Procedure Laterality Date COLONOSCOP W/ OR W/O [facility] SPEC 1999 Colonoscopy EGD W/O OR W/BRUSH/WASH 1999 EGD HYSTERECTOMY 2013 LAPAROSCOPY W/BIOPSY PAST SURGICAL HISTORY OF rigth knee partial kneecap remeoved PAST SURGICAL HISTORY OF both feet, bunion and hammertoes PAST SURGICAL HISTORY OF right elbow PAST SURGICAL HISTORY OF right patella broken. removed pieces. PAST SURGICAL HISTORY OF 1989 bunion removal PAST SURGICAL HISTORY OF left elbow. arthoscopic REMOVAL GALLBLADDER 2011 REMOVAL OF KNEE CARTILAGE 1999 right knee [...] 719.40, ICD10: M25.50 - RHEUMATOID FACTOR BL John Warner MD documented in this encounter [facility] 01-16-2021 Miscellaneous Notes ----- Message from Jessica Alves sent at 01/16/2021 10:53 AM EST ----- Regarding: Medicine / [Timmy] / [Issue] Patient has been identified by name and Date of (Y/N): Y Patient: Evy Bailon Date of : 1975 Provider for this encounter: John Warner MD Reason for the call/escalation: Requesting a referral for Dr. Bolanos, Friend- gastro , shes not she if she needs a referral since its a specialist. She does have gerd or acid reflux Was Patient Referred to [facility]/Seek Emergency Treatment (Y/N): n/a Did Patient Agree (Y/N): n/a Was An Attempt Made To Transfer The Patient To The Office (Y/N): n/a Were You Able To Reach Someone At The Office (Y/N): n/a If Yes - Patient Was Transferred To (Caregivers Name): n/a If No - Which [facility] Leadership Hostel Manager Did You Speak With Regarding This Patient: n/a Was an appointment scheduled (Y/N): Y Reason patient was requesting visit (RFV/signs and symptoms/diagnosis) : Requesting a possible referral to be put in Person calling if other than patient: n/a Return call to if other than patient: n/a Best contact number: [phone] Thank you, Jessica Alves January 16, 2021 10:53 AM documented in this encounter [facility] 06-28-2020 Miscellaneous Notes Pt informed of the message below. Understanding voiced; no additional questions or concerns at this time. Ara Yepez CMA Called pt; no answer, left VM to return our call. Ara Yepez CMA ----- Message from John Warner sent at 06/25/2020 3:34 PM EDT ----- Blood work is normal, recommend continuing with healthy lifestyle including monitoring diet, avoiding fried and fatty foods, eating whole grain foods and moderate exercises for 150 min a week or 5 times a week for 30 minutes advised. documented in this encounter [facility] Evaluation + Plan note No data available for this section [facility] Evaluation note Diagnosis GERD without esophagitis- Primary Esophageal reflux [facility] Diagnosis Annual physical exam- Primary Routine general medical examination at a health care facility Encounter for screening mammogram for breast cancer Arthralgia, unspecified joint [facility] Diagnosis Onset Date Resolution Status Encounter for routine gynecological examination noneactive Screening for colon cancer a cute Rothman esophagus chronic Gastric reflux chronic [facility] Work Phone: Evaluation noteNo assessment information available [facility] Work Phone: History and physical note Author Prosper Friend [facility] June 12, 2022 6:35am Note Date/Time June 12, 2022 6:3 5am [facility] Medical Records Department [address] [place] [id number] History & Physical Exam 06/12/22 0635 MR#: [id number] Acct: [id number] Name: EVY BAILON ALTHEA Rep #:[id number] : 1975 47 From: Prosper Eric DO PCP: Karey Urbina DO Status:REG S DC Location: [place] [address] History and Physical Date of Admission: 06/12/22 EVY BAILON, is a 46 F who presents to the office today for Follow up. PMHfibromyalgia with costochondritis; arthritis/osteoarthritis GI, outside, established previously for reflux with recommendation for omeprazole 20mg QD and PRN Gaviscon. Reports endoscopy in 1999?s with Rothman?s esophagus finding. *BGI established 02.21.21. ?EGD 02.28.21?LA Grade A reflux esophagitis, Rothman?s; erythematous antrum and duodenal bulb, gastritis. ?Start sucralfate, omeprazole 40mgQAM and famotidine 40mg QHS Feels she is doing well overall since LV. Reports that with omeprazole 40mg she is not having any symptoms. Currently taking Omeprazole 40mg only. ROS Const Constitutional: No anorexia, fatigue, fever(s), weight change or sleep problems Eyes Eyes: No change in vision ENT ENT: No abnormal hearing, difficulty swallowing, mouth lesions, tongue swelling or throat swelling Resp Respiratory: No cough or shortness of breath Cardio Cardiology: No chest pain at rest, chest pain with exertion, shortness of breathor dyspnea on exertion Gastro GI: No difficulty swallowing Genitourinary-Female: No difficulty urinating or burning urination Musc Musculoskeletal: No joint pain, joint swelling, muscle weakness or decreased muscle mass Skin Skin: No hair loss in leg, yellowing of the eye, itchy eyes, rash, skin ulcer orskin swelling Neuro Neurology: No abnormal hearing, abnormal movements, confusion, unsteady gait/balance or memory loss Psych Psychiatric: No anxiety, No confusion and No memory loss Endo Endocrine: No fatigue or weight change Aller/Imm Allergy/Immunologic: No itchy eyes, throat swelling or tongue swelling Esvin/Lymp Hematologic/Lymphatic: No easy bleeding, easy bruising or enlarged lymph nodes Exam Const General: cooperative and comfortable Nutritional Appearance: average body habitus and well nourished [facility] Head: normal to inspection Ears: hearing grossly normal bilaterally Nose: external nose normal Face and sinus: normal facial exam Mouth: oral mucosae normal Throat: posterior oropharynx normal Eyes General: appearance normal, both eyes and all related structures Neck Neck: normal visual inspection Chest Chest palpation & inspection: normal inspection of the chest and normal palpation of entire chest wall Resp Effort & Inspection: normal respiratory effort Auscultation: Bilateral: Clear to Auscultation Cardio Palpation: normal PMI Rate: regular rate Rhythm: regular rhythm GI Inspection: normal to inspection Auscultation: normal bowel sounds Percussion: normal to percussion Palpation: no hepatosplenomegaly Skin General: no rashes or lesions noted Neuro General: patient alert Extrem General: normal to inspection Psych Affect: normal affect Quality Reporting Tobacco Screening ([facility] 138) Smoking Status: Never smoker Assessment and Plan Assessment and Plan (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 She has had 1 or 2 breakthrough episodes of acid reflux disease.? She denies any nausea.? She denies any chest pain or shortness of breath.? She does not seem to be experiencing any side effects from PPI therapy.? She takes a vitamin D supplement, probiotic supplement, zinc supplement and vitamin D supplement along with calcium.? She will undergo surveillance upper endoscopy.? She was explained alternatives, risk, benefits including outstanding bleeding, infection, sepsis, perforation, need for emergent surgery? and .? She will have an ASA of 1. (2) Gastric reflux: ?Status:?Chronic (3) Screening for colon cancer: ?Status:?Acute ?Plan: She will need to undergo screening for colon cancer.? National guidelines for screening for colonoscopy is 45 years of age.? She is 46 years old.? She does not have any abdominal pain.? She is not having any cramping.? She has had no change in bowel movements.? She is not having any bleeding per rectum.? Overall she is in very good health.? She was explained alternatives, risk, benefits including not withstanding bleeding, infection, sepsis, perforation, need for emergent surgery and .? She will have an ASA 1. I have examined the patient and the H&P has been reviewed. There are no clinicalchanges since date of exam. 06/12/22 0635 <Electronically signed by Prosper Eric DO> Cosigner Signature (if applicable): CC: Karey Urbina DO; Prosper Eric DO~ Signed [facility] Work Phone: Hospital Discharge instructions No data available for this section [facility] Summary Purpose Family History No Family History Records Found Relationship Condition Age at Onset Recorded Date/T mart sister Malignant neoplasm of breast 40 aunt Malignant neoplasm of breast 35 aunt Malignant neoplasm of breast 95 mother Endometriosis Unknown Advance Directives No Advanced Directives Records Found Advance Directive Response Recorded Date/ Time Name of Medical Power of Special Officer Automat MISHEL BAILON June 10, 2022 11:41am Advance Directives Yes December 18, 2014 6:49pm Living Will Yes June 10, 2022 11:41am Power of Special Officer Automat Yes June 10 11:41am Advance Directive Response Recorded Date/ Time Advance Directives Yes December 18, 2014 5:49pm Living Will Yes June 10, 2022 10:41am Power of Special Officer Automat Yes June 10 10:41am Instructions * Patient Instructions* John Warner - 03/09/2020 1:23 PM EST Please [...] call withresults or send them securely through [facility]. documented in this encounter History of Present Illness * John Warner - 03/09/2020 1:01 PM EST Subjective Evy Bailon is a 44 year old female who [...] Procedure Laterality Date COLONOSCOP W/ OR W/O [facility] SPEC 1999 Colonoscopy EGD W/O OR W/BRUSH/WASH [...] (97.9 F) (Tympanic) Ht 180.3 cm (5' 11) Wt 123.4 kg (272 lb) SpO2 97% [...] HGB A1C - VITAMIN D 25 HYDROXY John Warner MD documented in this encounter Assessments [...] TO GASTROENTEROLOGY NEW PATIENT VISIT LEVEL 5 John Warner MD 6 [facility] [address] [place] [address] [facility] [address] [place] [address] Referral ID Status Reason Start Date Expiration Date V isits Requested Visits Authorized [id number] Closed PCP Requested Referral 01/16/2021 01/16/2022 1 1 Chief Complaint and Reason for Visit Chief Complaint 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) Consult SCREENING Reason for Visit Encounter for routin e gynecological examination Screening for colon cancer Rothman esophagus Gastric reflux Chief Complaint EORDER Additional Source Comments INFORMATION SOURCE (unrecogn ized section and content) DATE CREATED AUTHOR 08/26/2017 [facility] DATE CREATED AUTHOR AUTHOR'S ORGANIZ ATION 04/22/2019 [facility] DATE CREATED AUTHOR AUTHOR'S ORGANIZ ATION 05/28/2021 [facility] DATE CREATED AUTHOR AUTHOR'S ORGANIZ ATION 01/22/2022 [facility] DATE CREATED AUTHOR AUTHOR'S ORGANIZ ATION 05/28/2024 [facility] Source Comments (unrecognize d section and content) In the event this informatio n is protected by the Federal Confidentiality of Alcohol and Drug Abuse Patient Records regulations: The Federal rules restrict any use of the information to criminally investigate or prosecute any alcohol or drug abuse patient.[facility] the event this information is protected by the Federal Confidentiality of Alcohol and Drug Abuse Patient Records regulations: The Federal rules restrict any use of the information to criminally investigate or prosecute any alcohol or drug abuse patient.[facility] Hospital[facility] the event this information is protected by the Federal Confidentiality of Alcohol and Drug Abuse Patient Records regulations: The Federal rules restrict any use of the information to criminally investigate or prosecute any alcohol or drug abuse patient.[facility] the event this information is protected by the Federal Confidentiality of Alcohol and Drug Abuse Patient Records regulations: The Federal rules restrict any use of the information to criminally investigate or prosecute any alcohol or drug abuse patient.[facility] the event this information is protected by the Federal Confidentiality of Alcohol and Drug Abuse Patient Records regulations: The Federal rules restrict any use of the information to criminally investigate or prosecute any alcohol or drug abuse patient.[facility] Hospital[facility] the event this information is protected by the Federal Confidentiality of Alcohol and Drug Abuse Patient Records regulations: The Federal rules restrict any use of the information to criminally investigate or prosecute any alcohol or drug abuse patient.[facility] Reason for Visit (unrecogniz ed section and content) Reason Comments Physical Reason Comments Results Reason Comments Referral Request Care Teams (unrecognized sec tion and content) 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 [address] [place] [id number] 04/09/17 Team Status: Active Member Role Status Dates Out of [facility] Doctor Family Provider Active Karey Urbina DO Primary Care Provider Active Team Status: Inactive Member Role Status Dates Dr. Samira Baron MD Attending Provider Active Team Status: Inactive Member Role Status Dates Dr. Prosper Eric DO Attending Provider Active Team Status: Active Member Role Status Dates Dr. Prosper Eric DO Attending Provider, Other Prov ider Active Karey Urbina DO Primary Care Provider, Referring Provider Active Team Status: Inactive Member Role Status Dates Dr. Samira Baron MD Attending Provider Active Karey Urbina DO Primary Care Provider Active Team Status: Inactive Member Role Status Dates Dr. Prosper Eric , DO Attending Provider Active Karey Urbina , DO Primary Care Provider, Referring Provider Active Team Status: Inactive Member Role Status Dates Karey Urbina , DO Primary Care Provi singh, Attending Provider, Referring Provider Active Care Team (unrecognized sect ion and content) Care Team Personnel Name: SRIKANTH MORALES MD Position: P4 Physician - Primary Care Member Role: Primary Care Physician Address: Address: [address] [place] [address]- [place] Care Team Related Persons Name: MISHEL BAILON Address: Home [address] [place] [address] Goals (unrecognized section and content) Goals may be documented in a n alternate section FOR RECORDS PERTAINING TO PATIENTS WHO ARE [...] BE BASED ON THE PRIMARY CLINICAL RECORDS. [employer] provides no warranty or guarantee of the accuracy or completeness of information in this document.
[2024-09-09 10:40] LABS: Hematocrit 44.1 % (37-47); Hemoglobin 14.4 g/dL (12.0-15.0); Immature Granulocytes Count 0.020 X10^3/uL (0.0-0.0); Mean Corp Hgb Conc 32.7 g/dL (32-36); Mean Corpuscular Volume 92.5 fL (81-99); Mean Platelet Vol. 12.0 fl (6.2-12.0); NRBC Flagged by Analyzer 0 % (0-5); Platelet Count 150 K/mm3 (150-450); RBC Distribution Width CV 12.5 % (11.6-14.6); RBC Distribution Width SD 42.7 fl (35.1-43.9); Red Blood Count 4.77 M/mm3 (4.2-5.4); White Blood Count 5.0 K/mm3 (4.4-11.0)
[2024-09-09 11:47] LABS: AST(SGOT) 65 U/L (<=31); Alanine Aminotransfer ALT/SGPT 147 U/L (<=34); Albumin, Serum 4.3 g/dL (3.5-5.0); Alkaline Phosphatase 66 U/L (35-104); Anion Gap 11 (5-15); BUN 26 mg/dL (4-19); BUN/Creat Ratio 31.6 RATIO (10-20); Calcium,Total 9.6 mg/dL (7.6-11.0); Carbon Dioxide 27.1 mmol/L (21.0-32.0); Chloride 102 mmol/L (98-108); Cholesterol 268 mg/dL (<=200); Globulin 2.4 g/dL (2.2-4.2); Glucose 108 mg/dL (70-99); Low Density Lipoprotein Calc. 183 mg/dL; Potassium 4.2 mmol/L (3.3-5.1); Triglycerides 122 mg/dL; Very Low Density Lipoprotein 24 mg/dL (5-40); Vitamin D,25 Hydroxy 42.1 ng/mL (30-100); cholesterol:hdl ratio screen 4.42
== END | disposition home or self-care (01) ==
LOC: MTLAB 07:27
PROVIDERS: PCP Family Medicine; Referring Provider Family Medicine; Visit Provider Family Medicine
DX: Z13.220 Encounter for screening for lipoid disorders (principal); R53.83 Other fatigue; G47.10 Hypersomnia, unspecified; Z13.1 Encounter for screening for diabetes mellitus
CPT/HCPCS: 36415; 80053; 80061; 82306; 83036; 84439; 84443; 85025